=== PATIENT | male | born 1940 | race Caucasian/White ===

== ENCOUNTER → 2018-03-09 | Outpatient (REF) | payer BC ==
[2018-03-09 17:37] LABS: INR 1.07
[2018-03-09 17:38] LABS: PARTIAL THROMBOPLASTIN TIME 32.2 SECONDS (25.4-37.6)
[2018-03-10 14:24] LABS: FERRITIN 49 NG/ML (26-388); IRON (FE) 17 UG/DL (65-175); PERCENT SATURATION 6.1 % (19.7-50.0); TOTAL IRON BINDING CAPACITY 277 UG/DL (250-450)
== END ==
LOC: M LAB REF 16:54
DX: Z01.812 Encounter for preprocedural laboratory examination (principal); C34.32 Malignant neoplasm of lower lobe, left bronchus or lung

== ENCOUNTER → 2018-03-29 | Outpatient (CLI) | payer BC | LOC: M PLARAD 09:02 | DX: C34.32 Malignant neoplasm of lower lobe, left bronchus or lung (principal) | CPT/HCPCS: 78815 ==

== ENCOUNTER → 2018-04-14 | Outpatient (CLI) | payer BC ==
[~2018-04-14] MED LIST: CLINDAMYCIN 600 MG/50 ML PREMIX BAG As Ordered; LIDOCAINE 2% MDV 20 ML VIAL As Ordered
== END | disposition home or self-care (01) ==
LOC: M IRPRO 09:13
DX: C34.90 Malignant neoplasm of unspecified part of unspecified bronchus or lung (principal)
CPT/HCPCS: 36561

== ENCOUNTER 2018-04-27 12:37 | Outpatient (CLI) | payer BC ==
[~2018-04-27 12:37] MED LIST changes: -CLINDAMYCIN 600 MG/50 ML PREMIX BAG As Ordered; -LIDOCAINE 2% MDV 20 ML VIAL As Ordered; +SODIUM CHLORIDE 0.9% INJ 10 ML SYR IV
[2018-04-27 12:55] LABS: IMMEDIATE SPIN CROSSMATCH 1 2
[2018-04-27] MEDS: diphenhydrAMINE 25 MG CAP PO (13:06)
[2018-04-27] MEDS: ACETAMINOPHEN TAB 650MG DOSE (2X325MG) PO (13:06)
[2018-04-27] MEDS: FUROSEMIDE 20 MG/2 ML VIAL (J1940) IV (16:50)
== END 2018-04-27 16:50 | disposition home or self-care (01) ==
LOC: M INFU 12:37
DX: D64.9 Anemia, unspecified (principal); C34.90 Malignant neoplasm of unspecified part of unspecified bronchus or lung; Z88.0 Allergy status to penicillin
CPT/HCPCS: 36430

== ENCOUNTER → 2018-04-27 | Outpatient (REF) | payer BC ==
[2018-04-27 10:42] LABS: RETIC HEMOGLOBIN EQUIVALENT 33.6 pg (24-36); RETICULOCYTE # 49.7 10^9/L (17-77); RETICULOCYTE % 1.8 % (0.5-1.5)
[2018-04-27 11:01] LABS: FERRITIN 47 NG/ML (26-388); IRON (FE) 28 UG/DL (65-175); PERCENT SATURATION 10.1 % (19.7-50.0); TOTAL IRON BINDING CAPACITY 278 UG/DL (250-450); TOTAL PROTEIN 6.9 GM/DL (6.4-8.2)
[2018-04-28 11:24] LABS: ALBUMIN % 47.8 % (55.8-66.1); ALPHA-1-GLOBULIN % 6.9 % (2.9-4.9); ALPHA-1-GLOBULINS 0.48 GM/DL (0.17-0.41); ALPHA-2-GLOBULINS 1.13 GM/DL (0.42-0.99); ALPHA-2-GLOBULINS % 16.4 % (7.1-11.8); BETA-1-GLOBULINS 0.49 GM/DL (0.28-0.60); BETA-1-GLOBULINS % 7.1 % (4.7-7.2); BETA-2-GLOBULINS 0.49 GM/DL (0.19-0.55); BETA-2-GLOBULINS % 7.1 % (3.2-6.5); GAMMA GLOBULIN % 14.7 % (11.1-18.8); GAMMA GLOBULINS 1.01 GM/DL (0.65-1.58)
[2018-04-28 14:17] LABS: HAPTOGLOBIN 318 mg/dL (34-200)
== END ==
LOC: M LAB REF 10:32
DX: C34.32 Malignant neoplasm of lower lobe, left bronchus or lung (principal); D64.9 Anemia, unspecified

== ENCOUNTER 2018-06-16 12:02 | Outpatient (CLI) | payer BC ==
[2018-06-16] MEDS: diphenhydrAMINE 25 MG CAP PO ×2 (13:40)
[2018-06-16] MEDS: ACETAMINOPHEN TAB 650MG DOSE (2X325MG) PO ×2 (13:41)
[2018-06-16] MEDS: FUROSEMIDE 20 MG/2 ML VIAL (J1940) IV ×2 (18:36)
[2018-06-16] MEDS: SODIUM CHLORIDE 0.9% INJ 10 ML SYR IV ×2 (18:47)
[2018-06-17] MEDS ORDERED: SODIUM CHLORIDE 0.9% INJ 10 ML SYR IV ×2 (09:00)
== END 2018-06-16 19:30 | disposition home or self-care (01) ==
LOC: M OPCLI4PV 12:02 → M MSPAV 12:31 → M OPCLI4PV 19:30
DX: D64.9 Anemia, unspecified (principal)
CPT/HCPCS: 36430

== ENCOUNTER → 2018-07-16 | Outpatient (CLI) | payer BC ==
[~2018-07-16] MED LIST changes: +BAYE325T12 PO; +CART240C3 PO; +CLOP75TA2 PO; +FURO20TA2 PO; +GLIM4TAB PO; +IRON27TA2 PO; +LIDO2.5C15 TOP; -SODIUM CHLORIDE 0.9% INJ 10 ML SYR IV
--- NOTE | 2018-07-16 12:08 | REP ---
REASON: History of lung carcinoma. COMPARISON: 11/03/2011 The lack of intravenous contrast decreases the sensitivity of the exam. There is mediastinal and possible hilar adenopathy, increased from the prior exam. There are no pleural or pericardial effusions. The imaged upper abdomen again shows bilateral low-density adrenal gland masses, status quo, and having consistently low Hounsfield unit readings indicating benignity. The imaged osseous structures show no significant changes from the prior exam. Evaluation of the lung mccauley shows a cavitating mass in the left lower lobe which measures approximately 6 x 3.8 x 3.6 cm. This represents a change from the prior CT. There is a new small asymmetric nodule measuring 6 mm in the left upper lobe. There is a new spiculated nodule in the right lower lobe anteriorly abutting the major fissure and measuring 1.1 cm. Chronic bibasilar fibrotic changes are again suspected, status quo. IMPRESSION: 1. Adenopathy and suspected adenopathy but seen on a limited noncontrast-enhanced examination as described above. 2. Stable benign-appearing adrenal gland masses. 3. Cavitating mass left lower lobe with additional pulmonary nodules and chronic lung field changes as described above. 4. Other findings as described above. Electronically Signed by Matthew Sorto DO 07/16/2018 12:27 P
--- NOTE | 2018-07-16 12:33 | REP ---
REASON: History of carcinoma of the lung. COMPARISON: None. For description of the lung bases, please see the CT report made same day. Lack of intravenous contrast decreases the sensitivity of the exam. The liver, gallbladder, spleen, and pancreas are grossly within normal limits. There are bilateral nephroliths not causing obstructive phenomenon. There are bilateral renovascular calcifications. There is calcific atherosclerotic change seen throughout the abdominal aorta. The colon is content filled. There is no free fluid or free air in the abdomen. Retroperitoneal adenopathy can not be evaluated for due to the lack of oral bowel preparatory contrast and intravenous contrast, I cannot accurately assess for mesenteric lymphadenopathy. There are no gross mesenteric masses suspected. Multiple noncontrast opacified bowel loops abut the retroperitoneum making evaluation for retroperitoneal adenopathy difficult. Again, I see no gross masses, although I cannot rule out retroperitoneal adenopathy. There is a large amount of content in the rectosigmoid vault. Bone window technique throughout the exam shows chronic spinal, hip, and sacroiliac joint degenerative changes. IMPRESSION: Exam limitations and findings as described above. Electronically Signed by Matthew Sorto DO 07/16/2018 01:12 P
== END ==
LOC: M RAD 11:01
PROVIDERS: ATTEND Internal Medicine Medical Oncology
DX: C34.90 Malignant neoplasm of unspecified part of unspecified bronchus or lung (principal)

== ENCOUNTER → 2018-11-10 | Outpatient (CLI) | payer BC ==
[~2018-11-10] MED LIST changes: +GASTROGRAFIN SOLUTION 30ML (Q9963) As Ordered ONE; +ISOVUE-370 76% 100ML VIAL (Q9967) As Ordered ONE
--- NOTE | 2018-11-11 03:18 | REP ---
Clinical: Colon cancer. Technique: Axial contrast enhanced images from the thoracic inlet to the upper abdomen with coronal and sagittal re-formations using 100 ml Isovue 370 intravenous contrast material. Comparison: 07/16/2018 Findings: The lung mccauley demonstrate bilateral predominantly mid to lower lobe chronic fibrosis and interstitial changes along with scattered subtle ground-glass type opacity and mild bronchiectasis. 11 mm soft tissue nodule along the periphery of the right upper lobe (image 47) remains stable. Area of presumed chronic atelectasis/consolidation along the medial left upper lobe appears slightly decreased from prior examination and includes a subtle spiculated 1.9 cm soft tissue component along the superior aspect (image 46) which is similar to prior examination and minimally decreased as well. No further acute nodule or mass lesion identified. Mediastinum demonstrates stable adenopathy with pretracheal and precarinal lymph nodes measuring up to 1.7 cm. Atherosclerotic changes to the thoracic aorta and coronary arteries again noted and unchanged. No evidence for aortic aneurysm or dissection. No cardiomegaly or pericardial effusion. Surrounding musculoskeletal structures demonstrate age-related changes without focal osseous abnormality. Impression: 1. Relatively chronic and stable-appearing changes including 11 mm nodule in the periphery of the right upper lobe and somewhat spiculated mass-like component to the medial left lower lobe chronic opacity which may be minimally decreased in size. 2. Underlying diffuse chronic areas of fibrosis, scarring and minimal bronchiectasis primarily involving the mid to lower lobes unchanged. Stable mediastinal adenopathy. 3. No obvious new acute mediastinal or pleuroparenchymal process. Electronically Signed by Behzad Araiza MD 11/11/2018 03:09 A
--- NOTE | 2018-11-11 03:28 | REP ---
Clinical: History of lung cancer. Technique: Axial contrast enhanced and delayed images of the abdomen using oral (per protocol) and 100 ml Isovue 370 intravenous contrast material with coronal and sagittal re-formations. Comparison: 07/16/2018. Findings: Please refer to chest CT for evaluation of the lung bases. Liver, spleen, pancreas, gallbladder, and bilateral kidneys are normal / stable. Subcentimeter renal hypodensities are too small to characterize but likely represent cysts. Hyperplastic changes to the bilateral adrenal glands remain stable. Evaluation of the visualized enteric system demonstrates moderate to significant colonic fecal stasis without obstruction or acute inflammatory process. Significant atherosclerotic changes to the visualized aorta and with mural thrombus noted. Incidental circumaortic left renal veins noted. No ascites. No intraperitoneal or retroperitoneal adenopathy. Impression: 1. Stable hyperplastic changes to the bilateral adrenal glands. 2. Subcentimeter bilateral renal hypodensities too small to characterize but likely representing cysts. 3. Colonic fecal stasis. Electronically Signed by Behzad Araiza MD 11/11/2018 03:19 A
== END ==
LOC: M RAD 11:03
PROVIDERS: ATTEND Internal Medicine Hematology & Oncology
DX: C34.32 Malignant neoplasm of lower lobe, left bronchus or lung (principal)
CPT/HCPCS: 71260; 74160; Q9963; Q9967

== ENCOUNTER → 2018-12-19 | Outpatient (CLI) | payer BC ==
[~2018-12-19] MED LIST changes: +AMIO200T PO; +CLAR10CA3 PO; +CORE3.12 PO; -GASTROGRAFIN SOLUTION 30ML (Q9963) As Ordered ONE; -ISOVUE-370 76% 100ML VIAL (Q9967) As Ordered ONE
--- NOTE | 2018-12-19 14:45 | REP ---
LIMITED ULTRASOUND RIGHT PLEURAL SPACE: Real-time sonographic evaluation of the right pleural space performed prior to a scheduled thoracentesis. There is minimal right pleural fluid present. Scheduled thoracentesis procedure is not performed as it would be virtually impossible to aspirate the tiny amount of right pleural fluid present. Electronically Signed by Ab Gruber MD 12/19/2018 07:50 P
== END ==
LOC: M RADPRO 12:08
PROVIDERS: ATTEND Internal Medicine Cardiovascular Disease
DX: J90 Pleural effusion, not elsewhere classified (principal)

== ENCOUNTER → 2018-12-24 | Outpatient (REF) ==
[~2018-12-24] MED LIST changes: +CIPR5SUS PO; +HYDR-3910 PO; +ISOS20TA PO
[2018-12-24 13:38] LABS: ALBUMIN 3.1 GM/DL (3.2-5.2); BILIRUBIN,TOTAL 0.3 MG/DL (0.2-1.0); CALCIUM LEVEL 7.8 MG/DL (8.8-10.2); CHOLESTEROL RISK RATIO 3.86 (<5); CREATININE FOR GFR 2.2 MG/DL (0.70-1.30); MAGNESIUM LEVEL 2.8 MG/DL (1.8-2.4); POTASSIUM SERUM 5.2 MEQ/L (3.5-5.1)
== END ==
LOC: M LAB REF 07:04
DX: Z00.00 Encounter for general adult medical examination without abnormal findings (principal)

== ENCOUNTER → 2019-02-13 | Outpatient (CLI) | payer BC ==
[~2019-02-13] MED LIST changes: +ACET1TAB55 PO; +ARTH650T17 PO; +AZIT50VL IV; +CARV3.12 PO; +CEFT1INJ4 IV; +FERR325T18 PO; +FURO40TA2 PO; -GLIM4TAB PO; +GLIM4TAB5 PO; +IPRA0.00 NEB; +ISOS30TA4 PO; +K-TA10TA2 PO; +LORA-436 PO; +PRED20TA PO; +XANA0.25 PO; +XARE15TA PO; +[UNRECOGNIZED DRUG - CODE] IV; +[UNRECOGNIZED DRUG - CODE] IV
--- NOTE | 2019-02-13 09:10 | REP ---
Bilateral renal artery Doppler ultrasound: Right Kidney: Renal length is 9.6 cm. Extraparenchymal renal artery. Peak renal artery flow velocity the 338 cm/ sec Peak aortic velocity: 48 cm/sec Renal/aortic ratio: 7.0 Intraparenchymal renal arteries. Resistive index: upper pole 0.90 mid pole 0.89 lower pole 0.92 Acceleration time: upper pole 0.066 mid pole 0.053 lower pole 0.050 Left kidney: Renal length is 9.7 cm. Extraparenchymal renal artery: Peak renal artery flow velocity: 163 cm/sec. Peak aortic velocity: 48 cm/sec Renal/aortic ratio: 3.4 Intraparenchymal renal arteries: Resistive index: Upper pole 0.91 mid pole 0.83 lower pole 0.93 Acceleration time: Upper pole 0.058 mid pole 0.044 lower pole 0.075 Impression: The peak flow velocity of the right renal artery is elevated, possibly representing stenosis. I would recommend follow-up renal artery MRA for further evaluation. Bilateral renal ultrasound: The right kidney measures 9.6 x 5.6 x 4.7 cm. The left kidney measures 9.7 x 4.9 x 5.8 cm. The kidneys are in the low normal size range. Renal cortical echogenicity is normal bilaterally. There is no hydronephrosis, calculus, solid or cystic mass on the right on the left. The Bladder: The pre void bladder volume is 157 ml. Postvoid bladder volume is 18 ml. Postvoid residual is 11%. No bladder wall masses or polyps are identified. Mild bladder wall trabeculations are noted. Impression: The kidneys are in the low normal size range. There are no renal masses or cysts. There are no calculi. There is no hydronephrosis. Mild bladder wall trabeculations are identified. No bladder wall masses or polyps are identified. Postvoid bladder residual is 11%. Electronically Signed by Ab Stacy MD 02/13/2019 09:02 A
== END ==
LOC: M RAD 06:17
PROVIDERS: ATTEND Internal Medicine Nephrology
DX: N18.4 Chronic kidney disease, stage 4 (severe) (principal); I12.9 Hypertensive chronic kidney disease with stage 1 through stage 4 chronic kidney disease, or unspecified chronic kidney disease; E11.22 Type 2 diabetes mellitus with diabetic chronic kidney disease

== ENCOUNTER 2019-03-08 06:53 | Observation (INO) | payer BC ==
[~2019-03-08] VITALS: Ht 170.2 cm; Wt 55.0 kg
[~2019-03-08 06:53] MED LIST changes: -ACET1TAB55 PO; -ARTH650T17 PO; -AZIT50VL IV; +BUPIVACAINE HCL 0.5% 10 ML VIAL As Ordered ONE; -CARV3.12 PO; -CEFT1INJ4 IV; -FERR325T18 PO; -FURO40TA2 PO; +GLIM4TAB PO; -GLIM4TAB5 PO; +HEPARIN 1,000 UNITS/ML 10ML VIAL (FOR RADIOLOGY& DIALYSIS ONLY) As Ordered ONE; -IPRA0.00 NEB; -ISOS30TA4 PO; +ISOVUE-300 61% 50ML VIAL (Q9967) As Ordered ONE; -K-TA10TA2 PO; +LIDOCAINE 2% MDV 20 ML VIAL As Ordered ONE; -LORA-436 PO; +MIDAZOLAM INJ 2 MG/2 ML VIAL (J2250) As Ordered ONE; -PRED20TA PO; -XANA0.25 PO; -XARE15TA PO; -[UNRECOGNIZED DRUG - CODE] IV; -[UNRECOGNIZED DRUG - CODE] IV; +diphenhydrAMINE INJ 50MG/ML VIAL (J1200) As Ordered ONE; +fentaNYL 100 MCG/2 ML INJECTION (J3010) As Ordered ONE
[2019-03-08 07:50] LABS: CALCIUM LEVEL 8.9 MG/DL (8.8-10.2); CREATININE FOR GFR 2.32 MG/DL (0.70-1.30); GLOMERULAR FILTRATION RATE 29.1 (>42); POTASSIUM SERUM 4.9 MEQ/L (3.5-5.1)
[2019-03-08] MEDS ORDERED: PROTAMINE SULF INJ 50 MG/5 ML VIAL (J2720) As Ordered ONE (08:41)
[2019-03-08] MEDS ORDERED: ACETAMINOPHEN 325 MG TAB As Ordered ONE (13:36)
--- NOTE | 2019-03-08 13:52 | IPNPDOC ---
Date Seen The patient was seen on 03/08/19. Progress Note Vascular Surgery Dr Ruby HPI: 78year oldM scheduled for renal angiogram for possible CASSANDRA this AM with Dr Ruby. Access obtained via Rt groin, pt completed procedure without complications, no intervention required. The pt was ordered to continue BR from approximately 9 AM to noon. Plan for D/C at 1 pm. I was called by IR RN related to the pt attempting to stand and noting Rt leg weakness. Foot has been warm to touch and pulses easily obtained with doppler. The pt has not had any LISA, vision change, dizziness, dysarthria, dysphagia. No other weakness. Reports numb sensation anterior thigh area. Denies any fevers, chills, weakness, fatigue, Headache, Chest Pain, Shortness of breath, cough, palpitations, abdominal pain, N/V/D or changes in bowel or bladder habits. PMHx: Afib CHF Stage 4 lung CA, on immunotherapy, follows with Dr Martell. Lung biopsy 01/17. PE: GEN: 78yoM, appears stated age. Well-nourished, well developed. No acute distress. Alert and oriented x 3, following commands. HEENT: Normocephalic, atraumatic. Pupils are equal, round, and reactive to light. Extraocular movements are intact. No nystagmus appreciated. Sclera are nonicteric. Conjunctiva without injection. No facial asymmetry. Moist mucous membranes. CHEST: Regular rate and rhythm, +S1, +S2 LUNGS: Clear to auscultation bilaterally. No wheezes, rales, or rhonchi. ABD: Round, soft, non-tender, non-distended. EXT: Pulses are obtained with doppler. B/L feet are warm with good cap refill. No lower extremity edema appreciated. NEURO: Alert and oriented x 3. Cranial nerves III-XII are intact. The pt has decreased sensation anterior thigh area. The pt has good strength plantar and dorsiflexion of foot. He has difficulty holding his leg off the stretcher and has decreased strength with flexion and extension at knee. A&P: 1. S/P Renal artery angiogram 03/08/[address] Ruby. No intervention was required. The pt is reviewed and examined as per Dr Ruby, Dr Ruby administered a deep local injection at the access site Rt Femoral artery with lidocaine marcaine mix. It is possible the pt's symptoms are anesthetic induced. Plan to observe the pt in IR for now. Update labs. Request Hospitalist consult for any additional recommendations prior to dischar ging the pt home. Monitor. VS, I&O, 24H, Fishbone Vital Signs/I&O Vital Signs Date Time Temp Pulse Resp B/P (MAP) Pulse Ox O2 Delivery O2 Flow Rate FiO2 03/08/19 11:00 54 03/08/19 10:31 18 95 03/08/19 08:55 3 03/08/19 07:22 98.1 Laboratory Data 24H LABS Laboratory Tests 2 03/08/19 07:15: Anion Gap 5L, Glomerular Filtration Rate 29.1L, Blood Urea Nitrogen 83H, Creatinine 2.32H, Sodium Level 141, Potassium Level 4.9, Chloride Level 109H, Carbon Dioxide Level 27, Calcium Level 8.9 CBC/BMP Laboratory Tests 03/08/19 07:15 Calcium Level 8.9 Aura Moss Mar 08, 2019 13:52
[2019-03-08 14:16] LABS: HEMATOCRIT 30.8 % (42.0-52.0); HEMOGLOBIN 9.7 g/dl (13.5-17.5); MEAN CORPUSCULAR HEMOGLOBIN 30.7 pg (27.0-33.0); MEAN CORPUSCULAR HGB CONC 31.5 g/dl (32.0-36.5); MEAN CORPUSCULAR VOLUME 97.5 fl (80.0-96.0); PLATELET COUNT, AUTOMATED 230 10^3/uL (150-450); RED BLOOD COUNT 3.16 10^6/uL (4.30-6.10); WHITE BLOOD COUNT 9.5 10^3/uL (4.0-10.0)
[2019-03-08 14:44] LABS: CALCIUM LEVEL 8.8 MG/DL (8.8-10.2); CREATININE FOR GFR 2.3 MG/DL (0.70-1.30); GLOMERULAR FILTRATION RATE 29.4 (>42); POTASSIUM SERUM 4.4 MEQ/L (3.5-5.1)
[2019-03-08] MEDS ORDERED: FERR325T18 PO (15:03)
[2019-03-08] MEDS ORDERED: LORA-436 PO (15:03)
[2019-03-08] MEDS ORDERED: ISOS30TA4 PO (15:03)
[2019-03-08] MEDS ORDERED: ACET1TAB55 PO (15:03)
[2019-03-08] MEDS ORDERED: FURO40TA2 PO (15:03)
[2019-03-08] MEDS ORDERED: ACETAMINOPHEN 325 MG TAB PO PRN (15:15)
--- NOTE | 2019-03-08 15:20 | HPEPDOC ---
[facility] Medical History & Physical Date of Admission Mar 08, 2019 Date of Service: Mar 08, 2019 History and Physical CHIEF COMPLAINT: left leg numbness HISTORY OF PRESENT ILLNESS: 78 yo male was in IR today for renal angiogram for concern of renal artery stenosis. Post procedure patient complained of left thigh numbness. No other medical complaints. PAST MEDICAL HISTORY: 1. afib 2. CHF 3. Lung CA ALLERGIES: Please see below. REVIEW OF SYSTEMS: Negative except as per HPI HOME MEDICATIONS: Please see below. PHYSICAL EXAMINATION: VITAL SIGNS: See below GENERAL APPEARANCE: NAD, elderly, frail HEENT: NC/AT CARDIOVASCULAR: +S1S2, irregular LUNGS: CTA B/L ABDOMEN: soft, NT, +BS, bandage RLQ, area is C/D/I. EXTREMITIES: no edema NEUROLOGICAL: strength 5/5 throughout, sensation intact throughout PSYCHIATRIC: AAOx3, in good spirits LABORATORY DATA: See below. MICROBIOLOGY: Please see below. A/P: 78 yo male with LLE numbness status post renal angiogram #LLE numbness - likely secondary to local anaesthesia from procedure today - admitting for observation - neuro checks #afib #CHF #squamous lung CA #DVT prophylaxis Vital Signs Vital Signs Date Time Temp Pulse Resp B/P (MAP) Pulse Ox O2 Delivery O2 Flow Rate FiO2 03/08/19 13:30 48 16 95 03/08/19 08:55 3 03/08/19 07:22 98.1 Laboratory Data Labs 24H Laboratory Tests 2 03/08/19 07:15: Anion Gap 5L, Glomerular Filtration Rate 29.1L, Blood Urea Nitrogen 83H, Creatinine 2.32H, Sodium Level 141, Potassium Level 4.9, Chloride Level 109H, Carbon Dioxide Level 27, Calcium Level 8.9 03/08/19 14:03: Anion Gap 6L, Glomerular Filtration Rate 29.4L, Blood Urea Nitrogen 81H, Creatinine 2.30H, Sodium Level 140, Potassium Level 4.4, Chloride Level 106, Carbon Dioxide Level 28, Calcium Level 8.8, Nucleated Red Blood Cells % (auto) 0.0 CBC/BMP Laboratory Tests 03/08/19 07:15 Calcium Level 8.9 03/08/19 14:03 Calcium Level 8.8, Red Blood Count 3.16 L, Mean Corpuscular Volume 97.5 H, Mean Corpuscular Hemoglobin 30.7, Mean Corpuscular Hemoglobin Concent 31.5 L, Red Cell Distribution Width 16.0 H Home Medications Scheduled Amiodarone HCl (Amiodarone HCl) 200 Mg Tablet, 200 MG PO DAILY Aspirin (Aspirin) 325 Mg Tab, 325 MG PO DAILY Carvedilol (Coreg) 3.125 Mg Tablet, 3.125 MG PO BID Ferrous Sulfate (Ferrous Sulfate) 325 Mg Tablet, 325 MG PO DAILY Furosemide (Furosemide) 40 Mg Tablet, 40 MG PO DAILY Glimepiride (Glimepiride) 4 Mg Tab, 4 MG PO DAILY Isosorbide Mononitrate (Isosorbide Mononitrate ER) 30 Mg Tab.er.24h, 30 MG PO DAILY Loratadine (Loratadine) 10 Mg Tablet, 10 MG PO DAILY Scheduled PRN Acetaminophen (Acetaminophen) 325 Mg Tablet, 650 MG PO Q4H PRN for PAIN Allergies Coded Allergies: Penicillins (Verified Allergy, Mild, RASH, 03/08/19) A-FIB/CHADSVASC A-FIB History Current/History of A-Fib/PAF?: Yes Current PO Anticoag Therapy: No DAI JEFFERSON MD Mar 08, 2019 15:19
[2019-03-08] MEDS: CARVedilol 3.125 MG TAB PO SCH (20:35)
[2019-03-08 22:00] VITALS: BP 139/63
[2019-03-09 06:00] VITALS: BP 103/51
[2019-03-09 06:42] LABS: HEMATOCRIT 32.3 % (42.0-52.0); HEMOGLOBIN 10.3 g/dl (13.5-17.5); MEAN CORPUSCULAR HEMOGLOBIN 31.5 pg (27.0-33.0); MEAN CORPUSCULAR HGB CONC 31.9 g/dl (32.0-36.5); MEAN CORPUSCULAR VOLUME 98.8 fl (80.0-96.0); PLATELET COUNT, AUTOMATED 233 10^3/uL (150-450); RED BLOOD COUNT 3.27 10^6/uL (4.30-6.10); WHITE BLOOD COUNT 9.2 10^3/uL (4.0-10.0)
[2019-03-09 07:00] LABS: ALBUMIN 3.3 GM/DL (3.2-5.2); BILIRUBIN,TOTAL 0.5 MG/DL (0.2-1.0); CALCIUM LEVEL 8.9 MG/DL (8.8-10.2); CREATININE FOR GFR 2.2 MG/DL (0.70-1.30); POTASSIUM SERUM 4.6 MEQ/L (3.5-5.1); TOTAL PROTEIN 7.4 GM/DL (6.4-8.2)
[2019-03-09] MEDS ORDERED: GLIMEPIRIDE 2 MG TAB PO SCH (08:00)
[2019-03-09 08:30] VITALS: BP 87/48
[2019-03-09] MEDS ORDERED: AMIODARONE 200 MG TAB (PACERONE) PO SCH (09:00)
[2019-03-09] MEDS ORDERED: ISOSORBIDE MON. (IMDUR) 30 MG XR TAB PO SCH (09:00)
[2019-03-09] MEDS ORDERED: LORATADINE 10 MG TAB PO SCH (09:00)
[2019-03-09] MEDS ORDERED: FUROSEMIDE 40 MG TAB PO SCH (09:00)
[2019-03-09] MEDS ORDERED: FERROUS SULFATE 325MG TAB PO SCH (09:00)
[2019-03-09 10:00] VITALS: BP 140/60
[2019-03-09 10:08] VITALS: BP 140/60
[2019-03-09] MEDS: CARVedilol 3.125 MG TAB PO SCH (10:08)
--- NOTE | 2019-03-09 11:08 | IPNPDOC ---
Date Seen The patient was seen on 03/09/19. Progress Note Vascular Surgery Dr Ruby HPI: 78year oldM scheduled for renal angiogram for possible CASSANDRA this AM with Dr Ruby. Access obtained via Rt groin, pt completed procedure without complications, no intervention required. The pt was noted to have Rt leg weakness/numbness after the procedure. Admission for observation arranged as per Hospitalist. This AM the pt reports RLE has returned to baseline. Denies weakness or numbness and states he has been OOB ambulating with walker. Denies any fevers, chills, weakness, fatigue, Headache, Chest Pain, Shortness of breath, cough, palpitations, abdominal pain, N/V/D or changes in bowel or bladder habits. PMHx: Afib CHF Stage 4 lung CA, on immunotherapy, follows with Dr Martell. Lung biopsy 01/17. PE: GEN: 78yoM, appears stated age. Well-nourished, well developed. No acute distress. Alert and oriented x 3, following commands. HEENT: Normocephalic, atraumatic. Pupils are equal, round, and reactive to light. Extraocular movements are intact. No nystagmus appreciated. Sclera are nonicteric. Conjunctiva without injection. No facial asymmetry. Moist mucous membranes. CHEST: Regular rate and rhythm, +S1, +S2 LUNGS: Clear to auscultation bilaterally. No wheezes, rales, or rhonchi. ABD: Round, soft, non-tender, non-distended. EXT: Pulses are obtained with doppler. B/L feet are warm with good cap refill. No lower extremity edema appreciated. NEURO: Alert and oriented x 3. Cranial nerves III-XII are intact. The pt has nml sensation to light touch RLE. The pt has equal strength LEs B/L A&P: 1. S/P Renal artery angiogram 03/08/[address] Ruby. No intervention was required. The pt has been reviewed and examined as per Dr Ruby, Dr Ruby administered a deep local injection at the access site Rt Femoral artery with lidocaine marcaine mix. The pt's symptoms were likely anesthetic induced, the Pt has returned to his baseline status. VS, I&O, 24H, Fishbone Vital Signs/I&O Vital Signs Date Time Temp Pulse Resp B/P (MAP) Pulse Ox O2 Delivery O2 Flow Rate FiO2 03/09/19 10:08 60 140/60 03/09/19 06:00 97.7 20 99 03/08/19 08:55 3 I&O- Last 24 Hours up to 6 AM 03/09/19 06:00 Intake Total 240 ml Output Total 500 ml Balance -260 ml Laboratory Data 24H LABS Laboratory Tests 2 03/08/19 14:03: Nucleated Red Blood Cells % (auto) 0.0, Anion Gap 6L, Glomerular Filtration Rate 29.4L, Blood Urea Nitrogen 81H, Creatinine 2.30H, Sodium Level 140, Potassium Level 4.4, Chloride Level 106, Carbon Dioxide Level 28, Calcium Level 8.8 03/08/19 20:08: Bedside Glucose (Misc Panel) 172H 03/09/19 05:57: Bedside Glucose (Misc Panel) 47L 03/09/19 06:22: Nucleated Red Blood Cells % (auto) 0.0, Anion Gap 4L, Glomerular Filtration Rate 31.0L, Blood Urea Nitrogen 77H, Creatinine 2.20H, Sodium Level 141, Potassium Level 4.6, Chloride Level 110H, Carbon Dioxide Level 27, Calcium Level 8.9, Aspartate Amino Transf (AST/SGOT) 16, Alanine Aminotransferase (ALT/SGPT) 17, Alkaline Phosphatase 77, Total Bilirubin 0.5, Total Protein 7.4, Albumin 3.3, Albumin/Globulin Ratio 0.80L 03/09/19 06:55: Bedside Glucose (Misc Panel) 108 CBC/BMP Laboratory Tests 03/08/19 14:03 Red Blood Count 3.16 L, Mean Corpuscular Volume 97.5 H, Mean Corpuscular Hemoglobin 30.7, Mean Corpuscular Hemoglobin Concent 31.5 L, Red Cell Distribution Width 16.0 H, Calcium Level 8.8 03/09/19 06:22 Red Blood Count 3.27 L, Mean Corpuscular Volume 98.8 H, Mean Corpuscular Hemoglobin 31.5, Mean Corpuscular Hemoglobin Concent 31.9 L, Red Cell Distribution Width 16.0 H, Calcium Level 8.9, Aspartate Amino Transf (AST/SGOT) 16, Alanine Aminotransferase (ALT/SGPT) 17, Alkaline Phosphatase 77, Total Bilirubin 0.5, Total Protein 7.4, Albumin 3.3 Aura Moss Mar 09, 2019 11:07
--- NOTE | 2019-03-09 12:42 | DS.PDOC ---
Discharge Summary General Date of Admission Mar 08, 2019 at 15:55 Date of Discharge 03/09/19 Discharge Summary PROCEDURES PERFORMED DURING STAY: [None]. ADMITTING DIAGNOSES: 1. leg numbness DISCHARGE DIAGNOSES: 1. afib 2. CHF 3. Lung CA 4. leg numbness secondary to local anaesthesia COMPLICATIONS/CHIEF COMPLAINT: Right Leg Numbness. HISTORY OF PRESENT ILLNESS: 78 yo male for right leg numbness s/p renal angiogram. HOSPITAL COURSE: Patient admitted for further evaluation and treatment. Symptoms resolved. Seen by PT and cleared. Hospital stay otherwise unremarkable. DISCHARGE MEDICATIONS: Please see below. ALLERGIES: Please see below. PHYSICAL EXAMINATION: VITAL SIGNS: See below GENERAL APPEARANCE: NAD, elderly, frail HEENT: NC/AT CARDIOVASCULAR: +S1S2, irregular LUNGS: CTA B/L ABDOMEN: soft, NT, +BS, bandage RLQ, area is C/D/I. EXTREMITIES: no edema NEUROLOGICAL: strength 5/5 throughout, sensation intact throughout PSYCHIATRIC: AAOx3, in good spirits LABORATORY DATA: Please see below. ACTIVITY: [As tolerated]. DISPOSITION: 01 Home, Self-Care. DISCHARGE INSTRUCTIONS: 1. follow up pcp in 2-5 days 2. follow up vascular surgery as scheduled. DISCHARGE CONDITION: [Stable]. TIME SPENT ON DISCHARGE: 25 minutes. Vital Signs/I&Os Vital Signs Date Time Temp Pulse Resp B/P (MAP) Pulse Ox O2 Delivery O2 Flow Rate FiO2 03/09/19 10:08 60 140/60 03/09/19 06:00 97.7 20 99 03/08/19 08:55 3 I&O- Last 24 Hours up to 6 AM 03/09/19 06:00 Intake Total 240 ml Output Total 500 ml Balance -260 ml Laboratory Data Labs 24H Laboratory Tests 2 03/08/19 14:03: Nucleated Red Blood Cells % (auto) 0.0, Anion Gap 6L, Glomerular Filtration Rate 29.4L, Blood Urea Nitrogen 81H, Creatinine 2.30H, Sodium Level 140, Potassium Level 4.4, Chloride Level 106, Carbon Dioxide Level 28, Calcium Level 8.8 03/08/19 20:08: Bedside Glucose (Misc Panel) 172H 03/09/19 05:57: Bedside Glucose (Misc Panel) 47L 03/09/19 06:22: Nucleated Red Blood Cells % (auto) 0.0, Anion Gap 4L, Glomerular Filtration Rate 31.0L, Blood Urea Nitrogen 77H, Creatinine 2.20H, Sodium Level 141, Potassium Level 4.6, Chloride Level 110H, Carbon Dioxide Level 27, Calcium Level 8.9, Aspartate Amino Transf (AST/SGOT) 16, Alanine Aminotransferase (ALT/SGPT) 17, Alkaline Phosphatase 77, Total Bilirubin 0.5, Total Protein 7.4, Albumin 3.3, Albumin/Globulin Ratio 0.80L 03/09/19 06:55: Bedside Glucose (Misc Panel) 108 CBC/BMP Laboratory Tests 03/08/19 14:03 Red Blood Count 3.16 L, Mean Corpuscular Volume 97.5 H, Mean Corpuscular Hemoglobin 30.7, Mean Corpuscular Hemoglobin Concent 31.5 L, Red Cell Distribution Width 16.0 H, Calcium Level 8.8 03/09/19 06:22 Red Blood Count 3.27 L, Mean Corpuscular Volume 98.8 H, Mean Corpuscular Hemoglobin 31.5, Mean Corpuscular Hemoglobin Concent 31.9 L, Red Cell Distribution Width 16.0 H, Calcium Level 8.9, Aspartate Amino Transf (AST/SGOT) 16, Alanine Aminotransferase (ALT/SGPT) 17, Alkaline Phosphatase 77, Total Bilirubin 0.5, Total Protein 7.4, Albumin 3.3 FSBS Laboratory Tests Test 03/08/19 20:08 03/09/19 05:57 03/09/19 06:55 Range/Units Bedside Glucose (Misc Panel) 172 47 108 83-110 MG/DL Discharge Medications Scheduled Amiodarone HCl (Amiodarone HCl) 200 Mg Tablet, 200 MG PO DAILY, (Reported) Aspirin (Aspirin) 325 Mg Tab, 325 MG PO DAILY, (Reported) Carvedilol (Coreg) 3.125 Mg Tablet, 3.125 MG PO BID, (Reported) Ferrous Sulfate (Ferrous Sulfate) 325 Mg Tablet, 325 MG PO DAILY, (Reported) Furosemide (Furosemide) 40 Mg Tablet, 40 MG PO DAILY, (Reported) Glimepiride (Glimepiride) 4 Mg Tab, 4 MG PO DAILY, (Reported) Isosorbide Mononitrate (Isosorbide Mononitrate ER) 30 Mg Tab.er.24h, 30 MG PO DAILY, (Reported) Loratadine (Loratadine) 10 Mg Tablet, 10 MG PO DAILY, (Reported) Scheduled PRN Acetaminophen (Acetaminophen) 325 Mg Tablet, 650 MG PO Q4H PRN for PAIN, (Reported) Allergies Coded Allergies: Penicillins (Verified Allergy, Mild, RASH, 03/08/19) DAI JEFFERSON MD Mar 09, 2019 12:42
--- NOTE | 2019-03-17 08:04 | REPIR ---
DATE OF PROCEDURE: 03/08/2019 PREOPERATIVE DIAGNOSES: Coronary artery disease, renal artery stenosis. POSTOPERATIVE DIAGNOSES: Coronary artery disease, renal artery stenosis. PROCEDURE: Right common femoral arterial puncture. Selective left renal artery catheter placement with angiogram and pressure measurements. Selective right renal artery catheter placement with angiogram and pressure measurements. MYNX closure of the right common femoral arteriotomy. ATTENDING SURGEON: Dr. Teddy Ruby. ASSISTANTS: Elizabeth Calixto and Waleska Joshi. ANESTHESIA: Local sedation with 1 mg Versed, 50 mcg of fentanyl and 20 mL of 2% lidocaine mixed 0.5% Marcaine, Benadryl 50 mg. FLUORO TIME: 2.4 minutes. CONTRAST: 3.5 mL of Isovue-300. SEDATION TIME: 03:28 a.m. to 08:57 a.m. for a total 37 minutes. HEPARIN 7000 units, protamine 50 mg. COMPLICATIONS: None. DRAINS: None. SPECIMENS: None. IMPLANTS: None. INDICATION: The patient is a 78-year-old male with renal artery stenosis who will undergo angiography with possible angioplasty and stent. Risks, benefits and alternative options were discussed with the patient. DESCRIPTION OF PROCEDURE: The patient was taken to the angiography suite, placed supine on the angiography room table and the right common femoral artery was cannulated. Catheter was advanced into the aorta and into the left renal artery where an angiogram was performed showing no significant stenosis and pressure measurements recorded showing no significant pressure gradient. The catheter was advanced into the right renal artery and an angiogram was performed showing some mild luminal irregularity with pressure measurements showing mild pressure gradient with no intervention required. Catheters and wires were removed. A MYNX closure was used to close the arteriotomy in the right common femoral artery with an additional 10 minutes of adjunctive pressure applied for hemostasis. Dressings were then applied. The patient tolerated the procedure well. All instrument, sponge, needle counts were correct at the end of the case. There were no complications. Dr. Ruby was present for and directed the entire case. The patient was transferred to the recovery room and subsequently discharged in stable condition.
== END 2019-03-09 11:45 | disposition home or self-care (01) ==
LOC: M IRPRO 06:53 → M MS5PR 15:55 → INTOOBSV 15:55
PROVIDERS: ADMIT Surgery Vascular Surgery; ATTEND Surgery Vascular Surgery
DX: I70.1 Atherosclerosis of renal artery (principal); I25.10 Atherosclerotic heart disease of native coronary artery without angina pectoris; E11.9 Type 2 diabetes mellitus without complications; I11.0 Hypertensive heart disease with heart failure; I48.91 Unspecified atrial fibrillation; I50.9 Heart failure, unspecified; C34.92 Malignant neoplasm of unspecified part of left bronchus or lung; R20.2 Paresthesia of skin; Z79.899 Other long term (current) drug therapy; Z95.5 Presence of coronary angioplasty implant and graft; Z72.0 Tobacco use

== ENCOUNTER → 2019-03-22 | Outpatient (REF) | payer BC ==
[~2019-03-22] MED LIST changes: +ACET1TAB55 PO; -BUPIVACAINE HCL 0.5% 10 ML VIAL As Ordered ONE; +FERR325T18 PO; +FURO40TA2 PO; -HEPARIN 1,000 UNITS/ML 10ML VIAL (FOR RADIOLOGY& DIALYSIS ONLY) As Ordered ONE; +ISOS30TA4 PO; -ISOVUE-300 61% 50ML VIAL (Q9967) As Ordered ONE; -LIDOCAINE 2% MDV 20 ML VIAL As Ordered ONE; +LORA-436 PO; -MIDAZOLAM INJ 2 MG/2 ML VIAL (J2250) As Ordered ONE; -diphenhydrAMINE INJ 50MG/ML VIAL (J1200) As Ordered ONE; -fentaNYL 100 MCG/2 ML INJECTION (J3010) As Ordered ONE
== END ==
LOC: M LAB REF 13:25
PROVIDERS: ATTEND Internal Medicine Nephrology
DX: N18.4 Chronic kidney disease, stage 4 (severe) (principal)

== ENCOUNTER → 2019-03-31 | Outpatient (REF) | payer BC ==
[~2019-03-31] MED LIST changes: +ARTH650T17 PO; +AZIT50VL IV; +CARV3.12 PO; +CEFT1INJ4 IV; -GLIM4TAB PO; +GLIM4TAB5 PO; +IPRA0.00 NEB; +K-TA10TA2 PO; +PRED20TA PO; +XANA0.25 PO; +XARE15TA PO; +[UNRECOGNIZED DRUG - CODE] IV; +[UNRECOGNIZED DRUG - CODE] IV
[2019-03-31 18:19] LABS: ALBUMIN 3.6 GM/DL (3.2-5.2); CALCIUM LEVEL 8.3 MG/DL (8.8-10.2); CREATININE FOR GFR 2.28 MG/DL (0.70-1.30); GLOMERULAR FILTRATION RATE 29.7 (>42); PHOSPHORUS LEVEL 3.5 MG/DL (2.5-4.9); POTASSIUM SERUM 4.5 MEQ/L (3.5-5.1)
== END ==
LOC: M LAB REF 16:49
PROVIDERS: ATTEND Internal Medicine Nephrology
DX: N18.4 Chronic kidney disease, stage 4 (severe) (principal); I12.9 Hypertensive chronic kidney disease with stage 1 through stage 4 chronic kidney disease, or unspecified chronic kidney disease; E11.22 Type 2 diabetes mellitus with diabetic chronic kidney disease

== ENCOUNTER → 2019-04-11 | Outpatient (CLI) | payer BC ==
[~2019-04-11] MED LIST changes: -ARTH650T17 PO; -AZIT50VL IV; -CARV3.12 PO; -CEFT1INJ4 IV; +GLIM4TAB PO; -GLIM4TAB5 PO; -IPRA0.00 NEB; -K-TA10TA2 PO; -XANA0.25 PO; -XARE15TA PO; -[UNRECOGNIZED DRUG - CODE] IV; -[UNRECOGNIZED DRUG - CODE] IV
--- NOTE | 2019-04-11 15:22 | REP ---
PET/CT: HISTORY: Restaging malignant neoplasm of the left lung. Stage IV non-small cell lung carcinoma on maintenance chemotherapy. COMPARISONS: Comparison PET/CT study March 29, 2018. TECHNIQUE: 48 minutes following the intravenous injection of a 8.18 mCi dose of F-18 FDG, three-dimensional PET scintigraphy is acquired from the skull base to the proximal thighs. Triplanar noncontrast CT scanning is acquired through the same anatomic range for attenuation correction, and image registration with scan parameters optimized to minimize radiation exposure to the patient. PET scintigraphy and CT datasets were fused and displayed on a workstation with multiplanar and projection display capability. PET/CT FINDINGS: There is no abnormal hypermetabolic uptake in the head and neck soft tissues. There are scattered areas of normal variant skeletal muscle uptake. There is some residual hypermetabolic uptake in a right pericarinal lymph node with maximum standard uptake value 4.61. Otherwise, the previously noted hypermetabolic mediastinal adenopathy is improved. No abnormal pulmonary parenchymal hypermetabolic uptake is visible today. There is a cavitary lesion in the left lower lobe at the site of the previously noted hypermetabolic mass lesion. Maximum standard uptake value here is much improved, 2.62. Previously this was reported as 15.6. There is a small nodule in the right mid lung zone which is also improved maximum standard uptake value 1.75 today. Previously this was reported as 4.1. The smaller right lower lobe nodule is improved in size, barely visible, and no longer demonstrating metabolic uptake. There is no other abnormal hypermetabolic uptake within the chest. In the abdomen and pelvis there is no abnormal adrenal uptake. No abnormal hepatic uptake is seen. There is some skeletal muscle uptake about the left pelvis and in the upper thighs bilaterally. No suspicious hypermetabolic uptake is seen in the abdomen and pelvis. IMPRESSION: Improved PET/ CT findings. Some residual hypermetabolic uptake noted in the cavitary lesion remaining in the left lower lobe as well as in one right dana-carinal lymph node. Improved right lung pulmonary nodules. Electronically Signed by Xu [place] MD 04/11/2019 04:57 P
== END ==
LOC: M PLARAD 08:15
PROVIDERS: ATTEND Internal Medicine Hematology & Oncology
DX: C34.92 Malignant neoplasm of unspecified part of left bronchus or lung (principal)
CPT/HCPCS: 78815; A9552

== ENCOUNTER 2019-04-21 15:42 | Inpatient (IN) | payer MEDICARE, BC ==
[2019-04-20 17:34] VITALS: BP 117/85
[2019-04-21] VITALS (15 sets, daily range): BP systolic 80–169; BP diastolic 48–81
[~2019-04-21] VITALS: Ht 167.6 cm; Wt 58.3 kg
[~2019-04-21 15:42] MED LIST changes: -GLIM4TAB PO; +GLIM4TAB5 PO
[2019-04-21] MEDS ORDERED: CEFT1INJ4 IV (18:14)
[2019-04-21] MEDS ORDERED: [UNRECOGNIZED DRUG - CODE] IV (18:14)
[2019-04-21] MEDS ORDERED: AZIT50VL IV (18:14)
[2019-04-21] MEDS ORDERED: [UNRECOGNIZED DRUG - CODE] IV (18:14)
[2019-04-21] MEDS ORDERED: NOREPINEPHRINE 4 MG/4 ML AMP As Ordered ONE (18:37)
[2019-04-21] MEDS ORDERED: DEXTROSE 50% 50 ML SYRINGE IV PRN (19:45)
[2019-04-21] MEDS ORDERED: GLUCOSE 4 GM CHEW TABLET PO PRN (19:45)
[2019-04-21] MEDS ORDERED: GLUCAGON FOR INJ 1 MG VIAL (J1610) SC PRN (19:45)
[2019-04-21] MEDS ORDERED: NOREPINEPHRINE BITARTRATE 8 MG in D5W 492 ML IV SCH (20:00)
[2019-04-21 20:06] LABS: BASO # 0.1 10^3/uL (0.0-0.2); BASO % 0.7 % (0.0-1.0); EOS % 9.4 % (0.0-3.0); HEMATOCRIT 32.2 % (42.0-52.0); HEMOGLOBIN 10.4 g/dl (13.5-17.5); LYMPH # 1.5 10^3/uL (1.5-5.0); LYMPH % 14.9 % (24.0-44.0); MEAN CORPUSCULAR HEMOGLOBIN 31.8 pg (27.0-33.0); MEAN CORPUSCULAR HGB CONC 32.3 g/dl (32.0-36.5); MEAN CORPUSCULAR VOLUME 98.5 fl (80.0-96.0); MONO # 0.7 10^3/uL (0.0-0.8); MONO % 6.6 % (0.0-5.0); NEUTROPHILS # 6.9 10^3/uL (1.5-8.5); NEUTROPHILS % 67.9 % (36.0-66.0); PLATELET COUNT, AUTOMATED 282 10^3/uL (150-450); RED BLOOD COUNT 3.27 10^6/uL (4.30-6.10); WHITE BLOOD COUNT 10.2 10^3/uL (4.0-10.0)
[2019-04-21] MEDS ORDERED: DIGOXIN INJ 0.5 MG/2 ML AMP (J1160) IV STA (20:08)
[2019-04-21 20:31] LABS: ALBUMIN 3.1 GM/DL (3.2-5.2); BILIRUBIN,TOTAL 0.2 MG/DL (0.2-1.0); CALCIUM LEVEL 8.1 MG/DL (8.8-10.2); CREATININE FOR GFR 2.18 MG/DL (0.70-1.30); GLOMERULAR FILTRATION RATE 31.3 (>42); MAGNESIUM LEVEL 2.7 MG/DL (1.8-2.4); POTASSIUM SERUM 4.1 MEQ/L (3.5-5.1); TOTAL PROTEIN 6.2 GM/DL (6.4-8.2)
[2019-04-21] MEDS: DOCUSATE SODIUM 100 MG CAP PO SCH (20:40)
[2019-04-21] MEDS ORDERED: HEPARIN SOD (PORCINE) 5000 UNITS/ML VIAL IV PRN ×2 (21:00→21:30)
[2019-04-21] MEDS ORDERED: HumaLOG INSULIN (NovoLOG) PER UNIT SC SCH (21:00)
--- NOTE | 2019-04-21 21:22 | HPEPDOC ---
[facility] Medical History & Physical Date of Admission Apr 21, 2019 Date of Service: Apr 21, 2019 History and Physical CHIEF COMPLAINT: [AFIB WITH RVR ] HISTORY OF PRESENT ILLNESS: [This is a 78 yo male with pmhx of afib s/p ablation on 325mg aspirin and BB, who was transferred for [place] for afib with rvr and hypotension (shock) requiring levophed after 1L of ivf. Patient said he went to [place] because he checked his HR at home at it was 120 so he went to the ED there. He denied fever, chills, chest pain, sob. He said he noticed that he started coughing today with some clear sputum. ] PAST MEDICAL HISTORY: 1. afib s/p ablation 2. CHF unsure of EF 3. Lung CA - s/p chemo , was receiving immunotherapy until few month ago when his cr got worse 4. HLD 5. 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 HOME MEDICATIONS: Please see below. LABORATORY DATA: See below. MICROBIOLOGY: Please see below. ROS - all 10 point review of system is negative except for whats listed in HPI Physical exam Gen: NAD, healthy appearing , HEENT: normocephalic, atraumatic, no discharge from ears or nose, no oropharyngeal erythema or exudate, neck is supple, no lymphadenopathy, trachea midline CVS: irreg tachycardic, normal S1n S2, no murmur, rubs, or gallops, no edema, no jvd Resp: LCTAB except for decreased breath sound in right lower lung field, no rhonchi, wheezes or crackles Abd : soft nontender, normal bowel sounds, no rebound tenderness or guarding MSK: no swelling, full range of motion, strength 5/5 Neuro: AOAx3, no confusion, no focal deficit Psych: normal mood and affect, good judgment Assessment and plan afib with rvr -received 10mg of iv cardizem at [place] which dropped his bp too much - titrate levophed off -Spoke with Dr. Garay who rec to give digoxin 0.25mcg now and again at 6hrs later -Dr. Garay will see patient in AM - hold 325mg of aspirin - for now -start heparin drip - hold BB and CCB - f/u echo -c/w amiodarone in AM Shock not quite shock because patient only received 1 L of ivf due to hx of chf ( unknown ef) titrate off levophed c/w gentle hydration hold bp meds for now ?PNA (CAP) was given ceftriaxone and azithromycin at [place] change azithromycin to doxy for risk of qtc prolongation c/w cetriaxone -( no reaction ) f/u sputum gs and cx f/u resp panel f/.u procal cxr pending DM2 hold po meds start ISS - patient is very brittle said the last time he received 5 units of insulin for bs >400, it dropped his blood sugar to 50 ISS -very mild dose hypogylcemic protocol f/u hba1c htn//chf hold bp meds f/u echo Hld c/w home med ckd stage 3-4 c/w to monitor f/u blood work dvt ppx Full code, from home , no svc Vital Signs Vital Signs Date Time Temp Pulse Resp B/P (MAP) Pulse Ox O2 Delivery O2 Flow Rate FiO2 04/21/19 18:45 78/49 04/21/19 18:00 118 92 04/20/19 17:34 98.4 16 Home Medications Scheduled Amiodarone HCl (Amiodarone HCl) 200 Mg Tablet, 200 MG PO DAILY Aspirin (Aspirin) 325 Mg Tab, 325 MG PO DAILY Azithromycin (Azithromycin) 500 Mg Vial, 500 MG IV ASDIRECTED RECEIVED AT [facility] Carvedilol (Coreg) 3.125 Mg Tablet, 3.125 MG PO BID Ceftriaxone in Is-Osm Dextrose (Ceftriaxone 1 gm-D5w Bag) 1 Gm/50 Ml Piggyback, 1 GRAM IV ASDIRECTED RECEIVED AT [facility] Diltiazem HCl (Diltiazem HCl) 5 Mg/1 Ml Vial, 10 MG IV ASDIRECTED RECEIVED AT [facility] Ferrous Sulfate (Ferrous Sulfate) 325 Mg Tablet, 325 MG PO DAILY Furosemide (Furosemide) 40 Mg Tablet, 40 MG PO DAILY Glimepiride (Glimepiride) 4 Mg Tab, 4 MG PO DAILY Loratadine (Loratadine) 10 Mg Tablet, 10 MG PO DAILY Norepinephrine Bitartrate (Norepinephrine Bitartrate) 1 Mg/1 Ml Ampul, 5 MCG IV ASDIRECTED RECEIVED AT [facility] - 18.8ML/HOUR Scheduled PRN Acetaminophen (Acetaminophen) 325 Mg Tablet, 650 MG PO Q4H PRN for PAIN Allergies Coded Allergies: Penicillins (Verified Allergy, Mild, RASH, 03/08/19) A-FIB/CHADSVASC A-FIB History Current/History of A-Fib/PAF?: Yes Current PO Anticoag Therapy: Yes Age/Risk Factor Scoring CHADSVASC: CHADSVASC Response (Comments) Value Age Risk Factor Age >/= 75 years old 2 Gender Risk Factor Male 0 Hx of CHF Yes 1 Hx of HTN Yes 1 Hx of Stroke/TIA/or VTE No 0 Hx of Diabetes Yes 1 Hx of Vascular Disease No 0 Total 5 Treatment Treatment ordered: Heparin IV bridge Therapy ELZBIETA DOMINGUEZ MD Apr 21, 2019 19:44
[2019-04-21] MEDS: NS 1,000 ML IV SCH (21:42)
[2019-04-21] MEDS ORDERED: HEPARIN SOD (PORCINE) 5000 UNITS/ML VIAL SC SCH (22:00)
[2019-04-21] MEDS: HEPARIN DRIP 25,000 UNITS in IV 1 EA IV SCH (22:20)
[2019-04-21] MEDS: ACETAMINOPHEN TAB 650MG DOSE (2X325MG) PO PRN (22:34)
[2019-04-22] VITALS (19 sets, daily range): BP systolic 88–154; BP diastolic 49–89
[2019-04-22 04:56] LABS: HEMOGLOBIN 10.1 g/dl (13.5-17.5); MEAN CORPUSCULAR HEMOGLOBIN 32.6 pg (27.0-33.0); MEAN CORPUSCULAR HGB CONC 32.6 g/dl (32.0-36.5); PLATELET COUNT, AUTOMATED 242 10^3/uL (150-450); WHITE BLOOD COUNT 7.5 10^3/uL (4.0-10.0)
[2019-04-22 05:10] LABS: CALCIUM LEVEL 8.1 MG/DL (8.8-10.2); CREATININE FOR GFR 2.03 MG/DL (0.70-1.30); MAGNESIUM LEVEL 2.5 MG/DL (1.8-2.4); POTASSIUM SERUM 3.8 MEQ/L (3.5-5.1)
--- NOTE | 2019-04-22 08:04 | REP ---
CHEST, PORTABLE: AP portable view of the chest is performed and compared to prior PET/CT 04/11/[address] chest 11/10/2018. There is chronic interstitial prominence and scarring with right pleural thickening. The findings are stable. No definite superimposed acute infiltrate is seen. The heart is normal in size. There is calcification of the thoracic aorta. Multiple sternal wires and mediastinal clips are present. A right central venous catheter is again seen with the tip in the right atrium. IMPRESSION: Chronic changes. Electronically Signed by Ab Gruber MD 04/23/2019 05:43 P
[2019-04-22] MEDS: LORATADINE 10 MG TAB PO SCH (08:14)
[2019-04-22] MEDS: DOCUSATE SODIUM 100 MG CAP PO SCH ×2 (08:15→20:14)
[2019-04-22] MEDS: FERROUS SULFATE 325MG TAB PO SCH (08:15)
[2019-04-22] MEDS ORDERED: ASPIRIN 325 MG TAB PO SCH (09:00)
[2019-04-22] MEDS ORDERED: AMIODARONE 200 MG TAB (PACERONE) PO SCH (09:00)
[2019-04-22] MEDS ORDERED: DOXYCYCLINE HYCLATE 100 MG in D5W MINI-BAG PLUS 100 ML IV SCH (09:00)
--- NOTE | 2019-04-22 10:18 | IPNPDOC ---
Subjective Date Seen The patient was seen on 04/22/19. Subjective Chief Complaint/HPI Patient comfortable sitting in bed, offers no new complaints. Still has cough but no shortness of breath General: Denies: ROS Unobtainable, Chills, Night Sweats, Fatigue, Malaise, Normal Appetite, Other Symptoms Skin: Denies: Rash, Lesions, Jaundice, Bruising, Itching, Dry, Breakdown, Nail Changes, Other Pulmonary: Reports: Cough Cardiovascular: Denies: Chest Pain, Palpitations, Orthopnea, Paroxysmal Noc. Dyspnea, Edema, Lt Headedness, Other Symptoms Gastrointestinal: Denies: Nausea, Vomiting, Abdominal Pain, Diarrhea, Constipation, Melena, Hematochezia, Other Symptoms Musculoskeletal: Denies: Neck Pain, Back Pain, Shoulder Pain, Arm Pain, Hand Pain, Leg Pain, Foot Pain, Joint Pain, Muscle Pain, Spasms, Other Symptoms Neurological: Denies: Weakness, Numbness, Incoordination, Change in speech, Confusion, Seizures, Other Symptoms Objective Physical Examination General Exam: Positive: Alert, Cooperative Eye Exam: Positive: PERRLA, Conjunctiva & lids normal ENT Exam: Positive: Atraumatic, Mucous membr. moist/pink Neck Exam: Positive: Supple Chest Exam: Positive: Other (crackles at the right side) Heart Exam: Positive: Rate Normal, Irregular Rhythm Telemetry: Positive: Atrial fibrillation Abdomen Exam: Positive: Normal bowel sounds, Soft Extremity Exam: Positive: Normal pulses Skin Exam: Positive: Nl turgor and temperature Neuro Exam: Positive: Strength at 5/5 X4 ext, Sensation Intact Assessment /Plan Problems (1) Malignant neoplasm of lower lobe, left bronchus or lung Status: Acute (2) Afib Status: Acute Plan/VTE VTE Prophylaxis Ordered?: Yes VS, I&O, 24H, [facility] Vital Signs/I&O Vital Signs Date Time Temp Pulse Resp B/P (MAP) Pulse Ox O2 Delivery O2 Flow Rate FiO2 04/22/19 09:00 63 132/60 (84) 99 04/22/19 08:00 97.0 16 I&O- Last 24 Hours up to 6 AM 04/22/19 06:00 Intake Total 1030.5 ml Output Total 550 ml Balance 480.5 ml Laboratory Data 24H LABS Laboratory Tests 2 04/21/19 19:56: Immature Granulocyte % (Auto) 0.5, White Blood Count 10.2H, Red Blood Count 3.27L, Hemoglobin 10.4L, Hematocrit 32.2L, Mean Corpuscular Volume 98.5H, Mean Corpuscular Hemoglobin 31.8, Mean Corpuscular Hemoglobin Concent 32.3, Red Cell Distribution Width 15.3H, Platelet Count 282, Neutrophils (%) (Auto) 67.9H, Lymphocytes (%) (Auto) 14.9L, Monocytes (%) (Auto) 6.6H, Eosinophils (%) (Auto) 9.4H, Basophils (%) (Auto) 0.7, Neutrophils # (Auto) 6.9, Lymphocytes # (Auto) 1.5, Monocytes # (Auto) 0.7, Eosinophils # (Auto) 1.0H, Basophils # (Auto) 0.1, Nucleated Red Blood Cells % (auto) 0.0, Anion Gap 7L, Glomerular Filtration Rate 31.3L, Blood Urea Nitrogen 74H, Creatinine 2.18H, Sodium Level 141, Potassium Level 4.1, Chloride Level 108H, Carbon Dioxide Level 26, Calcium Level 8.1L, Aspartate Amino Transf (AST/SGOT) 13, Alanine Aminotransferase (ALT/SGPT) 16, Alkaline Phosphatase 69, Total Bilirubin 0.2, Total Protein 6.2L, Albumin 3.1L, Magnesium Level 2.7H, Albumin/Globulin Ratio 1.00 04/21/19 21:34: Activated Partial Thromboplast Time 28.5 04/21/19 21:37: Bedside Glucose (Misc Panel) 327H 04/22/19 04:04: Nucleated Red Blood Cells % (auto) 0.0, Anion Gap 5L, Glomerular Filtration Rate 34.0L, Blood Urea Nitrogen 74H, Creatinine 2.03H, Sodium Level 143, Potassium Level 3.8, Chloride Level 113H, Carbon Dioxide Level 25, Calcium Level 8.1L, Magnesium Level 2.5H, Activated Partial Thromboplast Time 78.4H 04/22/19 07:45: Bedside Glucose (Misc Panel) 89 CBC/BMP Laboratory Tests 04/21/19 19:56 Red Blood Count 3.27 L, Mean Corpuscular Volume 98.5 H, Mean Corpuscular Hemoglobin 31.8, Mean Corpuscular Hemoglobin Concent 32.3, Red Cell Distribution Width 15.3 H, Neutrophils (%) (Auto) 67.9 H, Lymphocytes (%) (Auto) 14.9 L, Monocytes (%) (Auto) 6.6 H, Eosinophils (%) (Auto) 9.4 H, Basophils (%) (Auto) 0.7, Neutrophils # (Auto) 6.9, Lymphocytes # (Auto) 1.5, Monocytes # (Auto) 0.7, Eosinophils # (Auto) 1.0 H, Basophils # (Auto) 0.1, Calcium Level 8.1 L, Aspartate Amino Transf (AST/SGOT) 13, Alanine Aminotransferase (ALT/SGPT) 16, Alkaline Phosphatase 69, Total Bilirubin 0.2, Total Protein 6.2 L, Albumin 3.1 L 04/22/19 04:04 Red Blood Count 3.10 L, Mean Corpuscular Volume 100.0 H, Mean Corpuscular Hemoglobin 32.6, Mean Corpuscular Hemoglobin Concent 32.6, Red Cell Distribution Width 15.3 H, Calcium Level 8.1 L FAB ROLLE MD Apr 22, 2019 10:18
--- NOTE | 2019-04-22 10:27 | IPNPDOC ---
Subjective Date Seen The patient was seen on 04/22/19. Subjective Chief Complaint/HPI Patient is comfortable offers no new complaints except cough General: Denies: ROS Unobtainable, Chills, Night Sweats, Fatigue, Malaise, Normal Appetite, Other Symptoms Constitutional: Denies: Chills, Fever, Night Sweats Skin: Denies: Rash, Lesions, Jaundice, Bruising, Itching, Dry, Breakdown, Nail Changes, Other Pulmonary: Reports: Cough Cardiovascular: Denies: Chest Pain, Palpitations, Orthopnea, Paroxysmal Noc. Dyspnea, Edema, Lt Headedness, Other Symptoms Gastrointestinal: Denies: Nausea, Vomiting, Abdominal Pain, Diarrhea, Constipation, Melena, Hematochezia, Other Symptoms Musculoskeletal: Denies: Neck Pain, Back Pain, Shoulder Pain, Arm Pain, Hand Pain, Leg Pain, Foot Pain, Joint Pain, Muscle Pain, Spasms, Other Symptoms Neurological: Denies: Weakness, Numbness, Incoordination, Change in speech, Confusion, Seizures, Other Symptoms Objective Physical Examination ENT Exam: Positive: Atraumatic, Mucous membr. moist/pink Neck Exam: Positive: Supple Chest Exam: Positive: Other (crackles at the right side) Heart Exam: Positive: Rate Normal, Irregular Rhythm Telemetry: Positive: Atrial fibrillation Abdomen Exam: Positive: Normal bowel sounds, Soft Extremity Exam: Positive: Normal pulses Skin Exam: Positive: Nl turgor and temperature Neuro Exam: Positive: Strength at 5/5 X4 ext, Sensation Intact Assessment /Plan Problems (1) Afib Status: Acute Problem Text: Patient received Cardizem in [facility] which did decrease the heart rate, but also caused hypotension Patient was started on Levophed for hypotension Levophed has been weaned off Dr. Garay will be consulting on patient Digoxin has been started to control heart rate Heparin for anticoagulation Further recommendations as per cardiology (2) Pneumonia Status: Acute Problem Text: Pneumonia has ruled out As chest x-ray does not show any infiltrate. Is afebrile and clinical exam is normal except crackles at right base will order pro-calcitonin CBC and BMP essentially normal. We'll DC the IV antibiotics Clinical observation CXR report:There is chronic interstitial prominence and scarring with right pleural thickening. The findings are stable. No definite superimposed acute infiltrate is seen. The heart is normal in size. There is calcification of the thoracic aorta. Multiple sternal wires and mediastinal clips are present. A right central venous catheter is again seen with the tip in the right atrium. (3) Malignant neoplasm of lower lobe, left bronchus or lung Status: Acute (4) Hypotension Status: Resolved Problem Text: Hypotension secondary to Cardizem Patient received Levophed for hypotension Levophed has been weaned off Patient's vital signs are stable Possibly will be transferred to PCU today Plan/VTE VTE Prophylaxis Ordered?: Yes VS, I&O, 24H, Fishbone Vital Signs/I&O Vital Signs Date Time Temp Pulse Resp B/P (MAP) Pulse Ox O2 Delivery O2 Flow Rate FiO2 04/22/19 09:00 63 132/60 (84) 99 04/22/19 08:00 97.0 16 I&O- Last 24 Hours up to 6 AM 04/22/19 06:00 Intake Total 1030.5 ml Output Total 550 ml Balance 480.5 ml Laboratory Data 24H LABS Laboratory Tests 2 04/21/19 19:56: Immature Granulocyte % (Auto) 0.5, White Blood Count 10.2H, Red Blood Count 3.27L, Hemoglobin 10.4L, Hematocrit 32.2L, Mean Corpuscular Volume 98.5H, Mean Corpuscular Hemoglobin 31.8, Mean Corpuscular Hemoglobin Concent 32.3, Red Cell Distribution Width 15.3H, Platelet Count 282, Neutrophils (%) (Auto) 67.9H, Lymphocytes (%) (Auto) 14.9L, Monocytes (%) (Auto) 6.6H, Eosinophils (%) (Auto) 9.4H, Basophils (%) (Auto) 0.7, Neutrophils # (Auto) 6.9, Lymphocytes # (Auto) 1.5, Monocytes # (Auto) 0.7, Eosinophils # (Auto) 1.0H, Basophils # (Auto) 0.1, Nucleated Red Blood Cells % (auto) 0.0, Anion Gap 7L, Glomerular Filtration Rate 31.3L, Blood Urea Nitrogen 74H, Creatinine 2.18H, Sodium Level 141, Potassium Level 4.1, Chloride Level 108H, Carbon Dioxide Level 26, Calcium Level 8.1L, Aspartate Amino Transf (AST/SGOT) 13, Alanine Aminotransferase (ALT/SGPT) 16, Alkaline Phosphatase 69, Total Bilirubin 0.2, Total Protein 6.2L, Albumin 3.1L, Magnesium Level 2.7H, Albumin/Globulin Ratio 1.00 04/21/19 21:34: Activated Partial Thromboplast Time 28.5 04/21/19 21:37: Bedside Glucose (Misc Panel) 327H 04/22/19 04:04: Nucleated Red Blood Cells % (auto) 0.0, Anion Gap 5L, Glomerular Filtration Rate 34.0L, Blood Urea Nitrogen 74H, Creatinine 2.03H, Sodium Level 143, Potassium Level 3.8, Chloride Level 113H, Carbon Dioxide Level 25, Calcium Level 8.1L, Magnesium Level 2.5H, Activated Partial Thromboplast Time 78.4H 04/22/19 07:45: Bedside Glucose (Misc Panel) 89 04/22/19 09:48: CBC/BMP Laboratory Tests 04/21/19 19:56 Red Blood Count 3.27 L, Mean Corpuscular Volume 98.5 H, Mean Corpuscular Hemoglobin 31.8, Mean Corpuscular Hemoglobin Concent 32.3, Red Cell Distribution Width 15.3 H, Neutrophils (%) (Auto) 67.9 H, Lymphocytes (%) (Auto) 14.9 L, Monocytes (%) (Auto) 6.6 H, Eosinophils (%) (Auto) 9.4 H, Basophils (%) (Auto) 0.7, Neutrophils # (Auto) 6.9, Lymphocytes # (Auto) 1.5, Monocytes # (Auto) 0.7, Eosinophils # (Auto) 1.0 H, Basophils # (Auto) 0.1, Calcium Level 8.1 L, Aspartate Amino Transf (AST/SGOT) 13, Alanine Aminotransferase (ALT/SGPT) 16, Alkaline Phosphatase 69, Total Bilirubin 0.2, Total Protein 6.2 L, Albumin 3.1 L 04/22/19 04:04 Red Blood Count 3.10 L, Mean Corpuscular Volume 100.0 H, Mean Corpuscular Hemoglobin 32.6, Mean Corpuscular Hemoglobin Concent 32.6, Red Cell Distribution Width 15.3 H, Calcium Level 8.1 L FAB ROLLE MD Apr 22, 2019 10:27
[2019-04-22] MEDS ORDERED: DIGOXIN 0.25 MG TAB PO ONE (11:00)
[2019-04-22] MEDS: NS 1,000 ML IV SCH (11:30)
[2019-04-22] MEDS ORDERED: cefTRIAXone SOD 1 GM in D5W MINI-BAG PLUS 50 ML IV SCH (14:00)
--- NOTE | 2019-04-22 15:52 | ECGEPIP ---
[facility] Test Date: 2019-04-22 Pat Name: BETH DE JESUS Department: Room: [place] [address] Gender: Male Management Scientist: ANNIKA : 1940 Requested By: Abeba Garay Order Number: [id number] Reading MD: Bassem Garcia Measurements Intervals [place] Rate: 62 P: -61 NC: 187 QRS: -36 QRSD: 126 T: 159 QT: 430 QTc: 438 Interpretive Statements Regular supraventricular rhythm (sinus suspected when gain adjusted but artifact limit limits interpretation) MARKED LEFT AXIS DEVIATION LEFT BUNDLE BRANCH BLOCK Nonspecific T wave abnormality Comparison tracing not on file Electronically Signed on 04-22-2019 15:52:08 EDT by Bassem Garcia
--- NOTE | 2019-04-22 17:10 | IPN ---
DATE: 04/22/2019 REFERRING PHYSICIAN: Dr. Yuen INDICATION: Atrial flutter. HISTORY OF PRESENT ILLNESS: Mr. Sorto is previously unknown to me. He is a 78-year-old man who has been followed by Dr. Maldonado and also numerous additional physicians for his multiple medical problems. He presented to [facility] after he was so instructed by Dr. Maldonado. He does carry a history of atrial fibrillation and reportedly underwent ablation in November or December of this year in [facility] in [place]. He was then discharged home on amiodarone but not on anticoagulation. Yesterday he detected by his own pulse oximeter that his heart rate was tachycardic in approximately 130 range. He was instructed to go to [facility] Emergency Room, where on presentation it was felt that he was in atrial flutter or fibrillation. Based on somewhat limited records, he was given Cardizem, after which he became very hypotensive. He was started on Levophed and transferred to our facility. On presentation here, he was found to be still tachycardic with heart rate around 110-130 beats per minute. I do not have any ECG available for review, but based on telemetry tracing it appears that it is most likely atrial flutter with 2:1 conduction. He was given a single dose of digoxin 0.25 mg that led to conversion to sinus rhythm, and he was successfully weaned off Levophed overnight. This morning, his atrial flutter relapsed, and when I interviewed him his heart rate was about 130 beats per minute. The patient does not have any good understanding of his condition. He believes that in November or December when he was transferred to [place], the initial plan was to proceed with pacemaker placement, but apparently instead ablation was performed. He has not had any relapse since until yesterday to the best of his understanding, and he monitors his pulse very frequently. He has not been anticoagulated and has been only on aspirin. It is not completely clear why. He denies any history of bleeding problems other than the easy bruising. Currently at bedside he feels comfortable. His heart rate is 130 beats per minute, but he has no awareness of this. He denies any change in his chronic dyspnea and denies any chest discomfort. PAST MEDICAL HISTORY: 1. Atrial fibrillation as above. 2. History of congestive heart failure. We do not have any information regarding his ejection fraction. 3. Coronary artery disease, status post remote history of bypass surgery approximately 8 years ago. To the best of the patient's understanding and recollection, he has not had any ischemic symptoms since. 3. Chronic obstructive pulmonary disease (COPD). 4. Lung cancer, stage IV. Has been receiving Keytruda with good response, but apparently approximately 2 months ago the treatment was stopped due to development of renal failure. 5. Hypertension. 6. Dyslipidemia. 7. Renal insufficiency. 8. Diabetes. PAST SURGICAL HISTORY: 1. The patient underwent resection of right lower lobe as a young adult due to possibly tuberculosis or some form of fungal infection. 2. Coronary artery bypass surgery. 3. Port-A-Cath placement. SOCIAL HISTORY: The patient continues to be an active smoker. Denies any alcohol use. FAMILY HISTORY: No longer relevant considering his advanced age. REVIEW OF SYSTEMS: He denies any recent fever, chills, nausea, vomiting, or diarrhea. No significant changes in his weight. No chest pain. No sensation of palpitations. No near/syncope. No history of stroke. No history of gastrointestinal bleeding. The rest of review of system is negative. PHYSICAL EXAMINATION: Mr. Sorto is an elderly, slim man. He does not appear to be in any distress. He does appear chronically ill. Blood pressure 132/60, heart rate currently about 130 beats per minute but throughout the night most of the time he was in sinus rhythm with heart rate in 60s. He is afebrile. Saturation is 99% on 2 liters of oxygen. He weighs 58.3 kg. His jugular venous pulse (JVP) is not high. I do not appreciate any carotid bruit. Lungs are reasonably clear to auscultation. There are somewhat diminished breath sounds over right base. There is a very large right posterior thoracotomy scar . The heart exam reveals regular tachycardia. Very muffled heart sounds. I do not appreciate any distinct murmur, gallop, or rub. Abdomen is soft without tenderness. No hepatosplenomegaly. Extremities are free of edema. Peripheral pulses are palpable but not of a good quality. Neurologically, I do not appreciate any focal deficits. OUTPATIENT MEDICATIONS: - amiodarone 200 mg a day - aspirin 325 mg a day - Coreg 3.125 mg twice a day - iron sulfate 325 mg a day - furosemide 40 mg a day - glimepiride 4 mg a day - loratadine 10 mg a day LABORATORY DATA: As of this morning, sodium 143, potassium 3.8, BUN 74, creatinine 2.0 for GFR 34 and glucose 149,. His CBC reveals hemoglobin 10, hematocrit 31, platelet count 242,000. Chest x-ray reveals probably right pleural effusion with some collapse. It was interpreted as possible infiltrate, even though I am doubtful. I do not appreciate any obvious cardiomegaly. No pleural effusion. There is some vascular distribution and evidence for a prior sternotomy. No ECG performed in our facility as of yet. ASSESSMENT AND PLAN: Mr. Sorto is an elderly man who has established coronary artery disease and most likely paroxysmal atrial flutter or fibrillation. His ECG from [facility] represents most likely atypical atrial flutter with variable atrioventricular (AV) conduction and underlying atypical left bundle branch block. He is relatively asymptomatic. There are several issues. First of all, he has not been anticoagulated chronically. It is not clear to me as to why that should be the case. He denies any history of bleeding as such. He is currently on heparin, and I suggest to continue heparin at least one more day until we have sufficient reassurance that he will not need a pacemaker placement. Then, depending on his clinical course, we will have to decide how to replace the aspirin. Most likely we will choose one of the newer anticoagulants. As far as the management of atrial flutter is concerned, I am going to obtain an ECG to indeed confirm that that is what we are dealing with. He spent most of the night in sinus rhythm, and I am going to give him one more dose of digoxin 0.25 mg for total 0.5 mg. If it does not help him stay in sinus rhythm, I am going to advance the dose of amiodarone to 400 mg daily. If the blood pressure and heart rate remain low, we can discontinue the Coreg, which is almost placebo-like dose regardless. I am requesting records from [facility] in [place] to get more information about his prior evaluation. The remaining problems are being handled by primary team. I will follow the patient with you. CARMEN
[2019-04-22] MEDS: AMIODARONE 200 MG TAB (PACERONE) PO SCH (20:14)
[2019-04-22] MEDS: HEPARIN DRIP 25,000 UNITS in IV 1 EA IV SCH (21:39)
[2019-04-22] MEDS: ACETAMINOPHEN TAB 650MG DOSE (2X325MG) PO PRN (21:45)
[2019-04-23] MEDS: NS 1,000 ML IV SCH ×2 (02:29→15:57)
[2019-04-23 06:00] VITALS: BP 125/47
[2019-04-23 06:17] LABS: BASO % 0.5 % (0.0-1.0); EOS # 1.3 10^3/uL (0.0-0.5); EOS % 16.5 % (0.0-3.0); HEMATOCRIT 30.1 % (42.0-52.0); HEMOGLOBIN 9.8 g/dl (13.5-17.5); LYMPH % 25.3 % (24.0-44.0); MEAN CORPUSCULAR HGB CONC 32.6 g/dl (32.0-36.5); MEAN CORPUSCULAR VOLUME 101.3 fl (80.0-96.0); MONO # 0.5 10^3/uL (0.0-0.8); NEUTROPHILS # 3.9 10^3/uL (1.5-8.5); NEUTROPHILS % 50.4 % (36.0-66.0); PLATELET COUNT, AUTOMATED 220 10^3/uL (150-450); RED BLOOD COUNT 2.97 10^6/uL (4.30-6.10); WHITE BLOOD COUNT 7.7 10^3/uL (4.0-10.0)
[2019-04-23 06:46] LABS: ALBUMIN 2.6 GM/DL (3.2-5.2); BILIRUBIN,TOTAL 0.4 MG/DL (0.2-1.0); CALCIUM LEVEL 8.1 MG/DL (8.8-10.2); CREATININE FOR GFR 1.59 MG/DL (0.70-1.30); GLOMERULAR FILTRATION RATE 45.1 (>42); POTASSIUM SERUM 4.3 MEQ/L (3.5-5.1); TOTAL PROTEIN 5.7 GM/DL (6.4-8.2)
[2019-04-23] MEDS: FERROUS SULFATE 325MG TAB PO SCH (08:36)
[2019-04-23] MEDS: DOCUSATE SODIUM 100 MG CAP PO SCH ×2 (08:36→21:02)
[2019-04-23] MEDS: LORATADINE 10 MG TAB PO SCH (08:36)
[2019-04-23] MEDS: AMIODARONE 200 MG TAB (PACERONE) PO SCH ×2 (08:37→21:02)
--- NOTE | 2019-04-23 11:12 | IPNPDOC ---
Subjective Date Seen The patient was seen on 04/23/19. Subjective Chief Complaint/HPI Patient comfortable offers no new complaints at the present time General: Denies: ROS Unobtainable, Chills, Night Sweats, Fatigue, Malaise, Normal Appetite, Other Symptoms Constitutional: Denies: Chills, Fever, Malaise, Night Sweats, Weakness, Fatigue, Weight Loss, Lethargy, Other Pulmonary: Denies: Dyspnea, Cough, Pleuritic Chest Pain, Other Symptoms Cardiovascular: Denies: Chest Pain, Palpitations, Orthopnea, Paroxysmal Noc. Dyspnea, Edema, Lt Headedness, Other Symptoms Gastrointestinal: Denies: Nausea, Vomiting, Abdominal Pain, Diarrhea, Constipation, Melena, Hematochezia, Other Symptoms Musculoskeletal: Denies: Neck Pain, Back Pain, Shoulder Pain, Arm Pain, Hand Pain, Leg Pain, Foot Pain, Joint Pain, Muscle Pain, Spasms, Other Symptoms Neurological: Denies: Weakness, Numbness, Incoordination, Change in speech, Confusion, Seizures, Other Symptoms Objective Physical Examination General Exam: Positive: Alert, Cooperative Eye Exam: Positive: PERRLA, Conjunctiva & lids normal ENT Exam: Positive: Atraumatic, Mucous membr. moist/pink Neck Exam: Positive: Supple Chest Exam: Positive: Other (crackles at the right side) Heart Exam: Positive: Rate Normal, Irregular Rhythm Telemetry: Positive: Atrial fibrillation Abdomen Exam: Positive: Normal bowel sounds, Soft Extremity Exam: Positive: Normal pulses Skin Exam: Positive: Nl turgor and temperature Neuro Exam: Positive: Strength at 5/5 X4 ext, Sensation Intact Assessment /Plan Problems (1) Afib Status: Acute Problem Text: Patient received Cardizem in [facility] which did decrease the heart rate, but also caused hypotension Patient was started on Levophed for hypotension Levophed has been weaned off Cardizem consult appreciated Digoxin isn't therapeutic level as ordered by cardiology Any heparin for anticoagulation later on to be switched to novel anticoagulants Further recommendations as per cardiology (2) Pneumonia Status: Resolved Problem Text: Pneumonia has ruled out As chest x-ray does not show any infiltrate. Is afebrile and clinical exam is normal except crackles at right base will order pro-calcitonin CBC and BMP essentially normal. We'll DC the IV antibiotics Clinical observation Repeat pro-calcitonin ordered to confirm absence of infection CXR report:There is chronic interstitial prominence and scarring with right pleural thickening. The findings are stable. No definite superimposed acute infiltrate is seen. The heart is normal in size. There is calcification of the thoracic aorta. Multiple sternal wires and mediastinal clips are present. A right central venous catheter is again seen with the tip in the right atrium. (3) Malignant neoplasm of lower lobe, left bronchus or lung Status: Acute Problem Text: Further follow-up with PCP (4) Hypotension Status: Resolved Problem Text: Hypotension secondary to Cardizem Patient received Levophed for hypotension Levophed has been weaned off Patient's vital signs are stable Possibly will be transferred to PCU today Plan/VTE VTE Prophylaxis Ordered?: Yes VS, I&O, 24H, Fishbone Vital Signs/I&O Vital Signs Date Time Temp Pulse Resp B/P (MAP) Pulse Ox O2 Delivery O2 Flow Rate FiO2 04/23/19 06:00 98.1 62 16 125/47 (73) 99 I&O- Last 24 Hours up to 6 AM 04/23/19 06:00 Intake Total 3126 ml Output Total 1475 ml Balance 1651 ml Laboratory Data 24H LABS Laboratory Tests 2 04/22/19 11:32: Bedside Glucose (Misc Panel) 213H 04/22/19 17:35: Bedside Glucose (Misc Panel) 120H 04/22/19 21:47: Bedside Glucose (Misc Panel) 150H 04/23/19 02:35: Bedside Glucose (Misc Panel) 56L 04/23/19 02:56: Bedside Glucose (Misc Panel) 73L 04/23/19 05:50: Immature Granulocyte % (Auto) 0.3, White Blood Count 7.7, Red Blood Count 2.97L, Hemoglobin 9.8L, Hematocrit 30.1L, Mean Corpuscular Volume 101.3H, Mean Corpuscular Hemoglobin 33.0, Mean Corpuscular Hemoglobin Concent 32.6, Red Cell Distribution Width 15.7H, Platelet Count 220, Neutrophils (%) (Auto) 50.4, Lymphocytes (%) (Auto) 25.3, Monocytes (%) (Auto) 7.0H, Eosinophils (%) (Auto) 16.5H, Basophils (%) (Auto) 0.5, Neutrophils # (Auto) 3.9, Lymphocytes # (Auto) 2.0, Monocytes # (Auto) 0.5, Eosinophils # (Auto) 1.3H, Basophils # (Auto) 0.0, Nucleated Red Blood Cells % (auto) 0.0, Activated Partial Thromboplast Time 95.4H, Anion Gap 4L, Glomerular Filtration Rate 45.1, Blood Urea Nitrogen 53H, Creatinine 1.59H, Sodium Level 144, Potassium Level 4.3, Chloride Level 115H, Carbon Dioxide Level 25, Calcium Level 8.1L, Aspartate Amino Transf (AST/SGOT) 17, Alanine Aminotransferase (ALT/SGPT) 22, Alkaline Phosphatase 58, Total B ilirubin 0.4#, Total Protein 5.7L, Albumin 2.6L, Albumin/Globulin Ratio 0.84L 04/23/19 06:08: Bedside Glucose (Misc Panel) 104 04/23/19 08:39: Digoxin Level 0.9 CBC/BMP Laboratory Tests 04/23/19 05:50 Red Blood Count 2.97 L, Mean Corpuscular Volume 101.3 H, Mean Corpuscular Hemoglobin 33.0, Mean Corpuscular Hemoglobin Concent 32.6, Red Cell Distribution Width 15.7 H, Neutrophils (%) (Auto) 50.4, Lymphocytes (%) (Auto) 25.3, Monocytes (%) (Auto) 7.0 H, Eosinophils (%) (Auto) 16.5 H, Basophils (%) (Auto) 0.5, Neutrophils # (Auto) 3.9, Lymphocytes # (Auto) 2.0, Monocytes # (Auto) 0.5, Eosinophils # (Auto) 1.3 H, Basophils # (Auto) 0.0, Calcium Level 8.1 L, Aspartate Amino Transf (AST/SGOT) 17, Alanine Aminotransferase (ALT/SGPT) 22, Alkaline Phosphatase 58, Total Bilirubin 0.4 #, Total Protein 5.7 L, Albumin 2.6 L FAB ROLLE MD Apr 23, 2019 11:12
[2019-04-23 14:00] VITALS: BP 147/81
--- NOTE | 2019-04-23 14:14 | IPN ---
DATE: 04/23/2019 Mr. Sorto is feeling better even though he still describes palpitations with activity. Denies significant dyspnea, chest pain, minimal palpitations. Vital signs: Blood pressure 125/47, heart rate has been consistently in 60s at rest with atrial flutter and 2:1 conduction, but gets tachycardia with ambulation. He is afebrile. Saturation is 99%. His fluid balance yesterday was positive. His weight has not been documented this morning as yet. He is alert and oriented, appropriate. I do not appreciate any jugular venous pulse (JVP) elevations. Lungs are reasonably clear to auscultation with the exception of right base. Heart exam reveals regular rhythm. I do not appreciate any gallop or rub. Abdomen is soft. No edema. Laboratories: Basic metabolic panel reveals sodium 144, potassium 4.3, BUN 53, creatinine 1.6, and glucose 109. CBC: Hemoglobin 9 and hematocrit 30 and platelet count 220,000. His PTT is therapeutic at 95. ASSESSMENT AND PLAN: Mr. Sorto is a 78-year-old man who has history of coronary artery disease and history of paroxysmal probably atrial flutter or fibrillation. I increased the dose of amiodarone and added just temporarily a small dose of digoxin. At this point, he has 2:1 conduction as long as he does not ambulate but gets tachycardia with activity. I do believe that this is actually acceptable at least short-term solution. I do not he can safely be cardioverted because he has not been anticoagulated. 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 The barrera question is that of anticoagulation. He was only on aspirin. We gave him heparin when in the hospital, but it is just a temporary solution. Consequently, I will switch him to anticoagulation. I chose Xarelto 50 mg daily as an option even though I certainly would not have any objections to Eliquis either. Provided his condition does not change by tomorrow and his heart rate states mostly controlled, I think he can be discharged home.
[2019-04-23] MEDS: RIVAROXABAN 15 MG TAB (XARELTO) PO SCH (18:13)
[2019-04-23 22:00] VITALS: BP 139/49
[2019-04-23] MEDS: ACETAMINOPHEN TAB 650MG DOSE (2X325MG) PO PRN (22:11)
[2019-04-24 06:00] VITALS: BP 147/64
[2019-04-24] MEDS: NS 1,000 ML IV SCH (06:28)
[2019-04-24 08:38] LABS: HEMATOCRIT 30.5 % (42.0-52.0); MEAN CORPUSCULAR HEMOGLOBIN 32.7 pg (27.0-33.0); MEAN CORPUSCULAR HGB CONC 32.8 g/dl (32.0-36.5); MEAN CORPUSCULAR VOLUME 99.7 fl (80.0-96.0); PLATELET COUNT, AUTOMATED 223 10^3/uL (150-450); RED BLOOD COUNT 3.06 10^6/uL (4.30-6.10); WHITE BLOOD COUNT 7.3 10^3/uL (4.0-10.0)
[2019-04-24] MEDS: FERROUS SULFATE 325MG TAB PO SCH (08:49)
[2019-04-24] MEDS: AMIODARONE 200 MG TAB (PACERONE) PO SCH (08:49)
[2019-04-24] MEDS: DOCUSATE SODIUM 100 MG CAP PO SCH (08:49)
[2019-04-24] MEDS: LORATADINE 10 MG TAB PO SCH (08:49)
[2019-04-24 09:04] LABS: CALCIUM LEVEL 8.4 MG/DL (8.8-10.2); CREATININE FOR GFR 1.5 MG/DL (0.70-1.30); GLOMERULAR FILTRATION RATE 48.2 (>42); POTASSIUM SERUM 4.7 MEQ/L (3.5-5.1)
[2019-04-24] MEDS ORDERED: XARE15TA PO (11:15)
[2019-04-24] MEDS ORDERED: AMIO200T PO (11:15)
--- NOTE | 2019-04-24 11:52 | DS.PDOC ---
Discharge Summary General Date of Admission Apr 21, 2019 at 17:42 Date of Discharge 04/24/19 Attending Physician: FAB ROLLE MD Discharge Summary PROCEDURES PERFORMED DURING STAY: None. ADMITTING DIAGNOSES: 1. Atrial fibrillation, hypotension, lung cancer. DISCHARGE DIAGNOSES: 1. Atrial fibrillation, medication induced hypotension and lung malignancy. COMPLICATIONS/CHIEF COMPLAINT: AFIB. HISTORY OF PRESENT ILLNESS: This is a 78 yo male with pmhx of afib s/p ablation on 325mg aspirin and BB, who was transferred for [facility] for afib with rvr and hypotension (shock) requiring levophed after 1L of ivf. Patient said he went to [facility] because he checked his HR at home at it was 120 so he went to the ED there. He denied fever, chills, chest pain, sob. He said he noticed that he started coughing today with some clear sputum.. HOSPITAL COURSE: Patient was admitted from [facility] with diagnoses of atrial fibrillation Patient received Cardizem in [facility] which did decrease the heart rate, but also caused hypotension Patient was started on Levophed for hypotension Patient was transferred to our ICU where he had Levophed weaned off and patient was subsequently transferred to PCU Initially received the stated dose of digoxin to control the heart rate And heparin was started for anticoagulation Later on received followed up by cardiology and amiodarone was started dose was increased to 200 mg by mouth bid And also recommended to start Xarelto for anticoagulation on discharge She will be discharged home on the by mouth amiodarone and Xarelto and follow with his sole inker as soon as possible. His pneumonia was ruled out on admission in this hospital. Patient has a history of malignant neoplasm of left bronchus lower lobe and follows up with his PCP as an outpatient . DISCHARGE MEDICATIONS: Please see below. ALLERGIES: Please see below. PHYSICAL EXAMINATION ON DISCHARGE: VITAL SIGNS: Please see below. GENERAL: Awake, alert, oriented, in no apparent distress HEENT: PERRLA. Extraocular muscles intact NECK: Supple CARDIOVASCULAR EXAMINATION: S1, S2, regular RESPIRATORY EXAMINATION: Clear to A&P ABDOMINAL EXAMINATION: , Soft, nontender, bowel sounds present EXTREMITIES: No clubbing, cyanosis, edema SKIN: Within normal limits NEUROLOGICAL EXAMINATION: . No focal motor sensory deficit PSYCHIATRIC EXAMINATION: Within normal limits LABORATORY DATA: Please see below. IMAGING: Chest x-ray:CXR report:There is chronic interstitial prominence and scarring with right pleural thickening. The findings are stable. No definite superimposed acute infiltrate is seen. The heart is normal in size. There is calcification of the thoracic aorta. Multiple sternal wires and mediastinal clips are present. A right central venous catheter is again seen with the tip in the right atrium. PROGNOSIS: Good ACTIVITY: As tolerated. DIET: As tolerated DISCHARGE PLAN: Follow with the sole inker as an outpatient in one week DISPOSITION: . Home DISCHARGE INSTRUCTIONS: 1. Lower the sole inker in one week. ITEMS TO FOLLOWUP ON ON OUTPATIENT: 1. As above. DISCHARGE CONDITION: Stable. TIME SPENT ON DISCHARGE: 38 minutes. Vital Signs/I&Os Vital Signs Date Time Temp Pulse Resp B/P (MAP) Pulse Ox O2 Delivery O2 Flow Rate FiO2 04/24/19 06:00 98.7 63 16 147/64 (91) 98 I&O- Last 24 Hours up to 6 AM 04/24/19 06:00 Intake Total 2430 ml Output Total 1050 ml Balance 1380 ml Laboratory Data Labs 24H Laboratory Tests 2 04/23/19 11:52: Bedside Glucose (Misc Panel) 170H 04/23/19 17:01: Bedside Glucose (Misc Panel) 130H 04/23/19 20:21: Bedside Glucose (Misc Panel) 119H 04/23/19 21:11: Bedside Glucose (Misc Panel) 123H 04/24/19 03:36: Bedside Glucose (Misc Panel) 77L 04/24/19 07:55: Bedside Glucose (Misc Panel) 84 04/24/19 08:15: Nucleated Red Blood Cells % (auto) 0.0, Anion Gap 6L, Glomerular Filtration Rate 48.2, Blood Urea Nitrogen 37H, Creatinine 1.50H, Sodium Level 147H, Potassium Level 4.7, Chloride Level 119H, Carbon Dioxide Level 22, Calcium Level 8.4L 04/24/19 11:02: Bedside Glucose (Misc Panel) 179H CBC/BMP Laboratory Tests 04/24/19 08:15 Red Blood Count 3.06 L, Mean Corpuscular Volume 99.7 H, Mean Corpuscular Hemoglobin 32.7, Mean Corpuscular Hemoglobin Concent 32.8, Red Cell Distribution Width 15.8 H, Calcium Level 8.4 L FSBS Laboratory Tests Test 04/23/19 11:52 04/23/19 17:01 04/23/19 20:21 04/23/19 21:11 Range/Units Bedside Glucose (Misc Panel) 170 130 119 123 83-110 MG/DL Test 04/24/19 03:36 04/24/19 07:55 04/24/19 11:02 Range/Units Bedside Glucose (Misc Panel) 77 84 179 83-110 MG/DL Discharge Medications Scheduled Amiodarone HCl (Amiodarone HCl) 200 Mg Tablet, 200 MG PO BID Aspirin (Aspirin) 325 Mg Tab, 325 MG PO DAILY, (Reported) Ferrous Sulfate (Ferrous Sulfate) 325 Mg Tablet, 325 MG PO DAILY, (Reported) Furosemide (Furosemide) 40 Mg Tablet, 40 MG PO DAILY, (Reported) Glimepiride (Glimepiride) 4 Mg Tab, 4 MG PO DAILY, (Reported) Loratadine (Loratadine) 10 Mg Tablet, 10 MG PO DAILY, (Reported) Norepinephrine Bitartrate (Norepinephrine Bitartrate) 1 Mg/1 Ml Ampul, 5 MCG IV ASDIRECTED, (Reported) RECEIVED AT [facility] - 18.8ML/HOUR Rivaroxaban (Xarelto) 15 Mg Tablet, 15 MG PO DAILY@18 Allergies Coded Allergies: Penicillins (Verified Allergy, Mild, RASH, 03/08/19) FAB ROLLE MD Apr 24, 2019 11:52
[2019-04-24] MEDS ORDERED: SODIUM CHLORIDE 0.9% INJ 10 ML SYR IV PRN (12:15)
[2019-04-24 14:00] VITALS: BP 121/65
[2019-04-24] MEDS: RIVAROXABAN 15 MG TAB (XARELTO) PO SCH (17:01)
[2019-04-25] MEDS ORDERED: SODIUM CHLORIDE 0.9% INJ 10 ML SYR IV SCH (09:00)
[2019-07-27] MEDS ORDERED: IPRA0.00 NEB (13:28)
[2019-07-27] MEDS ORDERED: ARTH650T17 PO (13:28)
[2019-07-27] MEDS ORDERED: CARV3.12 PO (13:28)
[2019-07-27] MEDS ORDERED: K-TA10TA2 PO (13:28)
[2019-07-27] MEDS ORDERED: XANA0.25 PO (13:28)
== END 2019-04-24 17:14 | disposition home or self-care (01) | DRG 309 ==
LOC: M ED INP 17:42 → M ICU 18:10 → M MSPAV 04-22 20:24
PROVIDERS: ADMIT Internal Medicine; ATTEND Internal Medicine
DX: I48.0 Paroxysmal atrial fibrillation (principal); N18.4 Chronic kidney disease, stage 4 (severe); I13.0 Hypertensive heart and chronic kidney disease with heart failure and stage 1 through stage 4 chronic kidney disease, or unspecified chronic kidney disease; C34.32 Malignant neoplasm of lower lobe, left bronchus or lung; I50.9 Heart failure, unspecified; I95.9 Hypotension, unspecified; E78.5 Hyperlipidemia, unspecified; I48.4 Atypical atrial flutter; E11.22 Type 2 diabetes mellitus with diabetic chronic kidney disease; Z79.82 Long term (current) use of aspirin; Z79.84 Long term (current) use of oral hypoglycemic drugs; Z79.899 Other long term (current) drug therapy; Z88.0 Allergy status to penicillin; Z95.1 Presence of aortocoronary bypass graft; T46.1X5A Adverse effect of calcium-channel blockers, initial encounter

== ENCOUNTER → 2019-07-18 | Outpatient (CLI) | payer BC, MEDICARE ==
[~2019-07-18] MED LIST changes: +AZIT50VL IV; +CEFT1INJ4 IV; +GLIM4TAB3 PO; -GLIM4TAB5 PO; +XARE15TA PO; +[UNRECOGNIZED DRUG - CODE] IV; +[UNRECOGNIZED DRUG - CODE] IV
--- NOTE | 2019-07-18 18:10 | REP ---
PET/CT: History: Restaging left lower lung cancer. Non-small cell on chemotherapy. Comparisons: Comparison PET-CT studies are from April 11, 2019 and March 29, 2018. TECHNIQUE: 48 minutes following the intravenous injection of a 8.36 mCi dose of F-18 FDG, three-dimensional PET scintigraphy is acquired from the skull base to the proximal thighs. Triplanar noncontrast CT scanning is acquired through the same anatomic range for attenuation correction, and image registration with scan parameters optimized to minimize radiation exposure to the patient. PET scintigraphy and CT datasets were fused and displayed on a workstation with multiplanar and projection display capability. PET/CT Findings: There is mildly hypermetabolic lymph node uptake in two adjacent right para esophageal lymph nodes just below the thoracic inlet. Maximum standard uptake value is 4.10. There is mild precarinal lymphadenopathy which is hypermetabolic to a maximum standard uptake value 4.47. There is pleural thickening and some parenchymal fibrosis and opacity in the left mid lung zone posteriorly with maximum standard uptake value 3.08. This remains mildly hypermetabolic. This is the area where the previous study showed a large hypermetabolic mass. This area is essentially unchanged from most recent prior PET-CT study of April 11, 2019. There is new interstitial infiltrate in the right lower lobe with thickening of the inner lobular septi. There is an area of similar interstitial disease in the posterior aspect of the right upper lobe. These areas show mildly increased FDG accumulation. Maximum standard uptake value is a 2.44 which is not quite hypermetabolic but there is no mass here rather interstitial lung disease. This appearance is worrisome for lymphangitic neoplastic spread versus inflammatory infiltrate. No abnormal hypermetabolic uptake is seen in the abdomen or pelvis. Impression: There are hypermetabolic lymph node foci in the precarinal and right para esophageal superior mediastinal lymph nodes. There is interstitial infiltrative disease in the right lower lobe and right upper lobe posteriorly which raises a question for lymphangitic tumor spread. Residual uptake in the left lower lobe is unchanged from most recent prior PET-CT. Electronically Signed by Xu Colorado MD 07/18/2019 07:07 P
== END ==
LOC: M PLARAD 10:05
PROVIDERS: ATTEND Internal Medicine Hematology & Oncology
DX: C34.32 Malignant neoplasm of lower lobe, left bronchus or lung (principal)
CPT/HCPCS: 78815; A9552

== ENCOUNTER → 2019-10-11 | Outpatient (REF) | payer BC ==
[~2019-10-11] MED LIST changes: +ARTH650T17 PO; +CARV3.12 PO; -GLIM4TAB3 PO; +GLIM4TAB5 PO; +IPRA0.00 NEB; +K-TA10TA2 PO; +XANA0.25 PO
[2019-10-11 20:06] LABS: PERCENT SATURATION 16.3 % (19.7-50.0)
[2019-10-11 21:16] LABS: FOLATE 18.2 NG/ML
== END ==
LOC: M LAB REF 19:05
PROVIDERS: ATTEND Internal Medicine Nephrology
DX: D64.9 Anemia, unspecified (principal)

== ENCOUNTER 2019-10-24 12:47 | Outpatient (CLI) | payer BC ==
[~2019-10-24] VITALS: Ht 170.2 cm; Wt 60.0 kg
[2019-10-24 13:30] VITALS: BP 148/63
[2019-10-24] MEDS ORDERED: methylPREDNISolone INJ 125 MG/2 ML VIAL (J2930) IV PRN (14:00)
[2019-10-24] MEDS ORDERED: ALBUTEROL SULFATE 2.5 MG/0.5 ML INH NEB SOLN INH PRN (14:00)
[2019-10-24] MEDS ORDERED: diphenhydrAMINE INJ 50MG/ML VIAL (J1200) IV PRN (14:00)
[2019-10-24] MEDS ORDERED: NS 1,000 ML IV SCH (14:00)
[2019-10-24] MEDS ORDERED: EPINEPHrine INJ 1 MG/ML 1ML VIAL IM PRN (14:00)
[2019-10-24] MEDS ORDERED: FERRIC CARBOXYMALTOSE INJ 750 MG in NS 250 ML IV ONE (14:00)
[2019-10-24 15:00] VITALS: BP 164/68
== END 2019-10-25 15:00 | disposition home or self-care (01) ==
LOC: M INFU 12:47
PROVIDERS: ATTEND Internal Medicine Nephrology
DX: D50.9 Iron deficiency anemia, unspecified (principal); Z88.0 Allergy status to penicillin
CPT/HCPCS: 96365; J1439

== ENCOUNTER 2019-10-31 13:15 | Outpatient (CLI) | payer BC ==
[~2019-10-31] VITALS: Ht 170.2 cm; Wt 60.0 kg
[2019-10-31] MEDS ORDERED: FERRIC CARBOXYMALTOSE INJ 750 MG in NS 250 ML IV ONE (13:30)
[2019-10-31] MEDS ORDERED: SODIUM CHLORIDE 0.9% INJ 10 ML SYR IV PRN (13:45)
[2019-10-31 13:53] VITALS: BP 143/56
[2019-10-31 15:08] VITALS: BP 144/51
[2019-11-01] MEDS ORDERED: SODIUM CHLORIDE 0.9% INJ 10 ML SYR IV SCH (09:00)
== END 2019-10-31 15:05 | disposition home or self-care (01) ==
LOC: M INFU 13:15
PROVIDERS: ATTEND Internal Medicine Nephrology
DX: D50.9 Iron deficiency anemia, unspecified (principal); Z88.0 Allergy status to penicillin
CPT/HCPCS: 96365; J1439; J1642

== ENCOUNTER → 2020-02-27 | Outpatient (CLI) | payer BC ==
[~2020-02-27] MED LIST changes: -AMIO200T PO; +AMIO200T3 PO; +ASPI1CHW3 PO; +ELIQ2.5T PO; +FEBU40TA4 PO; +GABA-845 PO; +TRAZ-252 PO
--- NOTE | 2020-04-22 09:00 | REP ---
WHOLE BODY PET-CT SCAN STUDY DATE: 02/27/2020 COMPARISON: 07/18/2019. HISTORY: Study is performed for lung cancer followup. FINDINGS: NECK AND SUPRACLAVICULAR AREAS: On the comparison study, there were two hypermetabolic lymph nodes at the thoracic inlet along the right lateral margin of the esophagus. These are again identified today. The maximal standard uptake value today is 2.5, previously it was 4.1. There are no other foci in the neck or supraclavicular areas.. CHEST: There is a new hypermetabolic focus along the superomedial margin of the left scapular body with a maximal standard uptake value of 7.1. There is a hypermetabolic focus in the soft tissues superior and anterior to the left acromioclavicular joint with a maximal standard uptake of 7.9. There is slightly increased uptake in the left infraspinatus muscle with a maximal standard uptake value of 2.1. There is a large precarinal hypermetabolic focus that has significantly increased in size and activity. The maximal standard uptake value today is 12.8, previously 4.1. There is a new hypermetabolic focus in the right hilus with a maximal standard uptake value of 4.5. There is a new hypermetabolic focus peripherally in the right lung at the level of the right hilus with a maximal standard uptake value of 4.4, not present previously. There is a persisting fibrosis posteromedially in the left lung posterior to the left hilus, similar in appearance to the prior study. Current maximal standard uptake value in this area today is 2.8; previously it was 3.1. There is a new hypermetabolic focus in the soft tissues of the intercostal space laterally in the left hemithorax at the approximate left seventh and eighth rib level as an interval change. Maximal standard uptake value is 2.7. The interstitial pattern identified previously in the right upper lobe posteriorly and right lower lobe has not significantly changed. ABDOMEN, PELVIS AND UPPER THIGHS: There are no hypermetabolic foci, as previously. No adrenal foci are identified. IMPRESSION: There are new hypermetabolic foci in the left scapula, the soft tissues adjacent to the left acromioclavicular joint and in the left infraspinatus muscle, as well as in the right hilus and peripherally in the right lung. The previous hypermetabolic paraesophageal nodes at the thoracic inlet have decreased in activity. The previous precarinal mediastinal hypermetabolic focus has significantly increased in size and activity. The focal area of fibrosis posteromedially in the left lung is unchanged. The interstitial thickening identified previously in the lung [place] is unchanged. The study is performed with 7.55 mCi of F18 FDG. MTDD
== END ==
LOC: M PLARAD 08:00
PROVIDERS: ATTEND Internal Medicine Medical Oncology
DX: C34.32 Malignant neoplasm of lower lobe, left bronchus or lung (principal)
CPT/HCPCS: 78815; A9552

== ENCOUNTER → 2020-05-31 13:15 | Outpatient (RCR) | payer BC ==
[2018-05-05 08:18] LABS: HEMOGLOBIN 9.9 g/dl (12.0-18.0); LYMPH % 12.9 % (10.0-58.5); MEAN CORPUSCULAR HEMOGLOBIN 28.4 pg (26.0-32.0); MEAN CORPUSCULAR HGB CONC 31.9 g/dl (31.0-36.0); MEAN CORPUSCULAR VOLUME 89.2 fl (80.0-97.0); NEUTROPHILS # 9.4 10^3/uL (2.0-7.8); NEUTROPHILS % 81.4 % (37.0-92.0); RED BLOOD COUNT 3.48 10^6/uL (4.2-6.3); WHITE BLOOD COUNT 11.5 10^3/uL (4.1-10.9)
[2018-05-05 08:31] LABS: ALBUMIN 3.4 GM/DL (3.5-5.2); BLOOD UREA NITROGEN 48 MG/DL (6-20); CALCIUM LEVEL 8.9 MG/DL (8.5-10.2); CARBON DIOXIDE LEVEL 22.9 MEQ/L (23-31); CHLORIDE LEVEL 101 MMOL/L (98-107); CREATININE FOR GFR 1.81 MG/DL (0.90-1.30); GLOMERULAR FILTRATION RATE 38.9 (>42); POTASSIUM SERUM 4.4 MMOL/L (3.5-5.1); SODIUM LEVEL 131.6 MMOL/L (136-145); TOTAL PROTEIN 6.7 GM/DL (6.4-8.3)
[2018-05-05 08:32] LABS: GLUCOSE, FASTING 436 MG/DL (70-105)
[2018-05-05 11:32] VITALS: BP 120/48
[2018-05-09 13:35] VITALS: BP 137/90
[2018-05-25 09:00] VITALS: BP 135/52
[2018-05-25 09:01] LABS: HEMATOCRIT 32.4 % (37.0-51.0); HEMOGLOBIN 9.9 g/dl (12.0-18.0); LYMPH % 10.4 % (10.0-58.5); MEAN CORPUSCULAR HEMOGLOBIN 27.1 pg (26.0-32.0); MEAN CORPUSCULAR HGB CONC 30.6 g/dl (31.0-36.0); MEAN CORPUSCULAR VOLUME 88.8 fl (80.0-97.0); NEUTROPHILS # 14.5 10^3/uL (2.0-7.8); NEUTROPHILS % 84.4 % (37.0-92.0); RED BLOOD COUNT 3.65 10^6/uL (4.2-6.3); WHITE BLOOD COUNT 17.2 10^3/uL (4.1-10.9)
[2018-05-25 09:26] LABS: ALBUMIN 3.4 GM/DL (3.5-5.2); BLOOD UREA NITROGEN 40 MG/DL (6-20); CARBON DIOXIDE LEVEL 23 MEQ/L (23-31); CHLORIDE LEVEL 103 MMOL/L (98-107); CREATININE FOR GFR 1.51 MG/DL (0.90-1.30); GLOMERULAR FILTRATION RATE 47.9 (>42); GLUCOSE, FASTING 89 MG/DL (70-105); POTASSIUM SERUM 3.9 MMOL/L (3.5-5.1); SODIUM LEVEL 134 MMOL/L (136-145); TOTAL PROTEIN 6.5 GM/DL (6.4-8.3)
[2018-05-25] MEDS: SODIUM CHLORIDE 0.9% INJ 10 ML SYR IV PRN (15:12)
[2018-06-06] MEDS: SODIUM CHLORIDE 0.9% INJ 10 ML SYR IV PRN (13:16)
[2018-06-06 13:19] VITALS: BP 112/68
[2018-06-06 13:29] LABS: HEMATOCRIT 26.2 % (37.0-51.0); HEMOGLOBIN 8.3 g/dl (12.0-18.0); LYMPH % 8.8 % (10.0-58.5); MEAN CORPUSCULAR HEMOGLOBIN 29.2 pg (26.0-32.0); MEAN CORPUSCULAR HGB CONC 31.7 g/dl (31.0-36.0); MEAN CORPUSCULAR VOLUME 92.4 fl (80.0-97.0); NEUTROPHILS # 21.8 10^3/uL (2.0-7.8); RED BLOOD COUNT 2.84 10^6/uL (4.2-6.3)
[2018-06-06 13:32] LABS: WHITE BLOOD COUNT 25.3 10^3/uL (4.1-10.9)
[2018-06-06 13:41] LABS: ALBUMIN 3.4 GM/DL (3.5-5.2); BLOOD UREA NITROGEN 25 MG/DL (6-20); CALCIUM LEVEL 8.7 MG/DL (8.5-10.2); CARBON DIOXIDE LEVEL 24 MEQ/L (23-31); CHLORIDE LEVEL 107 MMOL/L (98-107); CREATININE FOR GFR 1.43 MG/DL (0.90-1.30); GLUCOSE, FASTING 284 MG/DL (70-105); POTASSIUM SERUM 4.4 MMOL/L (3.5-5.1); SODIUM LEVEL 137 MMOL/L (136-145); TOTAL PROTEIN 6.1 GM/DL (6.4-8.3)
[2018-06-06 15:14] LABS: FREE T4 0.9 NG/DL (0.76-1.46); THYROID STIMULATING HORMONE 1.62 uIU/ML (0.358-3.740)
[2018-06-15 08:40] VITALS: BP 99/64
[2018-06-15 09:03] LABS: HEMATOCRIT 28.2 % (37.0-51.0); HEMOGLOBIN 8.7 g/dl (12.0-18.0); LYMPH % 8.5 % (10.0-58.5); MEAN CORPUSCULAR HEMOGLOBIN 28.7 pg (26.0-32.0); MEAN CORPUSCULAR HGB CONC 30.9 g/dl (31.0-36.0); MEAN CORPUSCULAR VOLUME 93.1 fl (80.0-97.0); NEUTROPHILS # 13.7 10^3/uL (2.0-7.8); NEUTROPHILS % 87.1 % (37.0-92.0); RED BLOOD COUNT 3.03 10^6/uL (4.2-6.3); WHITE BLOOD COUNT 15.7 10^3/uL (4.1-10.9)
[2018-06-15 09:17] LABS: ALBUMIN 3.5 GM/DL (3.5-5.2); CALCIUM LEVEL 9.1 MG/DL (8.5-10.2); CREATININE FOR GFR 1.44 MG/DL (0.90-1.30); GLOMERULAR FILTRATION RATE 50.6 (>42); POTASSIUM SERUM 4.6 MMOL/L (3.5-5.1); TOTAL PROTEIN 6.6 GM/DL (6.4-8.3)
[2018-06-15] MEDS: SODIUM CHLORIDE 0.9% INJ 10 ML SYR IV PRN (16:37)
[2018-06-27 14:15] LABS: HEMATOCRIT 33.1 % (37.0-51.0); LYMPH % 9.6 % (10.0-58.5); MEAN CORPUSCULAR HEMOGLOBIN 31.5 pg (26.0-32.0); MEAN CORPUSCULAR HGB CONC 33.2 g/dl (31.0-36.0); MEAN CORPUSCULAR VOLUME 94.9 fl (80.0-97.0); NEUTROPHILS # 20.2 10^3/uL (2.0-7.8); NEUTROPHILS % 86.8 % (37.0-92.0); RED BLOOD COUNT 3.49 10^6/uL (4.2-6.3); WHITE BLOOD COUNT 23.3 10^3/uL (4.1-10.9)
[2018-06-27 14:20] LABS: ALBUMIN 3.6 GM/DL (3.5-5.2); CALCIUM LEVEL 9.3 MG/DL (8.5-10.2); CREATININE FOR GFR 1.42 MG/DL (0.90-1.30); GLOMERULAR FILTRATION RATE 51.5 (>42); POTASSIUM SERUM 4.7 MMOL/L (3.5-5.1); TOTAL PROTEIN 6.7 GM/DL (6.4-8.3)
[2018-06-27 14:31] VITALS: BP 85/56
[2018-06-27 14:34] VITALS: BP 105/61
[2018-06-27 14:55] LABS: FREE T4 0.98 NG/DL (0.76-1.46); THYROID STIMULATING HORMONE 2.02 uIU/ML (0.358-3.740)
--- NOTE | 2018-06-28 09:51 | MEDONC ---
REVIEW PATIENT FOLLOWUP DATE OF SERVICE: 06/27/2018 DIAGNOSIS: Metastatic squamous cell lung cancer. Left lower lobe lung squamous cell carcinoma from a needle biopsy 12/2017 showing invasive squamous carcinoma, moderately differentiated, PD-L1, tumor proportion score of 30%. PET scan 03/2018 showing hypermetabolic uptake in left lower lobe lung mass, subcarinal, precarinal and left hilar lymphadenopathy as well as contralateral (right) lung nodules. Started palliative carboplatin/paclitaxel chemotherapy May 2018. HISTORY OF PRESENT ILLNESS: Mr. Sorto has so far completed three cycles of carboplatin/paclitaxel chemotherapy with pembrolizumab added on the third cycle of chemotherapy. He reports a good appetite. He has gained weight since his last visit here. He reports no fevers, but he did have slightly borderline temperature on his last visit here at 99 degrees Fahrenheit. No night sweats. He has had fair energy levels and he has been tired some days, but better on some other days. His reports that he was walking better post blood transfusion the last time he was here. He reports no headaches. Sometimes he feels weak and wobbly, but other times he is not as wobbly when walking. No chest pain. He has mild shortness of breath which has been stable from previous. He sometimes has a phlegmy cough with whitish phlegm. No nausea. No vomiting. No hemoptysis. No abdominal pains. He had left shoulder pain of short duration recently with no recurrence. He has always been constipated for which he uses MiraLAX, but when he uses MiraLAX he usually develops diarrhea and he had diarrhea twice a week ago and none since that time. Mostly these are not watery stools, but soft stools. No urinary problems. He has always had easy bruising from being on Plavix. No rectal bleeding. No urinary bleeding. Once in awhile he has nose bleeds. He has had mucositis which resolved right away. No skin rash. He reports tingling and numbness on his fingertips with chemotherapy, but none on his feet. He is currently on oral iron supplements. On physical exam, he weighed 121 pounds. Blood pressure 105/61. Heart rate 85 per minute. Temperature 97.4. Oxygen saturation 100% on room air. He had pinkish conjunctivae, anicteric sclerae. No oral mucosal lesions. No palpable cervical lymph nodes. Lungs fair air entry. No rales, rhonchi, or wheeze. S1, S2 regular. No murmur or gallop. Abdomen was soft, nontender. No guarding. Positive bowel sounds. Extremities-No calf swelling, no calf tenderness, and no pedal edema. IMPRESSION AND PLAN: Mr. Sorto is on paclitaxel/carboplatin chemotherapy for a metastatic lung cancer. He was started on pembrolizumab on his most recent cycle of chemotherapy. He was asking if he could drop chemotherapy with his next cycle. I discussed that it would be important to complete four cycles of chemotherapy at this point in time. In the end he was fine to continue with chemotherapy, but he did inform me that he may change his mind closer to the scheduled time of appointment next week. I discussed that with immunotherapy there can also be side effects. Will arrange from him to have a followup CT scan after the fourth cycle of chemotherapy to assess response to treatment. Electronically Signed by Heide Serrano MD, FACP 07/16/2018 03:57 P DD: Heide Serrano MD, FACP 06/27/2018 05:29 P DT: joo 06/28/2018 08:59 A CC: Bryon Maldonado MD
[2018-07-06 08:51] LABS: HEMATOCRIT 33.7 % (37.0-51.0); LYMPH % 9.9 % (10.0-58.5); MEAN CORPUSCULAR HEMOGLOBIN 30.8 pg (26.0-32.0); MEAN CORPUSCULAR HGB CONC 32.6 g/dl (31.0-36.0); MEAN CORPUSCULAR VOLUME 94.3 fl (80.0-97.0); NEUTROPHILS # 13.1 10^3/uL (2.0-7.8); RED BLOOD COUNT 3.57 10^6/uL (4.2-6.3); WHITE BLOOD COUNT 15.4 10^3/uL (4.1-10.9)
[2018-07-06 09:07] LABS: ALBUMIN 3.8 GM/DL (3.5-5.2); CALCIUM LEVEL 9.2 MG/DL (8.5-10.2); CREATININE FOR GFR 1.52 MG/DL (0.90-1.30); GLOMERULAR FILTRATION RATE 47.6 (>42); POTASSIUM SERUM 4.5 MMOL/L (3.5-5.1); TOTAL PROTEIN 6.9 GM/DL (6.4-8.3)
[2018-07-06] MEDS: FOSAPREPITANT PERIPHERAL LINE 30 MIN INFUSION (PREMIX) IV ONE ×4 (09:30→09:54)
[2018-07-06 10:02] VITALS: BP 112/68
[2018-07-19 13:41] VITALS: BP 112/64
[2018-07-19 13:56] LABS: HEMATOCRIT 34.1 % (37.0-51.0); HEMOGLOBIN 10.8 g/dl (12.0-18.0); LYMPH % 16.1 % (10.0-58.5); MEAN CORPUSCULAR HEMOGLOBIN 30.7 pg (26.0-32.0); MEAN CORPUSCULAR HGB CONC 31.7 g/dl (31.0-36.0); MEAN CORPUSCULAR VOLUME 96.8 fl (80.0-97.0); NEUTROPHILS # 10.3 10^3/uL (2.0-7.8); NEUTROPHILS % 78.9 % (37.0-92.0); RED BLOOD COUNT 3.52 10^6/uL (4.2-6.3); WHITE BLOOD COUNT 13.1 10^3/uL (4.1-10.9)
[2018-07-19 14:11] LABS: ALBUMIN 3.8 GM/DL (3.5-5.2); BLOOD UREA NITROGEN 39 MG/DL (6-20); CALCIUM LEVEL 9.4 MG/DL (8.5-10.2); CARBON DIOXIDE LEVEL 26 MEQ/L (23-31); CHLORIDE LEVEL 104 MMOL/L (98-107); CREATININE FOR GFR 1.32 MG/DL (0.90-1.30); GLUCOSE, FASTING 232 MG/DL (70-105); POTASSIUM SERUM 4.7 MMOL/L (3.5-5.1); SODIUM LEVEL 137 MMOL/L (136-145); TOTAL PROTEIN 6.9 GM/DL (6.4-8.3)
[2018-07-19 14:29] LABS: FREE T4 1.01 NG/DL (0.76-1.46); THYROID STIMULATING HORMONE 1.27 uIU/ML (0.358-3.740)
--- NOTE | 2018-07-20 15:29 | MEDONC ---
REVIEW PATIENT FOLLOWUP DATE OF SERVICE: 07/19/2018 DIAGNOSIS: Metastatic squamous cell lung cancer with presumed contralateral lung metastases. TREATMENT SUMMARY Left lower lobe lung squamous cell carcinoma from a needle biopsy 12/2017 showing invasive squamous carcinoma, moderately differentiated, PD-L1, tumor proportion score of 30%. PET scan 03/2018 showing hypermetabolic uptake in left lower lobe lung mass, subcarinal, precarinal and left hilar lymphadenopathy as well as contralateral (right) lung nodules. Started palliative carboplatin/paclitaxel chemotherapy May 2018. Pembrolizumab added on the third cycle (06/2018) and patient decided to discontinue Carboplatin/Paclitaxel chemotherapy after 3 cycles. Currently on pembrolizumab single agent as decided by patient. Interval CT scan 07/2018 showing decrease in size of the left lower lobe lung lesion and stable disease elsewhere. HISTORY OF PRESENT ILLNESS: Mr. Sorto decided to come off chemotherapy after receiving three cycles and decided to continue on pembrolizumab immunotherapy. He reports a good appetite at present. His weight has been stable. No fevers. No night sweats. He sometimes feels tired during the day and he takes naps during the day, but he feels that he is not any more tired than usual. He currently continues on oral iron supplements. He reports no headaches. No dizziness. No vision changes. No chest pain. No shortness of breath. No cough. No nausea. No vomiting. No abdominal pains. No bone pains in general, but he reports occasional right leg achiness from laying on the right side. He takes Tylenol for this pain. No diarrhea. No constipation. He has had regular bowel movements. No urinary problems. He has easy bruising likely from clopidogrel. No rectal bleeding. No urinary bleeding. No epistaxis. No mucositis and no peripheral edema. On physical exam, he weighed 52.7 kilograms. Temperature 97.8. Heart rate 82 per minute. Blood pressure 112/64. Saturation 100% on room air. He had pinkish conjunctivae, anicteric sclerae. No oral mucosal lesions. No palpable cervical nodes. Lungs fair air entry. No rales, rhonchi, or wheeze. S1, S2 regular. Abdomen was soft, nontender, no guarding. Positive bowel sounds. Extremities-No calf swelling, no calf tenderness, and no pedal edema. IMPRESSION AND PLAN: Mr. Monroe is currently on pembrolizumab and seems to have no significant issues with this. His liver function test from today came back normal. He had mild anemia with hemoglobin level of 10.8 g/dL. TSH and free T4 levels were within normal limits. He had CT scan recently which showed a left lower lobe mass measuring 6 x 3.8 x 3.6 as well as adenopathy. This was, however, compared to a 2011 [address] scan. On comparing this to the size of his lung mass from his PET scan 03/2018 it seems that the lung mass has decreased in size as this was 6.4 cm on the PET scan the most recent CT scan reported this as 6 cm in size. I discussed with Mr. Sorto that I will discuss this with the radiologist again to assess for improvement in his lung lesions. In the meantime he was advised to continue on pembrolizumab. I did discuss with him that it would be reasonable to complete one more cycle of chemotherapy as he has had three and the recommended number of cycles is four, but Mr. Sorto did not want to proceed with a fourth cycle of chemotherapy. He is scheduled to receive pembrolizumab next week. He will continue on this every 3 weeks. I requested a review of the CT scan with Dr. Colorado of radiology. Dr. Colorado informed me that the left lower lobe lung mass had decreased in size when compared to the 03/2018 PET scan. The rest of chest lesions were deemed stable by Dr. Colorado. Results discussed with Mr. Sorto. Electronically Signed by Heide Serrano MD, FACP 08/02/2018 11:42 A DD: Heide Serrano MD, FACP 07/19/2018 05:40 P DT: joo 07/20/2018 03:12 P CC: Bryon Maldonado MD
[2018-07-27 12:50] VITALS: BP 133/55
[2018-07-27 13:23] LABS: HEMATOCRIT 31.5 % (42.0-52.0); HEMOGLOBIN 10.4 g/dl (13.5-17.5); LYMPH % 19.8 % (24.0-44.0); MEAN CORPUSCULAR HEMOGLOBIN 32.5 pg (27.0-33.0); MEAN CORPUSCULAR VOLUME 98.4 fl (80.0-96.0); NEUTROPHILS # 7.1 10^3/uL (1.8-7.7); RED BLOOD COUNT 3.2 10^6/uL (4.30-6.10); WHITE BLOOD COUNT 9.5 10^3/uL (4.0-10.0)
[2018-07-27 13:45] LABS: ALBUMIN 3.8 GM/DL (3.5-5.2); CALCIUM LEVEL 9.1 MG/DL (8.5-10.2); CREATININE FOR GFR 1.41 MG/DL (0.90-1.30); GLOMERULAR FILTRATION RATE 51.9 (>42); POTASSIUM SERUM 4.5 MMOL/L (3.5-5.1); TOTAL PROTEIN 6.7 GM/DL (6.4-8.3)
[2018-08-19 11:49] LABS: HEMATOCRIT 32.1 % (42.0-52.0); HEMOGLOBIN 10.6 g/dl (13.5-17.5); LYMPH % 22.9 % (24.0-44.0); MEAN CORPUSCULAR HEMOGLOBIN 33.7 pg (27.0-33.0); MEAN CORPUSCULAR VOLUME 101.9 fl (80.0-96.0); NEUTROPHILS # 5.5 10^3/uL (1.8-7.7); RED BLOOD COUNT 3.15 10^6/uL (4.30-6.10); WHITE BLOOD COUNT 7.7 10^3/uL (4.0-10.0)
[2018-08-19 11:58] LABS: ALBUMIN 3.8 GM/DL (3.5-5.2); BLOOD UREA NITROGEN 43 MG/DL (6-20); CALCIUM LEVEL 9.3 MG/DL (8.5-10.2); CARBON DIOXIDE LEVEL 23 MEQ/L (23-31); CHLORIDE LEVEL 107 MMOL/L (98-107); CREATININE FOR GFR 1.45 MG/DL (0.90-1.30); GLOMERULAR FILTRATION RATE 50.1 (>42); GLUCOSE, FASTING 246 MG/DL (70-105); POTASSIUM SERUM 4.6 MMOL/L (3.5-5.1); SODIUM LEVEL 139 MMOL/L (136-145); TOTAL PROTEIN 6.6 GM/DL (6.4-8.3)
[2018-08-19 12:00] VITALS: BP 142/76
[2018-08-19 13:18] LABS: FREE T4 0.79 NG/DL (0.76-1.46); THYROID STIMULATING HORMONE 1.52 uIU/ML (0.358-3.740)
--- NOTE | 2018-08-23 06:43 | MEDONC ---
REVIEW PATIENT FOLLOWUP DATE OF SERVICE: 08/19/2018 DIAGNOSIS: Metastatic squamous cell lung cancer with presumed contralateral lung metastases. TREATMENT SUMMARY Left lower lobe lung squamous cell carcinoma from a needle biopsy 12/2017 showing invasive squamous carcinoma, moderately differentiated, PD-L1, tumor proportion score of 30%. PET scan 03/2018 showing hypermetabolic uptake in left lower lobe lung mass, subcarinal, precarinal and left hilar lymphadenopathy as well as contralateral (right) lung nodules. Started palliative carboplatin/paclitaxel chemotherapy May 2018. Pembrolizumab added on the third cycle (06/2018) and patient declined to continue Carboplatin/Paclitaxel chemotherapy after 3 cycles. Currently on pembrolizumab single agent. Interval CT scan 07/2018 showing decrease in size of the left lower lobe lung lesion and stable disease elsewhere. HISTORY OF PRESENT ILLNESS: Mr. Sorto reports a good appetite. He has lost a little bit of weight since his last visit here, and he wondered about this as his appetite has been very good and he has been eating a lot. He reports no fevers. No night sweats. He reports low energy levels, but he is up and about and he does go out of the house on weekends. No headaches. No dizziness. No vision changes. No chest pain. No shortness of breath. He has a cough once in a while with light colored phlegm. No hemoptysis. He continues to smoke at present and was advised to quit smoking. No nausea. No vomiting. No abdominal pains. No bone pains. No diarrhea. He has constipation once in a while. No urinary problems. He has had easy bruising, likely secondary to Plavix and aspirin use. No rectal bleeding. No urinary bleeding. No vaginal bleeding. He has epistaxis once in a while of short duration in the morning, but nothing significant. No pedal edema. On physical exam, he weighed 51.5 kg. Temperature 97.5 degrees Fahrenheit. Heart rate 82 per minute. Blood pressure 142/76. Pulse oximetry 100% on room air. He had pinkish conjunctiva, anicteric sclerae. No oral mucosal lesions. No palpable cervical nodes. Lungs fair air entry. No rales, no rhonchi, no wheeze. S1 and S2 regular. Abdomen was soft, nontender. No guarding. Extremities - no calf swelling, no calf tenderness, and no pedal edema. IMPRESSION/PLAN: Mr. Sorto is currently on pembrolizumab for a metastatic lung cancer. He has so far had no major issues with this. His blood tests today came back with blood counts acceptable for treatment. He also had stable chemistry tests with normal liver function tests. His thyroid function test came back also within normal limits. I discussed that he should have a follow-up CT scan in September of this year as his last CT scan was in July 2018. Electronically Signed by Heide Serrano MD, FACP 09/04/2018 11:03 P DD: Heide Serrano MD, FACP 08/19/2018 01:54 P DT: [facility] [place] 08/23/2018 06:31 A CC: Bryon Maldonado MD
[2018-09-08 09:31] LABS: HEMATOCRIT 29.4 % (42.0-52.0); HEMOGLOBIN 10.1 g/dl (13.5-17.5); LYMPH % 21.2 % (24.0-44.0); MEAN CORPUSCULAR HEMOGLOBIN 35.7 pg (27.0-33.0); MEAN CORPUSCULAR HGB CONC 34.4 g/dl (32.0-36.5); RED BLOOD COUNT 2.83 10^6/uL (4.30-6.10); WHITE BLOOD COUNT 8.4 10^3/uL (4.0-10.0)
[2018-09-08 09:49] VITALS: BP 142/58
[2018-09-08 09:57] LABS: ALBUMIN 3.9 GM/DL (3.5-5.2); BLOOD UREA NITROGEN 47 MG/DL (6-20); CALCIUM LEVEL 8.9 MG/DL (8.5-10.2); CARBON DIOXIDE LEVEL 25 MEQ/L (23-31); CHLORIDE LEVEL 107 MMOL/L (98-107); CREATININE FOR GFR 1.33 MG/DL (0.90-1.30); GLOMERULAR FILTRATION RATE 55.4 (>42); GLUCOSE, FASTING 149 MG/DL (70-105); POTASSIUM SERUM 4.5 MMOL/L (3.5-5.1); SODIUM LEVEL 140 MMOL/L (136-145); TOTAL PROTEIN 6.6 GM/DL (6.4-8.3)
[2018-09-08 12:03] VITALS: BP 124/52
--- NOTE | 2018-09-20 10:18 | MEDONC ---
OUTPATIENT CENTER PROGRESS NOTE DATE OF SERVICE: 09/08/2018 PRIMARY PHYSICIAN: None according to the patient. REASON FOR VISIT: Continuing treatment for lung cancer. Patient came today with his , they live in [place], [place] and their diagnosis was actually made elsewhere according to the pathology reports that we have received. We believe it was at [facility] that he had his bronchoscopy. Patient is retired from the [employer]. 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 He has a past history of alcohol intake and he as a 50 plus pack year smoking history. PRIMARY DIAGNOSIS: 1. Squamous cell carcinoma of the left lung, moderately differentiated. a. Patient supposedly presented at [facility] with a left hilar mass of adenopathy, mediastinal adenopathy and a left lower lobe mass around December of 2017. January 10, 2018 at [facility] patient had a bronchoscopy done and a transbronchial biopsy done of the superior segment of the left lower lobe which came back negative. A subcarinal node FNA was also done at the same procedure, that came back negative. b. January 14, [address] guided needle biopsy done of the lower lung mass and it showed invasive moderately differentiated squamous cell carcinoma. PD-L1 was done and the TPS was 30% (low expression). c. Very interesting we found a sputum sample from way back September 03, 2011 where the sputum showed suspicious for malignancy, a few cells with atypical hyperchromatic nuclei and question keratinizing cytoplasm. d. PET scan done March 29, 2018 showed hypermetabolic areas in the patient's left lower lobe lung mass as well as two right sided pulmonary nodules and several subcarinal, precarinal, left hilar lymph nodes. The two nodules in the right lung were in the right upper lobe and the second one was in the region of the right lung base posteriorly. The left lung mass measured 6.4 cm and the SUV was 15.6. e. Patient was first seen at the [facility] March 09, [address] Serrano and after a long discussion placed on palliative chemotherapy with Carboplatin and Taxol. Patient started the chemotherapy, his first treatment was May 2018. Keytruda/pembrolizumab was added with Cycle #04 June 2018. After four cycles of Carbo/Taxol patient refused to take anymore chemo, but stayed on the Keytruda as a single agent. So patient's first chemo treatment was May 05, second one was May 25, 2018, the third cycle of Keytruda was added was June 15, 2018 and actually patient did take the fourth treatment July 06, 2018 with the chemo along with the Keytruda and the after that has just been on the Keytruda alone starting July 27, 2018 every 3 weeks. f. CAT scan chest, abdomen and pelvis done July 2018 did show decreasing left lower lung lesion and otherwise stable disease elsewhere. CURRENT TREATMENT: Keytruda 200 mg IV every 3 weeks. CONCURRENT DIAGNOSIS: Diabetes mellitus on glimepiride. Coronary artery disease. Atrial fibrillation. CABG 2012. [place] 2018. On Plavix and a baby aspirin and Lasix and Cartia XT. ALLERGIES: PENICILLIN, gives him a rash. SOCIAL HISTORY: As mentioned above in the first paragraph. Patient was in the [employer]. 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 Smoked at least 2-1/2 packs a day at one point and drank significant beer up until 3-4 years ago. SYSTEMIC REVIEW: Patient says if he gets up too fast he gets a little lightheaded, he thinks it is related to his medications. He is not having any bleeding. He has not passed out. No seizures. No fevers. No chills. No nausea. No vomiting. He is short of breath if he exerts himself too much and his skin has nothing to do with the chemo he insists has always been very very dry and it itches because of the dryness. He has tried every ointment possible on the market and nothing seems to have helped him so he is frustrated about that. Other than that patient says he has Dupuytren's contractures in both hands, but he manages quite well even with the contractures. He tends to bruise easily basically black baldwin on his forearms from the Plavix and he has learned to live with that also and if bumps himself which he does frequently especially on his shins and tears the skin quite badly like he has done just yesterday on his left meadows. All other systems are stable. Patient's concurs, she is in the room with the patient. On examination Mr. Sorto is awake, alert, oriented. Actually his vital signs are pretty good, they are normal and his oxygen saturation on room air is 100% despite his emphysema and smoking history. Blood pressure was 124/52. Conjunctiva pale. Sclera do not appear icteric. Performance status 1 to 2 on a scale of 4. Buccal mucosa shows mild pallor. Patient's gums are in bad shape. He has dentures. No adenopathy neck or axilla. Lungs are emphysematous. Cardiovascular system with a systolic murmur in the aortic area grade 2/6. Abdomen is soft, no guarding, rigidity, or tenderness. No pedal edema. No calf swelling of tenderness. No cyanosis. Patient has two scabs of skin tears, one on his right meadows and one on the left where he banged into something. Dupuytren's contractures are seen in both hands. Overall the skin is almost reminiscent of somebody with ichthyosis especially on the legs. Speech is normal. Gait is normal. Labs from today visited with the patient, reviewed, hemoglobin 10.1, MCV 100.4, white count 8.4, platelets 240,000, ANC 6.0, RDW 12.3. Chemistry panel from today - BUN 47, creatinine 1.33 with a GFR of 55.4, blood sugar 149, rest was normal including the liver functions. TSH 2.36 today. IMPRESSION: Mr. Sorto a 78-year-old gentleman, retired [employer], is doing reasonably well just on the pembrolizumab after four cycles of Carbo/Taxol last year for his Stage IV moderately differentiated squamous cell carcinoma of the left lower lung. Very interesting that as far back as September of 2011 patient had suspicious squamous cell carcinoma in his sputum at cytology, if this is the same cancer then it obviously is very slow growing. At present we will continue the Keytruda and the next scan we do we will prefer to do a PET scan rather than a CAT scan. Patient's renal function is actually stable, he improved from a GFR of 50 last month to 55 this month, but still with this cardiac issues and his diabetes we would rather not do CTs with iodine contrast. The anemia could be from the chemotherapy, but the MCV appears to have started rising after the chemo was discontinued so we are going to check, B12, folate levels, and since the patient is already taking oral iron supplements we want him to hold them before iron panel labs, so we get an accurate result. Mr. Sorto will stop all iron now and then at next visit we will check the above parameters. PLAN: As above. Proceed with treatment today. Return in 3 weeks with standing lab orders as per Dr. Serrano along with B12, folate, ferritin levels. Call as needed. Patient encouraged to get up slowly from sitting or lying posture in case he has developed autonomic dysfunction either from his diabetes or from the chemotherapy that he received last year. Electronically Signed by Karina Arteaga MD 10/10/2018 01:19 A DD: Karina Arteaga MD 09/17/2018 05:53 P DT: joo 09/20/2018 07:46 A CC: MD Marjan Berry MD
[2018-09-28 13:11] VITALS: BP 124/79
[2018-09-28 13:13] LABS: HEMATOCRIT 34.5 % (42.0-52.0); LYMPH % 21.1 % (24.0-44.0); MEAN CORPUSCULAR HGB CONC 31.9 g/dl (32.0-36.5); MEAN CORPUSCULAR VOLUME 103.5 fl (80.0-96.0); NEUTROPHILS # 6.1 10^3/uL (1.8-7.7); NEUTROPHILS % 71.4 % (36.0-66.0); RED BLOOD COUNT 3.33 10^6/uL (4.30-6.10); WHITE BLOOD COUNT 8.6 10^3/uL (4.0-10.0)
[2018-09-28 13:30] LABS: ALBUMIN 3.9 GM/DL (3.5-5.2); BLOOD UREA NITROGEN 38 MG/DL (6-20); CALCIUM LEVEL 9.2 MG/DL (8.5-10.2); CARBON DIOXIDE LEVEL 24 MEQ/L (23-31); CHLORIDE LEVEL 107 MMOL/L (98-107); CREATININE FOR GFR 1.38 MG/DL (0.90-1.30); GLOMERULAR FILTRATION RATE 53.1 (>42); GLUCOSE, FASTING 134 MG/DL (70-105); POTASSIUM SERUM 4.7 MMOL/L (3.5-5.1); SODIUM LEVEL 140 MMOL/L (136-145); TOTAL PROTEIN 7.3 GM/DL (6.4-8.3)
[2018-09-28 14:05] LABS: FOLATE 15.6 NG/ML (>5.4)
--- NOTE | 2018-09-29 14:20 | MEDONC ---
HEMATOLOGY/ONCOLOGY PROGRESS NOTE DATE OF SERVICE: 09/28/2018 PROGRESS NOTE: This is a very pleasant, 78-year-old gentleman with a known history of carcinoma of the lung. The patient was originally diagnosed with a moderately differentiated squamous cell carcinoma. He had been found by transbronchial biopsy to have a subcarinal lymph node that was found to be negative. A CT-guided needle biopsy of the lower lung mass showed an invasive moderately differentiated carcinoma. The patient had a PD-L1 tumor score of 30% (TPS). This is consistent with a low expression. The patient has been placed on the pembrolizumab after three cycles of carboplatinum and has stage IV disease currently. He has been doing well, tolerating the therapy well. The patient's past medical history includes coronary artery disease, diabetes. His ALLERGIES are to PENICILLIN. 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 Unsure of any kind of environmental exposures. His current medications include: - aspirin 325 mg p.o. daily - Plavix 75 mg p.o. daily - diltiazem 1 capsule p.o. daily - Lasix 40 mg p.o. daily - glimepiride 4 mg p.o. daily - serum iron 27 mg p.o. daily - lidocaine topical cream On his review of systems, he denies any history of any headache, visual disturbances. No problems with swallowing. No new dental issues. No history with any thyroid problems. Denies any history of any chest pain, shortness of breath, palpitations or wheezing. Denies history of nausea, vomiting, diarrhea or constipation. No change in color or caliber of stools. He has had no history of any bleeding hemorrhoids. No signs of any hematuria. Some slight urinary frequency at night, small amounts but no pain. He had no history of any numbness or tingling of the fingertips or toes. He is able to get about by myself and is able to take care of all of his activities of daily living. On the ECOG scale, he is 1/4. His temperature is 97.4. His BP is 124/74, pulse is 84, respiratory rate is 17, pulse oximetry is 99. His HEENT is normocephalic, atraumatic. PERRL. EOMI. Sclerae is otherwise white, it is nonicteric. His oropharynx is otherwise clear. His neck is supple with no adenopathy. His chest is clear to auscultation and percussion. Cardiovascular: S1 and S2 are appreciated with no murmurs. Abdomen is otherwise soft, nontender and no inguinal adenopathy. No costovertebral angle (CVA) tenderness. His extremities show no cyanosis, no clubbing or any edema. He has some splitting of the nails but no signs of any clubbing. His cranial nerves II-XII are grossly intact. He has some slight limitation of the range of motion, slight crepitance of the shoulders and the knees. He has no pedal edema and his skin shows no rashes or lesions or ecchymosis. His laboratories show a WBC count of 8.6, hemoglobin and hematocrit of 11/34, MCV of 103, RDW of 11.6, platelet count of 274,000. Neutrophils are 71. Lymphocytes are 21. On his serum chemistries, sodium 140, potassium 4.7, chloride 107, CO2 24, BUN 38, creatinine of 1.38, GFR of 53.1, calcium of 9.2, total bilirubin of 0.3, AST of -4, ALT of -4, alkaline phosphatase of 97, total protein is 7.3, albumin of 3.9, vitamin B12 of 418. The patient's most recent imaging studies were CT scan of the abdomen on 07/16/2018. Both films and the report were reviewed with the patient. Liver, spleen, gallbladder all within normal limits. He has bilateral kidney stones. No signs of any obstruction. Retroperitoneum adenopathy cannot be evaluated due to the lack of oral bowel contrast. There are no obvious masses noted in the abdominal area. On the CT scan of the chest, the patient shows adenopathy. Evaluation of the lung mccauley shows a cavitating mass in the left lower lobe, which measures 6 x 3.8 x 3.6 cm. This represents a change from the prior CT scan. There is a new asymmetric nodule measuring 6 mm in the left upper lobe. There is a new spiculated nodule in the right lower lobe anteriorly abutting the major fissure measuring 1.1 cm. Chronic bibasilar fibrotic changes are status quo. Impression at this time is stable disease currently status post Taxol and carboplatinum currently maintaining on the pembrolizumab. PLAN: The patient will need to have restaging CT scan of the chest and abdomen done in September of 2018. In the meantime, we will continue on him on the pembrolizumab. He is not showing any signs of any autoimmune phenomenon at this time. Electronically Signed by Phuong Martell MD 10/05/2018 01:13 P DD: Phuong Martell MD 09/29/2018 07:59 A DT: [email or web address] 09/29/2018 02:04 P CC:
[2018-10-19 13:10] LABS: HEMATOCRIT 34.9 % (42.0-52.0); HEMOGLOBIN 11.2 g/dl (13.5-17.5); LYMPH % 20.5 % (24.0-44.0); MEAN CORPUSCULAR HEMOGLOBIN 33.1 pg (27.0-33.0); MEAN CORPUSCULAR HGB CONC 32.1 g/dl (32.0-36.5); MEAN CORPUSCULAR VOLUME 103.3 fl (80.0-96.0); NEUTROPHILS # 6.8 10^3/uL (1.8-7.7); NEUTROPHILS % 71.5 % (36.0-66.0); RED BLOOD COUNT 3.38 10^6/uL (4.30-6.10); WHITE BLOOD COUNT 9.5 10^3/uL (4.0-10.0)
[2018-10-19 13:26] LABS: ALBUMIN 3.9 GM/DL (3.5-5.2); BLOOD UREA NITROGEN 40 MG/DL (6-20); CALCIUM LEVEL 8.9 MG/DL (8.5-10.2); CARBON DIOXIDE LEVEL 25 MEQ/L (23-31); CHLORIDE LEVEL 105 MMOL/L (98-107); CREATININE FOR GFR 1.45 MG/DL (0.90-1.30); GLOMERULAR FILTRATION RATE 50.1 (>42); GLUCOSE, FASTING 137 MG/DL (70-105); POTASSIUM SERUM 4.2 MMOL/L (3.5-5.1); SODIUM LEVEL 139 MMOL/L (136-145)
[2018-10-19 13:55] VITALS: BP 138/76
--- NOTE | 2018-10-27 08:32 | MEDONC ---
HEMATOLOGY/ONCOLOGY PROGRESS NOTE DATE OF SERVICE: 10/19/2018 This is a very pleasant 78-year-old gentleman who is here today in the clinic for followup of carcinoma of the lung. The patient is receiving pembrolizumab and on maintenance therapy after having been given TC chemotherapy for stage IV disease. The patient has been feeling well. He has not shown any signs of any hypophysitis, thyroiditis or interstitial nephritis to date from the chemotherapy. His past medical, surgical and family history have remained unchanged since his date of service of 09/28/2018. MEDICATIONS: His current medications include: - aspirin 325 mg p.o. daily - Plavix 75 mg p.o. daily - diltiazem one capsule p.o. daily - Lasix 40 mg p.o. daily - glimepiride 4 mg p.o. daily - serum iron 27 mg p.o. daily - lidocaine topical cream REVIEW OF SYSTEMS: 1. CONSTITUTIONAL: No weight loss, fever chills or night sweats. Occasional tiredness and fatigue. 2. EYES: No blurring of vision, no visual loss partial or complete, no tearing, redness. 3. EAR, NOSE, THROAT and MOUTH: No hearing loss, sinusitis, sore throat, dental problems, tooth pain. Denies dysphagia, mouth sores, bleeding. 4. RESPIRATORY: Negative for any signs of hemoptysis or any chest pain. Denies asthma, wheezing, cough, sputum production. 5. GI: No nausea, vomiting, diarrhea or constipation, change in color or caliber of stool. No hemorrhoids. No rectal bleeding. No hematemesis, heartburn. 6. : No hematuria, dysuria, frequency, stones. 7. CV: No chest pain, palpitations, murmur, fainting, lightheadedness or chest pressure. 8. ENDOCRINE: No cold or heat intolerance, diabetes, polyuria, polydipsia. 9. MUSCULOSKELETAL: No new joint stiffness, joint swelling, myalgias, gout. 10. ALLERGY/IMMUNOLOGY: No new allergies to food, medications. 11. HEMATOLOGICAL: Denies bruising, bleeding, lymph node enlargement. 12. PSYCHIATRIC: Denies depression, agitation, memory loss, panic attacks. 13. SKIN: Denies rashes, moles, dryness, pigment changes. 14. NEUROLOGIC: Denies dizziness, syncope, seizures, vertigo, weakness, tremor. PHYSICAL EXAMINATION: CONSTITUTIONAL: He remains a very thin gentleman. His BMI is 19.5. His weight is 54.9 kg. His temperature is 97. Pulse rate is 68. Respiratory rate is 18. Blood pressure is 138/76. Pulse oximetry is 100. HEENT: NC. AT, PERRL, EOMI, sclera is white, nonicteric, nares intact, oropharynx clear, no thrush, no buccal lesions, tongue without lesions, facial area without abnormalities. NECK: Trachea midline. No thyromegaly. No masses. CHEST: Normal AP diameter. No truncal lesions noted. No rales, rhonchi or wheezes noted. Clear to auscultation and percussion. CV: S1 and S2 appreciated, no murmurs, gallops or rubs. Rhythm RR. ABDOMEN: Soft, nontender. No HSM. No ascites. No guarding or rebound. : No CVA tenderness. Normal external genitalia, normal secondary sexual characteristics. EXTREMITIES: Upper extremities: No edema, swelling, abnormalities. Lower extremities show no cyanosis, clubbing or edema. No varicosities. Good capillary filling noted on right and left lower extremity. CHEST: Normal AP diameter, no truncal lesions noted, no rales rhonchi or wheezes noted, clear to auscultation and percussion. NEUROLOGICAL: Cranial nerves II- XII intact. No focal deficits, motor and sensory intact, no tremor. VASCULAR: Pulses equal and present in upper extremities and lower extremities. Good capillary filling in lower extremities. No carotid bruits. No abdominal bruits. MUSCULOSKELETAL: No point tenderness. Normal spinal alignment. Range of motion joints, no limitation. The patient is noted to have muscle wasting in his upper and lower extremities. SKIN: No lesions, rashes noted. PSYCH: No agitation, normal behavior. LABORATORIES: He shows a WBC count of 9.5, hemoglobin and hematocrit of 11.2 over 34.9. His platelet count is 257. Serum chemistry shows sodium of 139, potassium 4.2, chloride of 105, CO2 25, BUN of 40, creatinine of 1.45, GFR 50, fasting glucose of 137, AST of -4, ALT -4, alkaline phosphatase of 87. IMAGING: The patient had a CT scan in July that had shown a cavitating mass in the left lower lobe measuring 6 x 3.8 x 3.6 cm. There was a new asymmetric a nodule of 6 mm in the left upper lobe and a new spiculated nodule in the right lower lobe anteriorly measuring 1.1 cm. ASSESSMENT: 1. Stage IV non-small cell lung carcinoma now with maintenance immunotherapy. 2. Increase in his creatinine from 1.38 to 1.45, possibly indicative of high blood pressure but interstitial nephritis needs to be monitored and evaluated with these patients on immunotherapy. PLAN: The patient will be going for a restaging scan on November 10, and he will be following up with pulmonary in November 17. The patient will then follow up with us thereafter to determine whether or not to continue current therapy. Electronically Signed by Phuong Martell MD 10/25/2018 10:41 A DD: Phuong Martell MD 10/19/2018 05:05 P DT: [email or web address] 10/20/2018 10:56 A CC:
[2018-11-09 12:58] VITALS: BP 141/48
[2018-11-09 13:17] LABS: HEMATOCRIT 33.9 % (42.0-52.0); HEMOGLOBIN 11.1 g/dl (13.5-17.5); LYMPH % 23.6 % (24.0-44.0); MEAN CORPUSCULAR HEMOGLOBIN 33.4 pg (27.0-33.0); MEAN CORPUSCULAR HGB CONC 32.7 g/dl (32.0-36.5); MEAN CORPUSCULAR VOLUME 102.2 fl (80.0-96.0); NEUTROPHILS # 5.8 10^3/uL (1.8-7.7); NEUTROPHILS % 68.1 % (36.0-66.0); RED BLOOD COUNT 3.32 10^6/uL (4.30-6.10); WHITE BLOOD COUNT 8.5 10^3/uL (4.0-10.0)
[2018-11-09 13:32] LABS: ALBUMIN 3.8 GM/DL (3.5-5.2); BLOOD UREA NITROGEN 42 MG/DL (6-20); CALCIUM LEVEL 9.2 MG/DL (8.5-10.2); CARBON DIOXIDE LEVEL 22 MEQ/L (23-31); CHLORIDE LEVEL 108 MMOL/L (98-107); CREATININE FOR GFR 1.47 MG/DL (0.90-1.30); GLOMERULAR FILTRATION RATE 49.3 (>42); GLUCOSE, FASTING 107 MG/DL (70-105); POTASSIUM SERUM 4.5 MMOL/L (3.5-5.1); SODIUM LEVEL 140 MMOL/L (135-145); TOTAL PROTEIN 6.8 GM/DL (6.4-8.3)
--- NOTE | 2018-11-10 10:17 | MEDONC ---
MEDICAL ONCOLOGY OFFICE NOTE DATE OF SERVICE: 11/09/2018 REASON FOR FOLLOWUP: Carcinoma of the lung. This is a very pleasant, 78-year-old gentleman with a history of stage IV non-small cell lung carcinoma. He is currently on the pembrolizumab maintenance therapy after being given Taxotere and carboplatin. To date, he has been tolerating medication well and has not had any signs of pneumonitis. The patient was originally diagnosed with a moderately differentiated squamous cell carcinoma found by transbronchial biopsy. The PD-L1 score was 30% consistent with a low expression. The patient's initial tumor mass was in the left lower lobe hilar lymphadenopathy on the left side mediastinal adenopathy. The patient's past medical history includes coronary artery disease, hypertension, diabetes. His current medications include: - aspirin 325 mg p.o. daily - Plavix 75 mg p.o. daily - diltiazem 240 mg p.o. daily - Lasix 20 mg daily - glimepiride 4 mg daily - iron 27 mg p.o. daily REVIEW OF SYSTEMS: 1. CONSTITUTIONAL: Some tiredness, fatigue, no cough and fatigue at the end of the day. 2. EYES: No blurring of vision, no visual loss partial or complete, no tearing, redness. 3. EAR, NOSE, THROAT and MOUTH: No hearing loss, sinusitis, sore throat, dental problems, tooth pain. Denies dysphagia, mouth sores, bleeding. 4. RESPIRATORY: Denies asthma, wheezing, cough, sputum production. 5. GI: No nausea, vomiting, diarrhea or constipation, change in color or caliber of stool. No hemorrhoids. No rectal bleeding. No hematemesis, heartburn. 6. : No hematuria, dysuria, frequency, stones. 7. CV: No chest pain, palpitations, murmur, fainting, lightheadedness or chest pressure. 8. ENDOCRINE: No cold or heat intolerance, diabetes, polyuria, polydipsia. 9. MUSCULOSKELETAL: Occasional joint aches and pains and minimal chronic low back pain with no new changes. 10. ALLERGY/IMMUNOLOGY: No new allergies to food, medications. 11. HEMATOLOGICAL: Denies bruising, bleeding, lymph node enlargement. 12. PSYCHIATRIC: Denies depression, agitation, memory loss, panic attacks. 13. SKIN: Denies rashes, moles, dryness, pigment changes. 14. NEUROLOGIC: Denies dizziness, syncope, seizures, vertigo, weakness, tremor. PHYSICAL EXAMINATION: CONSTITUTIONAL: His temperature is 97.7, pulse is 87, respiratory rate is 18, BP is 141/40, pulse oximetry was in 100. PHYSICAL EXAMINATION: CONSTITUTIONAL: ECOG status 1/4 HEENT: NC. AT, PERRL, EOMI, sclera is white, nonicteric, nares intact, oropharynx clear, no thrush, no buccal lesions, tongue without lesions, facial area without abnormalities. NECK: Trachea midline. No thyromegaly. No masses. CHEST: Normal AP diameter. No truncal lesions noted. No rales, rhonchi noted. Clear to auscultation and percussion. The patient has occasional expiratory wheezes. CV: S1 and S2 appreciated, no murmurs, gallops or rubs. Rhythm RR. ABDOMEN: Soft, nontender. No HSM. No ascites. No guarding or rebound. : No CVA tenderness. Normal external genitalia, normal secondary sexual characteristics. EXTREMITIES: Upper extremities: No edema, swelling, abnormalities. Lower extremities show no cyanosis, clubbing or edema. No varicosities. Good capillary filling noted on right and left lower extremity. NEUROLOGICAL: Cranial nerves II- XII intact. No focal deficits, motor and sensory intact, no tremor. VASCULAR: Pulses equal and present in upper extremities and lower extremities. Good capillary filling in lower extremities. No carotid bruits. No abdominal bruits. MUSCULOSKELETAL: No point tenderness. Normal spinal alignment. Range of motion joints, no limitation. SKIN: No lesions, rashes noted. PSYCH: No agitation, normal behavior. LABORATORY DATA: His WBC count is 8.5, hemoglobin is 11.1 over hematocrit 33.9, MCV of 102, RDW of 11.7. Neutrophil percentage is 68%, lymphocytes are 23%. Chemistries show a sodium of 140, potassium of 4.5, chloride of 108, CO2 22, BUN of 42, creatinine is 1.47, it was 1.38 on 09/28/2018, calcium is 9.2, total bilirubin 0.3, AST of 6, ALT is -4, alkaline phosphatase is 85, and his TSH done on to 09/08/2018 was 2.36. The patient's most recent imaging study was done in July. CT scan of the chest was done July 16 and this had shown a cavitating mass in left lower lobe measuring 6 x 3.8 x 3.6 cm and a new asymmetric nodule measuring 6 mm in the left upper lobe. There is a new spiculated nodule in the right lower lobe anteriorly. The CT scan of the abdomen done on 07/16/2018 shows some chronic changes in the hip, sacroiliac joint. The liver, gallbladder, spleen, and pancreas were all within normal limits. IMPRESSION: 1. At this time is low PD-L1 expression 30%, currently tolerating the pembrolizumab. 2. Elevation of his creatinine over time from 1.27 to 1.4, history of diabetes as well. The concern with the patient's rising creatinine while he is on the pembrolizumab is that these patients can develop a nephritis. Elevation in his creatinine is likely multifactorial. I will continue to monitor this, check the patient for urinalysis on his next followup visit and have renal involved as well if it continues to elevate. Monitor the TSH and monitor for any signs of hypophysitis as well and pneumonitis. Copy to Dr. [facility] Electronically Signed by Phuong Martell MD 11/11/2018 08:24 A DD: Phuong Martell MD 11/10/2018 07:35 A DT: [email or web address] 11/10/2018 09:56 A CC: Bryon Maldonado MD
[2018-11-21 13:11] VITALS: BP 108/75
--- NOTE | 2018-11-24 07:09 | MEDONC ---
HEMATOLOGY/ONCOLOGY PROGRESS NOTE DATE OF SERVICE: 11/21/2018 REASON FOR VISIT: This is a very pleasant 78-year-old gentleman with a history of stage IV non-small cell carcinoma currently on Keytruda therapy. He is currently on maintenance status post Taxol/carboplatin. His PDL score was 30% consistent with low expression and his tumor mass of the left lower lobe and the hilar lymphadenopathy has remained stable. He has had a complaint of itching of the skin and flaking of the skin. He has tried various ointments and creams. He has had no signs of any cough, pneumonitis or hepatitis associated with immunotherapy. PAST MEDICAL/SURGICAL/FAMILY HISTORY: Have remained unchanged since his office visit of 09/28/2018. CURRENT MEDICATIONS: Include the following: aspirin 325 mg p.o. daily, Plavix 75 mg p.o. daily, Cartia XT 240 mg p.o. daily, ferrous gluconate 27 mg p.o. daily, Lasix 20 mg p.o. daily, glimepiride 4 mg p.o. daily and lidocaine cream apply as directed. REVIEW OF SYSTEMS: 1. CONSTITUTIONAL: He has tiredness and fatigue. 2. EYES: No blurring of vision, no visual loss partial or complete, no tearing, redness. 3. EAR, NOSE, THROAT and MOUTH: No hearing loss, sinusitis, sore throat, dental problems, tooth pain. Denies dysphagia, mouth sores, bleeding. 4. RESPIRATORY: Denies asthma, wheezing, cough, sputum production. 5. GI: No nausea, vomiting, diarrhea or constipation, change in color or caliber of stool. No hemorrhoids. No rectal bleeding. No hematemesis, heartburn. 6. : No hematuria, dysuria, frequency, stones. 7. CV: No chest pain, palpitations, murmur, fainting, lightheadedness or chest pressure. 8. ENDOCRINE: No cold or heat intolerance, diabetes, polyuria, polydipsia. 9. MUSCULOSKELETAL: No new joint stiffness, joint swelling, myalgias, gout. 10. ALLERGY/IMMUNOLOGY: No new allergies to food, medications. 11. HEMATOLOGICAL: Denies bruising, bleeding, lymph node enlargement. 12. PSYCHIATRIC: Denies depression, agitation, memory loss, panic attacks. 13. SKIN: Denies any visible rashes, but states that he has itching of the skin and feels as if his skin is getting thicker. 14. NEUROLOGIC: Denies dizziness, syncope, seizures, vertigo, weakness, tremor. PHYSICAL EXAMINATION: CONSTITUTIONAL: ECOG status 1/4. His temperature is 97, pulse is 132, respiratory rate 20, BP 108/75, and pulse oximetry is 100%. Pulse was taken when the patient had just sat down at the exam table. On repeat, it went down to 120 and then to 110. Weight 56.2 kg. The patient has generalized muscle wasting. His appearance is appropriate for his 78 years. He has some muscle wasting and thinness. HEENT: NC. AT, PERRL, EOMI, sclera is white, nonicteric, nares intact, oropharynx clear, no thrush, no buccal lesions, tongue without lesions, facial area without abnormalities. NECK: Trachea midline. No thyromegaly. No masses. CHEST: On auscultation of his lungs, he has occasional expiratory sibilance. CV: S1 and S2 appreciated, no murmurs, gallops or rubs. Rhythm RR. ABDOMEN: Soft, nontender. No HSM. No ascites. No guarding or rebound. : No CVA tenderness. Normal external genitalia, normal secondary sexual characteristics. EXTREMITIES: Upper extremities: No edema, swelling, abnormalities. Lower extremities show no cyanosis, clubbing or edema. No varicosities. Good capillary filling noted on right and left lower extremity. NEUROLOGICAL: Cranial nerves II- XII intact. No focal deficits, motor and sensory intact, no tremor. VASCULAR: Pulses equal and present in upper extremities and lower extremities. Good capillary filling in lower extremities. No carotid bruits. No abdominal bruits. MUSCULOSKELETAL: No point tenderness. Normal spinal alignment. Range of motion joints, no limitation. SKIN: No lesions, rashes noted. PSYCH: No agitation, normal behavior. LABORATORIES: WBC count is 8.5, hemoglobin is 11.1/33, MCV of 102, RDW of 11.7, platelets of 270,000. Serum chemistries show a sodium of 140, potassium of 4.5, chloride 108, CO2 is 22, BUN of 42, creatinine is 1.47, fasting glucose is 107, calcium is 9.2, AST is 6, ALT is -4, his total protein is 6.8, and albumin is 3.8. IMPRESSION: 78-year-old gentleman with non-small cell lung carcinoma. CT scan of the chest that was done on 11/10/2018 showed relatively stable appearance with an 11 mm nodule in the periphery of the right upper lobe with a spiculated dense mass, but no other signs of any adenopathy. On his CT scan of the abdomen, the patient had also shown stable hyperplastic changes to the bilateral adrenal glands and no signs of any liver disease. PLAN: To reassess the patient's skin. This could possibly be a manifestation of immunotherapy. I have asked him to apply some current moisturizer now at present. I will continue to follow up with the skin. He may even need a biopsy if he continues to show any spread of this rash. In the meantime, I have advised the patient that his disease is currently stable. He shows no signs of any hypothyroidism, hepatitis, pneumonitis or arthritis. Electronically Signed by Phuong Martell MD 11/24/2018 12:53 P DD: Phuong Martell MD 11/22/2018 02:05 P DT: mei 11/24/2018 06:55 A CC:
[2018-12-07 10:09] LABS: HEMATOCRIT 32.3 % (42.0-52.0); HEMOGLOBIN 10.3 g/dl (13.5-17.5); LYMPH % 17.1 % (24.0-44.0); MEAN CORPUSCULAR HEMOGLOBIN 32.4 pg (27.0-33.0); MEAN CORPUSCULAR HGB CONC 31.9 g/dl (32.0-36.5); MEAN CORPUSCULAR VOLUME 101.5 fl (80.0-96.0); NEUTROPHILS # 6.7 10^3/uL (1.8-7.7); NEUTROPHILS % 76.1 % (36.0-66.0); RED BLOOD COUNT 3.18 10^6/uL (4.30-6.10); WHITE BLOOD COUNT 8.8 10^3/uL (4.0-10.0)
[2018-12-07 10:19] VITALS: BP 135/69
[2018-12-07 10:20] LABS: ALBUMIN 3.6 GM/DL (3.5-5.2); BLOOD UREA NITROGEN 64 MG/DL (6-20); CARBON DIOXIDE LEVEL 28 MEQ/L (23-31); CHLORIDE LEVEL 103 MMOL/L (98-107); CREATININE FOR GFR 1.91 MG/DL (0.90-1.30); GLOMERULAR FILTRATION RATE 36.5 (>42); GLUCOSE, FASTING 223 MG/DL (70-105); POTASSIUM SERUM 4.5 MMOL/L (3.5-5.1); SODIUM LEVEL 139 MMOL/L (135-145); TOTAL PROTEIN 6.7 GM/DL (6.4-8.3)
[2018-12-07 11:30] VITALS: BP 125/65
--- NOTE | 2018-12-10 10:58 | MEDONC ---
HEMATOLOGY/ONCOLOGY PROGRESS NOTE: DATE OF SERVICE: 12/07/2018 REASON FOR VISIT: The patient is here for evaluation of pembrolizumab therapy. The patient has a history of stage IV non-small cell lung carcinoma currently on maintenance Keytruda after Taxol and carboplatin therapy. The patient had a PD-L1 score of 30% consistent with expression and was noted to have a tumor in the left lower lobe and the left hilar lymphadenopathy. The patient has now completed the Taxol carboplatin. The patient had shown some mild renal insufficiency with a creatinine maximum of 1.4. The patient's most recent imaging was done on 11/10/2018 where the patient had shown liver, spleen, pancreas, gallbladder, kidneys were all within normal limits. He had shown no signs of any intraperitoneal disease. The patient had shown a medial left upper lobe area showing a spiculated 1.9 cm tissue component and a mediastinum with stable adenopathy with pretracheal and precarinal lymph nodes measuring up to 1.7 cm. He has not shown any signs of any Taxol neuropathy to date. The patient is here for treatment cycle number nine on a maintenance regimen. The patient has not shown any signs of any autoimmune, hepatitis, nephritis. PAST MEDICAL HISTORY: The patient's past medical history includes atrial fibrillation, congestive heart failure and squamous cell carcinoma of the left lower lung. ALLERGIES: No known drug allergies. FAMILY HISTORY: His family history is otherwise noncontributory. 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 Was a to 2-1/2 pack a day smoker for about 20 years and drank beer a regular basis up until about 3-4 years ago. MEDICATIONS: Medications include: - amiodarone 200 mg p.o. daily - aspirin 325 mg p.o. daily - carvedilol 3.125 mg p.o. b.i.d. - ferrous sulfate 27 mg p.o. daily - Lasix 40 mg p.o. daily - glimepiride 4 mg p.o. daily - Claritin 10 mg p.o. p.r.n. after chemotherapy. REVIEW OF SYSTEMS: 1. CONSTITUTIONAL: Patient relates generally tiredness, fatigue. He has had no muscle cramps. He is able to perform all of his activities of daily living without much impediment. 2. EYES: No blurring of vision, no visual loss partial or complete, no tearing, redness. 3. EAR, NOSE, THROAT and MOUTH: No hearing loss, sinusitis, sore throat, dental problems, tooth pain. Denies dysphagia, mouth sores, bleeding. 4. RESPIRATORY: Denies asthma, wheezing, cough, sputum production. 5. GI: No nausea, vomiting, diarrhea or constipation, change in color or caliber of stool. No hemorrhoids. No rectal bleeding. No hematemesis, heartburn. 6. : No hematuria, dysuria, frequency, stones. 7. CV: No chest pain, palpitations, murmur, fainting, lightheadedness or chest pressure. 8. ENDOCRINE: No cold or heat intolerance, diabetes, polyuria, polydipsia. 9. MUSCULOSKELETAL: No new joint stiffness, joint swelling, myalgias, gout. He has contracture deformities of both hands secondary to arthritis. 10. ALLERGY/IMMUNOLOGY: No new allergies to food, medications. 11. HEMATOLOGICAL: Denies bruising, bleeding, lymph node enlargement. 12. PSYCHIATRIC: Denies depression, agitation, memory loss, panic attacks. 13. SKIN: Denies rashes, moles, dryness, pigment changes. 14. NEUROLOGIC: He denies any history of any numbness or tingling of the fingertips and toes as no issue of any joint weakness. PHYSICAL EXAMINATION: CONSTITUTIONAL: ECOG status 0/4. On the patient's physical examination he is awake, alert. He is oriented. He appears to be currently in no acute distress. His weight is 54.6 K elsie's his BSA is 1.59 and temperature is 97.5, pulse is 63, respiratory rate is 16, BP is 125/65, pulse oximetry is 96. HEENT: NC. AT, PERRL, EOMI, sclera is white, nonicteric, nares intact, oropharynx clear, no thrush, no buccal lesions, tongue without lesions, facial area without abnormalities. NECK: Trachea midline. No thyromegaly. No masses. CHEST: Normal AP diameter. No truncal lesions noted. Flattened diaphragms bilaterally. He has occasional sibilance on auscultation. CV: S1 and S2 appreciated, no murmurs, gallops or rubs. Rhythm RR. ABDOMEN: Soft, nontender. No HSM. No ascites. No guarding or rebound. : No CVA tenderness. Normal external genitalia, normal secondary sexual characteristics. EXTREMITIES: Upper extremities: No edema, swelling, abnormalities. Lower extremities show no cyanosis, clubbing or edema. He has bilateral contracture deformities consistent with attending contracture on both hands and thickening of the DIP PIP joints No varicosities. Good capillary filling noted on right and left lower extremity. NEUROLOGICAL: Cranial nerves II- XII intact. No focal deficits, motor and sensory intact, no tremor. VASCULAR: Pulses equal and present in upper extremities and lower extremities. Good capillary filling in lower extremities. No carotid bruits. No abdominal bruits. MUSCULOSKELETAL: No point tenderness. Normal spinal alignment. Range of motion joints, no limitation. SKIN: No lesions, rashes noted. PSYCH: No agitation, normal behavior. on the head is LABORATORY DATA: WBC count is 8.8, hemoglobin and hematocrit 10.3/32.3, MCV 101.5, RDW 12.7, platelet count 336, neutrophils 76.1, lymphocytes 17.1. Sodium 139, potassium 4.5, chloride 103, CO2 28, BUN of 64, creatinine 1.91, calcium 9.0, AST 4, ALT -4, total bilirubin 0.5. 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 PLAN: 1. Plan is to continue to monitor the patient with imaging studies on a q. 3-month basis. May alternate CT scan with PET scan. 2. Monitor the patient's creatinine level. He may be showing some signs of autoimmune nephritis secondary to the Keytruda therapy. Consultation with nephrology may need to be made in the future. Electronically Signed by Phuong Martell MD 12/13/2018 02:46 P DD: Phuong Martell MD 12/09/2018 06:49 A DT: [email or web address] 12/10/2018 10:41 A CC:
[2018-12-30 09:25] LABS: HEMATOCRIT 33.5 % (42.0-52.0); HEMOGLOBIN 10.5 g/dl (13.5-17.5); LYMPH % 17.6 % (24.0-44.0); MEAN CORPUSCULAR HEMOGLOBIN 31.3 pg (27.0-33.0); MEAN CORPUSCULAR HGB CONC 31.3 g/dl (32.0-36.5); MEAN CORPUSCULAR VOLUME 99.7 fl (80.0-96.0); NEUTROPHILS # 7.8 10^3/uL (1.8-7.7); NEUTROPHILS % 75.3 % (36.0-66.0); RED BLOOD COUNT 3.36 10^6/uL (4.30-6.10); WHITE BLOOD COUNT 10.3 10^3/uL (4.0-10.0)
[2018-12-30 09:29] VITALS: BP 131/61
[2018-12-30 09:41] LABS: ALBUMIN 3.6 GM/DL (3.5-5.2); BLOOD UREA NITROGEN 70 MG/DL (6-20); CALCIUM LEVEL 8.8 MG/DL (8.5-10.2); CARBON DIOXIDE LEVEL 25 MEQ/L (23-31); CHLORIDE LEVEL 99 MMOL/L (98-107); CREATININE FOR GFR 2.58 MG/DL (0.90-1.30); GLOMERULAR FILTRATION RATE 25.8 (>42); GLUCOSE, FASTING 363 MG/DL (70-105); SODIUM LEVEL 135 MMOL/L (135-145); TOTAL PROTEIN 6.5 GM/DL (6.4-8.3)
--- NOTE | 2019-01-03 14:37 | MEDONC ---
HEMATOLOGY/ONCOLOGY PROGRESS NOTE DATE: 12/30/2018 This is a very pleasant 78-year-old gentleman with a history of stage IV non-small cell lung carcinoma on maintenance pembrolizumab therapy. The patient had a PD-L1 score of 30% consistent with expression and his tumor was located in the left lower lobe and left hilar lymphadenopathy. He had shown no signs of any autoimmune adverse side effects and has been tolerating. PAST MEDICAL HISTORY INCLUDES: Atrial fibrillation, congestive heart failure, squamous cell carcinoma of the left lower lung. ALLERGIES: He has no known drug allergies. FAMILY HISTORY: Is otherwise noncontributory. 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 He was a 2 1/2 day smoker for about 20 years and drink the beer. CURRENT MEDICATIONS INCLUDE: amiodarone 200 mg by mouth daily, aspirin 325 mg by mouth daily, Colace one tablet by mouth twice a day, ciprofloxacin 500 mg by mouth , ferrous sulfate 27 mg by mouth daily, Lasix 40 mg by mouth daily, glimepiride 4 mg by mouth daily, hydralazine 25 mg by mouth twice a day, isosorbide mononitrate. On his review of systems the patient denies any history of any cough, hematuria, skin rash or any nausea, vomiting or any diarrhea. On his physical examination his weight is 55.4 kg. His temperature is 96.9, pulse is 75, respiratory rate 18, BP is 131/61 and pulse oximetry is 98. Physical examination is HEENT is normocephalic, atraumatic. PERRL. EOMI. Sclerae is white, nonicteric. Oropharynx is otherwise clear. His neck is supple with no adenopathy. Chest: Decreased breath sounds at the bases. Cardiovascular: S1-S2 are appreciated with no murmurs. His abdomen is otherwise soft, nontender. His extremities show no cyanosis, no clubbing or any edema. On the patient's laboratories his WBC count is 10.3, hemoglobin is 10.5 over 33.5, platelet counts are 308,000, neutrophils of 75, lymphocytes are 17.6. Chemistries show a sodium of 135, potassium of 4.0, chloride 99, CO2 25, BUN 70, creatinine is 2.58, GFR is 25.8, fasting glucose is 363, calcium is 8.8, total bilirubin 0.4, AST of 10, ALT of -4, alkaline phosphatase of 73 and LDH 147. IMPRESSION: Stage IV non-small cell lung carcinoma currently tolerating the pembrolizumab. PLAN: Is to continue the pembrolizumab at the current doses and have the patient be restaged every [address] scan of the chest and/or PET whatever is due. Monitor for any signs of any autoimmune nephritis, pneumonitis, or colitis. Electronically Signed by Phuong Martell MD 01/04/2019 12:00 P DD: Phuong Martell MD 01/03/2019 02:20 P DT: joo 01/03/2019 02:29 P CC:
[2019-03-29 15:25] VITALS: BP 162/55
--- NOTE | 2019-03-31 15:51 | MEDONC ---
HEMATOLOGY/ONCOLOGY PROGRESS NOTE: DATE OF SERVICE: 03/29/2019 This is a very pleasant 78-year-old gentleman who has a history of being on pembrolizumab for non-small cell lung carcinoma. 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 The patient had a PD-L1 score of 30% with expression on his disease within the left lower lobe as well as left hilar lymphadenopathy. He had not had any complaints of any diarrhea, skin lesions or elevations of liver functions. PAST MEDICAL HISTORY: Includes a-fib, congestive heart failure squamous cell carcinoma left lower lung. Family history and social history have all remained unchanged since his date of service a 12/30/2018. CURRENT MEDICATIONS: Tylenol 650 mg by mouth every 4 hours as needed, amiodarone 200 mg by mouth daily, aspirin 325 mg by mouth daily, carvedilol 3.125 mg by mouth twice a day, ferrous sulfate 325 mg by mouth daily, Lasix 40 mg by mouth daily, glimepiride 4 mg by mouth twice a day, isosorbide mononitrate 30 mg by mouth daily, loratadine 10 mg by mouth daily and prednisone 20 mg daily as per directed by a bench assembly inspector. REVIEW OF SYSTEMS: He is otherwise tired or fatigued. He has not had any hemoptysis, fatigue or any diarrhea. 1. CONSTITUTIONAL: No weight loss, fever chills or night sweats. 2. EYES: No blurring of vision, no visual loss partial or complete, no tearing, redness. 3. EAR, NOSE, THROAT and MOUTH: No hearing loss, sinusitis, sore throat, dental problems, tooth pain. Denies dysphagia, mouth sores, bleeding. 4. RESPIRATORY: Denies asthma, wheezing, cough, sputum production. 5. GI: No nausea, vomiting, diarrhea or constipation, change in color or caliber of stool. No hemorrhoids. No rectal bleeding. No hematemesis, heartburn. 6. : No hematuria, dysuria, frequency, stones. 7. CV: No chest pain, palpitations, murmur, fainting, lightheadedness or chest pressure. 8. ENDOCRINE: No cold or heat intolerance, diabetes, polyuria, polydipsia. 9. MUSCULOSKELETAL: No new joint stiffness, joint swelling, myalgias, gout. 10. ALLERGY/IMMUNOLOGY: No new allergies to food, medications. 11. HEMATOLOGICAL: Denies bruising, bleeding, lymph node enlargement. 12. PSYCHIATRIC: Denies depression, agitation, memory loss, panic attacks. 13. SKIN: Denies rashes, moles, dryness, pigment changes. 14. NEUROLOGIC: Denies dizziness, syncope, seizures, vertigo, weakness, tremor. PHYSICAL EXAMINATION: CONSTITUTIONAL: ECOG status 1/4. Temperature 98.4, pulse 83, respiratory rate 18, blood pressure 162/55, pulse oximetry 98 and his examination is otherwise very frail, thin elderly gentleman and appearance is appropriate for age. He does have significant muscle wasting. HEENT: NC. AT, PERRL, EOMI, sclera is white, nonicteric, nares intact, oropharynx clear, no thrush, no buccal lesions, tongue without lesions, facial area without abnormalities. NECK: Trachea midline. No thyromegaly. No masses. CHEST: Normal AP diameter. No truncal lesions noted. No rales, rhonchi or wheezes noted. Clear to auscultation and percussion. CV: S1 and S2 appreciated, no murmurs, gallops or rubs. Rhythm RR. ABDOMEN: Soft, nontender. No HSM. No ascites. No guarding or rebound. : No CVA tenderness. Normal external genitalia, normal secondary sexual characteristics. EXTREMITIES: Upper extremities: No edema, swelling, abnormalities. Lower extremities show no cyanosis, clubbing or edema. No varicosities. Good capillary filling noted on right and left lower extremity. NEUROLOGICAL: Cranial nerves II- XII intact. No focal deficits, motor and sensory intact, no tremor. VASCULAR: Pulses equal and present in upper extremities and lower extremities. Good capillary filling in lower extremities. No carotid bruits. No abdominal bruits. MUSCULOSKELETAL: No point tenderness. Normal spinal alignment. Range of motion joints, no limitation. SKIN: No lesions, rashes noted. PSYCH: No agitation, normal behavior. On the patient's most recent imaging studies he had a CT scan of the chest in October 2010 showing relatively chronic and stable appearing changes. He still had an 11 mm nodule in the periphery of the right upper lobe and is somewhat spiculated mass components the medial left lower lobe chronic opacity which may be minimally decrease in size. He also showed diffuse chronic areas of fibrosis scarring and minimal brawny bronchiectasis primarily in the mid to lower lobes that have been unchanged. There was no obvious new or acute mediastinal pleuroparenchymal process. All of this is consistent with a stable disease. The patient has been on the pembrolizumab almost the year. He started his first dose in May 2018. He started carboplatin paclitaxel in May 2018. He started the pembrolizumab in June 2018. PLAN: Plan is to do a restaging CT scan have discussions with the patient regarding therapy. He is not exactly a good candidate for cytotoxic chemotherapy. Electronically Signed by Phuong Martell MD 03/31/2019 04:34 P DD: Phuong Martell MD 03/29/2019 04:59 P DT: aura 03/31/2019 07:29 A CC:
[2019-04-18 15:08] VITALS: BP 158/49
--- NOTE | 2019-04-20 09:29 | MEDONC ---
HEMATOLOGY/ONCOLOGY PROGRESS NOTE DATE: 04/18/2019 The patient is here today on followup and evaluation of non-small cell lung carcinoma. The patient had been diagnosed with a PD-L1 score of 30% and had been on single agent pembrolizumab. Unfortunately he had developed an interstitial nephritis and nephrology had been noticing these changes. He has since been pulled off of the medication and has been advised not to go back up on it in order to have preservation of his kidney functions. The patient had a restaging PET scan done in the interval since his last visit and he is here with his for those discussions. TREATMENT HISTORY: 1. Diagnosed with metastatic squamous cell lung cancer with a left lower lobe lesion PET scan had shown hypermetabolic uptake in the left lower lobe on March of 2018 as well as subcarinal, precarinal and left hilar lymphadenopathy as well as contralateral right lung nodules. The patient had been initiated on palliative carboplatinum and paclitaxel in May of 2018. The patient then had pembrolizumab incorporated into his treatment when the FDA had approved it. Pembrolizumab was added in 06/27/2018. The pembrolizumab had been added on the third cycle of chemotherapy on June 29, 2018 and the patient had decided to discontinue carboplatinum paclitaxel after three cycles. The patient had initially on his first scan shown a decrease in the size of the left lower lung lesion in July of 2018. He was tolerating it well at that particular point. OTHER PAST MEDICAL HISTORY: Atrial fibrillation, CHF, interstitial nephritis. PAST SURGICAL HISTORY: Includes: A right lobectomy at the age of 20 due to a spot on his lung, CABG time three in 2012, he had a cardiac ablation in 2018. FAMILY HISTORY: His father in an MVA. His mother had history of diabetes. He has three children and one sibling. SOCIAL HISTORY: He is , lives with his who is supportive. They are retired smoking. Smoking - he still continues to smoke about 10 cigarettes a day. Denies any history of any alcohol. REVIEW OF SYSTEMS: He has occasional tiredness and fatigue. No cough. Expressed some concern about his kidney function and he has occasional joint aches and pains. Occasional shortness of breath on exertion, but otherwise the remainder of that 12-point review of systems is negative. REVIEW OF SYSTEMS: 1. CONSTITUTIONAL: No weight loss, fever chills or night sweats. 2. EYES: No blurring of vision, no visual loss partial or complete, no tearing, redness. 3. EAR, NOSE, THROAT and MOUTH: No hearing loss, sinusitis, sore throat, dental problems, tooth pain. Denies dysphagia, mouth sores, bleeding. 4. RESPIRATORY: Denies asthma, wheezing, cough, sputum production. 5. GI: No nausea, vomiting, diarrhea or constipation, change in color or caliber of stool. No hemorrhoids. No rectal bleeding. No hematemesis, heartburn. 6. : No hematuria, dysuria, frequency, stones. 7. CV: No chest pain, palpitations, murmur, fainting, lightheadedness or chest pressure. 8. ENDOCRINE: No cold or heat intolerance, diabetes, polyuria, polydipsia. 9. MUSCULOSKELETAL: No new joint stiffness, joint swelling, myalgias, gout. 10. ALLERGY/IMMUNOLOGY: No new allergies to food, medications. 11. HEMATOLOGICAL: Denies bruising, bleeding, lymph node enlargement. 12. PSYCHIATRIC: Denies depression, agitation, memory loss, panic attacks. 13. SKIN: Denies rashes, moles, dryness, pigment changes. 14. NEUROLOGIC: Denies dizziness, syncope, seizures, vertigo, weakness, tremor. PHYSICAL EXAMINATION: His ECOG is 1 out of 4. He has a height of 167 cm, weight of 57.6, BSA is 1.63, temperature is 98, pulse is 76, respiratory rate is 18, BP is 158/49, pulse oximetry is 98. His HEENT is normocephalic, atraumatic. PERRL. EOMI. Sclerae is white, nonicteric. Oropharynx is otherwise clear. His neck is supple with no adenopathy. His chest is clear to auscultation and percussion. Cardiovascular: S1-S2 are appreciated with no murmurs. His abdomen is otherwise soft, nontender. His extremities show no cyanosis, no clubbing or any edema. LABORATORIES: WBC is 135, potassium is 4.0, chloride 99, CO2 25, BUN of 70, creatinine of 2.58, fasting glucose of 363, calcium is 8.8, total bilirubin 0.4, AST of 10, ALT of -4, alkaline phosphatase of 73. On his 03/31/2019 blood work his creatinine is 2.28. His serum sodium is 136, potassium is 4.5. On his 03/09/2019 CBC, WBC is 9.2, hemoglobin is 10.3 over 32.3, MCV of 98.8, RDW of 16, platelets of 233, neutrophils are 75 and lymphocytes of 17.6. PET scan shows improved PET findings both the report as well as the pictures were reviewed with the patient and his . There is some residual hypermetabolic activity noted in the cavitary lesion in the left lower lobe as well as one in the right precarinal lymph node improved right pulmonary nodules off of therapy. The standard uptake value here is improved , it is 2.62, it was previously 15.6. The small nodule in the right mid lung zone also improved with a SUV of 1.75 and had previously measured 4.1. The smaller right lower lobe nodule is a barely visible. ASSESSMENT: 1. The patient has very small areas of residual disease after immunotherapy. 2. 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 PLAN: The patient has stable disease. We will keep him off of immunotherapy and he does not want any cytotoxic chemotherapy. He had rise in creatinine over 2, we will keep him off of the therapy, repeat a CT scan without contrast in approximately 3 months and consider possible non-chemotherapy treatment related modalities such as possible CyberKnife treatment. CC: Dr. Wu Electronically Signed by Phuong Martell MD 04/20/2019 11:31 A DD: Phuong Martell MD 04/18/2019 04:46 P DT: joo 04/20/2019 08:19 A CC: Bryon Maldonado MD
[2019-07-27 13:14] VITALS: BP 142/45
--- NOTE | 2019-07-30 10:03 | MEDONC ---
HEMATOLOGY ONCOLOGY PROGRESS NOTE: DATE OF SERVICE: 07/27/2019 The patient accompanied by his is here today for followup and evaluation of non-small lung cancer. The patient had been diagnosed with a PDL1 score of 30% lung cancer and currently he is on single agent pembrolizumab. Unfortunately he had developed an interstitial nephritis and was followed by nephrology. Pembrolizumab has since been discontinued and was advised not to put back on it in order to preserve the kidney functions. The patient had a restaging PET/CT scan done since last visit and he is here with his for discussion and to review. TREATMENT HISTORY: 1. 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 PET scan had shows hypermetabolic uptake in the left lower lobe on March 2018 as well as subcarinal, precarinal, and left hilar lymphadenopathy as well as contralateral right lung nodules. The patient had been initiated on palliative carboplatin and Taxol in June 2018. The patient then had pembrolizumab incorporated into his treatment. Pembrolizumab was added 06/27/2018 and it was added on the third cycle of chemotherapy on 06/29/2018. The patient decided to discontinue carboplatin and Taxol after three cycles. On the PET scan, the patient responded well with a decrease in the size of the left lower lung lesion in July 2018. Patient was tolerating chemotherapy at that time well. OTHER PAST MEDICAL HISTORY: Atrial fibrillation. CHF. Interstitial nephritis. PAST SURGICAL HISTORY: Right lobectomy at the age of 20 due to a spot on his lung. He had three times CABG in 2013 and had a cardiac ablation in 2019. REVIEW OF SYSTEMS: He has tiredness and fatigue. No cough. He is concerned of his kidney function. He has occasional joint aches and pains. Occasional short of breath on exertion. The remainder of the review of systems is unremarkable. PHYSICAL EXAMINATION: Weight 58.1 kg, temperature 97.3, pulse 72 per minute, respiratory rate 16 per minute, blood pressure 142/45, oxygen saturation 97% at room air. ECOG performance status is 1/4. HEENT: Normocephalic, atraumatic. PERRLA, EOMI. Sclera anicteric. Mouth and throat are clear. Neck is supple with no adenopathy. Chest is clear to auscultation and percussion. Cardiovascular system: S1 and S2 heard. No murmur. No gallop. Abdomen: Soft, nontender. No organomegaly. No masses felt. Extremities: Shows no cyanosis, no clubbing or any edema. LAB DATA: WBC 10.3, HGB 10.5, platelet count 308. Chemistry: NA 135, K 4, BUN 70, creatinine 2.58. The patient had PET/CT scan on 07/18/2019. The impression is: There are hypermetabolic lymph node foci in the precarinal and right paraesophageal superior mediastinal lymph nodes. There is interstitial infiltrative disease in the right lower lobe and right upper lobe posteriorly which raises the question of lymphangitic tumor spread. Residual uptake in the left lower lobe is unchanged from most recent prior PET/CT scan. ASSESSMENT: 1. The patient has persistent CT scan abnormality. There might also be progression of disease with lymphangitic spread at the right upper lobe posteriorly. 2. 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 PLAN: The patient has chronic kidney disease and he would like to preserve his kidney function and the treatment was stopped. He would like to consult with fiscal analyst first to see whether he can tolerate any more of the treatment for lung cancer. His availability of chemotherapy regimens are limited now. He may not tolerate any more chemo or immunotherapy. Will refer to radiation oncologist to evaluate whether he is still a candidate to receive SBRT Cyberknife treatment. Electronically Signed by Fiona Bernardo MD 07/30/2019 01:19 P DD: Fiona Bernardo MD 07/27/2019 05:22 P DT: [email or web address] 07/30/2019 09:33 A CC:
[2019-08-28 14:00] LABS: BASO % 0.4 % (0.0-1.0); EOS # 0.6 10^3/uL (0.0-0.5); EOS % 7.1 % (0.0-3.0); HEMATOCRIT 29.8 % (42.0-52.0); HEMOGLOBIN 9.2 g/dl (13.5-17.5); LYMPH # 1.2 10^3/uL (1.5-5.0); LYMPH % 13.6 % (24.0-44.0); MEAN CORPUSCULAR HGB CONC 30.9 g/dl (32.0-36.5); MEAN CORPUSCULAR VOLUME 100.3 fl (80.0-96.0); MONO # 0.7 10^3/uL (0.0-0.8); MONO % 8.2 % (0.0-5.0); NEUTROPHILS # 5.9 10^3/uL (1.5-8.5); NEUTROPHILS % 69.8 % (36.0-66.0); PLATELET COUNT, AUTOMATED 297 10^3/uL (150-450); RED BLOOD COUNT 2.97 10^6/uL (4.30-6.10); WHITE BLOOD COUNT 8.5 10^3/uL (4.0-10.0)
[2019-08-28 14:34] LABS: ALBUMIN 3.2 GM/DL (3.2-5.2); BILIRUBIN,TOTAL 0.2 MG/DL (0.2-1.0); CALCIUM LEVEL 8.7 MG/DL (8.8-10.2); CREATININE FOR GFR 2.57 MG/DL (0.70-1.30); GLOMERULAR FILTRATION RATE 25.8 (>42); POTASSIUM SERUM 4.5 MEQ/L (3.5-5.1); TOTAL PROTEIN 7.4 GM/DL (6.4-8.2)
[2019-08-28 14:41] VITALS: BP 160/54
[2019-08-28 16:35] LABS: TOTAL PROTEIN,RANDOM URINE 9.9 MG/DL (0.0-12.0)
[2019-08-28 16:45] LABS: BILIRUBIN,DIRECT < 0.1 MG/DL (0.0-0.2); FERRITIN 239 NG/ML (26-388); FREE T4 1.17 NG/DL (0.76-1.46); IRON (FE) 61 UG/DL (65-175); LDH LACTATE DEHYDROGENASE 210 U/L (87-241); PERCENT SATURATION 24.8 % (19.7-50.0); TOTAL IRON BINDING CAPACITY 246 UG/DL (250-450)
[2019-08-28 16:46] LABS: FOLATE 11.1 NG/ML; VITAMIN B12 LEVEL 442 PG/ML
--- NOTE | 2019-08-30 11:22 | MEDONC ---
DATE OF SERVICE: 08/28/2019 REASON FOR FOLLOWUP: Squamous cell lung cancer. DIAGNOSIS AND TREATMENT HISTORY: Per prior notes. Metastatic squamous cell lung cancer. - 01/14/2018 LLL mass bx - invasive squamous carcinoma moderately differentiated, PD-L1 - 30%. 03/2018 PET - hypermetabolic uptake LLL mass, subcarinal, precarinal, and Lt hilar LAD and contralateral Rt lung nodules. - 05/2018 - commenced carboplatin paclitaxel x 2 cycles, pembrolizumab added w/ 3rd cycle on 06/15/2018. The patient refused for the chemotherapy after cycle 3, continued on single-agent pembrolizumab. Last dose of pembrolizumab 12/07/2018. 11/10/2018 CT chest - stable 11 mm RUL nodule w/ spiculated dense mass, no other signs of adenopathy. CT a/p - stable hyperplastic changes to bilateral adrenal glands, no other evidence of disease. - Then initiated on active surveillance. INTERVAL HISTORY: I met the patient for the first time today. He was hospitalized in June for atrial fibrillation and congestive heart failure. Comes to the office with a walker. Is independent in most of his ADLs. Relies on his family and to drive him around and for ADLs. Except for longstanding shortness of breath on exertion, he denies any other cardiopulmonary symptoms at this time. No pain or bleeding at any site. Has a good appetite and sleep. Denies any recent weight loss. Denies any other complaints at this time. REVIEW OF SYSTEMS: Constitutional: No fevers, no chills, no night sweats, no fatigue, no malaise, no weight loss. Cardiopulmonary: No chest pain, no palpitations, no dizziness. No cough. No hemoptysis. Chronic stable ABDI. Gastrointestinal: No pain, no nausea, no vomiting, no constipation, no diarrhea. No hematemesis, no melena, no hematochezia. Genitourinary: No dysuria, no hematuria, no incontinence, no frequency, no urgency. Musculoskeletal: No bony, no muscle, no joint aches. ORE DRYER: No tingling, no weakness, no numbness, no headaches, no dizziness, no seizures, no speech, no visual disturbances. All other systems are negative unless otherwise specified in HPI. PAST MEDICAL HISTORY: Atrial fibrillation. Congestive heart failure. 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 Hypertension. Diabetes. 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 MEDICATIONS: Reviewed in EMR. ALLERGIES: PENICILLIN - rash and "right-side paralysis - I don't know." VITAL SIGNS: Reviewed in EMR - stable. PHYSICAL EXAM: HEENT: Oral mucosa - pink and moist, no conjunctival pallor, sclerae anicteric bilaterally. LYMPHATICS: No cervical, supraclavicular, axillary, or inguinal LAD. LUNGS: Decreased breath sounds left lung base, absent breath sounds right one-third lung base (history of right lower lobectomy at age 20). HEART: Regular rhythm, no murmurs, no S3/S4, no rubs. ABDOMEN: Soft, nontender, bowel sounds normoactive, no hepatosplenomegaly. EXTREMITIES: No edema bilaterally. Calves nontender bilaterally. SKIN/NAILS: No nail changes. No petechiae/ecchymosis or other skin changes. MUSCULOSKELETAL: Spine nontender to palpation. INVESTIGATIONS: Reviewed in EMR. ASSESSMENT/PLAN: 1. Metastatic squamous cell carcinoma of the left lung with contralateral right lung nodules per prior notes - diagnosis and treatment history as above. The patient last received Keytruda immunotherapy in 11/2018. He has been on surveillance since. From what I can gather, there was a concern for rising kidney function secondary to nephritis while on Keytruda. He is followed by nephrology. 07/18/2019 PET scan, mild hypermetabolic LN uptake in two right paraesophageal LN below thoracic inlet, maximum SUV 4.1, mild precarinal LAD, SUV 4.47, pleural thickening and parenchymal fibrosis left midlung zone SUV 3.08 - this is the area where previous study showed a large hypermetabolic mass, area is essentially unchanged from recent PET CT of 04/11/2019. New interstitial infiltrate in RLL but thickening of inner lobular septi in an area of similar interstitial disease in posterior aspect of RUL with increased FDG accumulation, SUV 2.44, not quite hypermetabolic but no mass here, rather interstitial lung disease. Appearance is suspicious for lymphocytic neoplastic spread versus inflammatory infiltrate. Call placed to radiology to discuss, since the patient has had a right lower lobectomy by his history. He is asymptomatic currently. With regard to next steps, I advised that we should obtain a brain MRI (woc w/ GFR <30) to ensure no evidence of brain mets. Fortunately, he is currently asymptomatic. Further recommendations to follow review of above. 2. Macrocytic anemia- component of anemia is secondary to anemia of chronic disease from underlying malignancy, though this typically causes normocytic anemia. Check B12, folate panel, check hemolysis labs, check paraproteinemia markers, check TSH. 3. Chronic kidney disease - stage IV, question of component of interstitial nephritis from Keytruda - will discuss with radiology. Await above anemia workup, add iron indices - replenish any low stores. If all of the above anemia workup is negative, will consider erythropoietin-stimulating agents for a target hemoglobin of 11 to 12 for anemia secondary to chronic kidney disease. 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 All of the above was relayed to the patient who was given an opportunity to ask questions that were answered to satisfaction. The patient voiced an understanding and agreed to proceed. Electronically Signed by Brian Plaza MD 09/18/2019 08:04 A DD: Brian Plaza MD 08/28/2019 08:45 P DT: [email or web address] 08/30/2019 09:36 A CC:
[2020-01-01] MEDS: SODIUM CHLORIDE 0.9% INJ 10 ML SYR IV PRN ×2 (15:02→15:10)
[2020-02-01] MEDS: SODIUM CHLORIDE 0.9% INJ 10 ML SYR IV PRN ×2 (14:56→15:51)
[2020-02-01 15:02] VITALS: BP 188/65
[2020-02-01 16:04] LABS: BASO % 0.4 % (0.0-1.0); EOS # 0.3 10^3/uL (0.0-0.5); EOS % 3.7 % (0.0-3.0); HEMATOCRIT 31.6 % (42.0-52.0); HEMOGLOBIN 10.1 g/dl (13.5-17.5); LYMPH # 0.9 10^3/uL (1.5-5.0); LYMPH % 12.3 % (24.0-44.0); MEAN CORPUSCULAR HEMOGLOBIN 32.9 pg (27.0-33.0); MEAN CORPUSCULAR VOLUME 102.9 fl (80.0-96.0); MONO # 0.6 10^3/uL (0.0-0.8); MONO % 7.3 % (0.0-5.0); NEUTROPHILS # 5.8 10^3/uL (1.5-8.5); NEUTROPHILS % 75.9 % (36.0-66.0); PLATELET COUNT, AUTOMATED 223 10^3/uL (150-450); RED BLOOD COUNT 3.07 10^6/uL (4.30-6.10); WHITE BLOOD COUNT 7.6 10^3/uL (4.0-10.0)
[2020-02-01 16:19] LABS: IRON (FE) 61 UG/DL (65-175); PERCENT SATURATION 27.6 % (19.7-50.0); TOTAL IRON BINDING CAPACITY 221 UG/DL (250-450); TOTAL PROTEIN 7.5 GM/DL (6.4-8.2)
[2020-02-01 16:21] LABS: ALBUMIN 3.5 GM/DL (3.2-5.2); BILIRUBIN,TOTAL 0.2 MG/DL (0.2-1.0); CALCIUM LEVEL 8.4 MG/DL (8.8-10.2); CREATININE FOR GFR 2.63 MG/DL (0.70-1.30); GLOMERULAR FILTRATION RATE 25.1 (>42); TOTAL PROTEIN 7.3 GM/DL (6.4-8.2)
--- NOTE | 2020-02-01 17:20 | MEDONCPDOC ---
Medical Oncology Office Note Date of Service: Feb 01, 2020 Diagnosis/Treatment History Metastatic squamous cell lung cancer with presumed contralateral lung metastases. TREATMENT SUMMARY Left lower lobe lung squamous cell carcinoma from a needle biopsy 12/2017 showing invasive squamous carcinoma, moderately differentiated, PD-L1, tumor pro portion score of 30%. PET scan 03/2018 showing hypermetabolic uptake in left lower lobe lung mass, subcarinal, precarinal and left hilar lymphadenopathy as well as contralateral (right) lung nodules. Started palliative carboplatin/paclitaxel chemotherapy May 2018. Pembrolizumab added on the third cycle (06/2018) and patient declined to continue Carboplatin/Paclitaxel chemotherapy after [address] scan 07/2018 showing decrease in size of the left lower lobe lung lesion and stable disease elsewhere. On pembrolizumab 06/2018 to 11/2018. Discontinued because of worsening renal function. Interval History Mr. Sorto reports that he underwent an ICD/defibrillator insertion last Wednesday. He had bleeding in his right groin site of catheter insertion up to yesterday, but this has resolved since then. He reports no cough. No shortness of breath. No chest pains. His appetite has been fair and his weight has been stable. He follows up with Dr. Carmona for chronic renal insufficiency. Rest of review of systems as outlined below. Allergies Coded Allergies: Penicillins (Verified Allergy, Mild, RASH, 03/08/19) Home Medications Active Scripts Amiodarone HCl (Amiodarone HCl) 200 Mg Tablet, 200 MG PO BID, #30 TAB Prov:FAB ROLLE MD 04/24/19 Reported Medications Trazodone HCl (Trazodone HCl) 50 Mg Tablet, 0.5 TAB PO QPM for 30 Days, #30 TAB 7//20 Febuxostat (Uloric) 40 Mg Tablet, 1 TAB PO DAILY for 30 Days, #30 TAB 7//20 Amiodarone HCl (Amiodarone HCl) 200 Mg Tablet, 1 TAB PO DAILY for 30 Days, #30 TAB 7//20 Apixaban (Eliquis) 2.5 Mg Tablet, 2.5 MG PO BID for 30 Days, #60 TAB //20 Aspirin (Aspirin) 81 Mg Tab.chew, 1 TAB PO DAILY for pain for 30 Days, #30 TAB 7//20 Ipratropium/Albuterol Sulfate (Iprat-Albut 0.5-3(2.5) mg/3 ml) 3 Ml Ampul.neb, 1 VIAL NEB BID for 30 Days, #60 VIAL 07/27/19 Acetaminophen (Arthritis Pain Reliever) 650 Mg Tablet.er, 650 MG PO, TAB 07/27/19 Carvedilol (Carvedilol) 3.125 Mg Tablet, 3.125 MG PO BID for 30 Days, #60 TAB 07/27/19 Alprazolam (Xanax) 0.25 Mg Tablet, 0.25 MG PO BIDP PRN for anxiety MDD 2 Tablet(s) for 30 Days, #60 TAB 07/27/19 Ferrous Sulfate (Ferrous Sulfate) 325 Mg Tablet, 325 MG PO DAILY, TAB 03/08/19 Furosemide (Furosemide) 40 Mg Tablet, 40 MG PO DAILY, TAB 03/08/19 Glimepiride (Glimepiride) 4 Mg Tab, 4 MG PO DAILY 04/27/18 Discontinued Reported Medications Potassium Chloride (K-Tab ER) 10 Meq Tablet.er, 10 MEQ PO, TAB 07/27/19 Aspirin (Aspirin) 325 Mg Tab, 325 MG PO DAILY 03/09/18 Past Medical History Past Medical History: Atrial fibrillation. Congestive heart failure. 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 Hypertension. Diabetes. 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 Family History: His daughter had breast cancer. No other cancer history. Social History: He is a former smoker for the past 68 years, up to 2-1/2 packs per day.. He quit smoking earlier this year 2019. He used to drink beer regularly but has not had any alcoholic beverage as of 2013. 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 Review of Systems General: Reports: Normal Appetite; Denies: Chills, Night Sweats, Fatigue, Malaise Constitutional: Denies: Chills, Fever, Malaise, Night Sweats, Weakness, Fatigue, Weight Loss, Lethargy Eyes: Denies: Pain, Vision change, Conjunctivae inflammation, Eyelid inflammation HEENT: Denies: Head Aches, Ear Pain, Dysphagia, Sinus Congestion, Post Nasal Drip, Sore Throat, Epistaxis Skin: Denies: Rash, Lesions, Jaundice, Bruising Pulmonary: Denies: Dyspnea, Cough, Pleuritic Chest Pain Cardiovascular: Denies: Chest Pain, Palpitations, Orthopnea, Paroxysmal Noc. Dyspnea, Edema, Lt Headedness Breast: Reports: New Breast Lumps / Masses Gastrointestinal: Reports: Constipation (for which she uses a laxative.); Denies: Nausea, Vomiting, Abdominal Pain, Diarrhea Genitourinary: Reports: Frequency (likely related to furosemide.); Denies: Dysuria, Incontinence, Hematuria Hematologic: Reports: Other Hematologic (recent bleeding on the groin at site of cardiac catheterization, but has since resolved.); Denies: Bruising, Bleeding Excessively, Petecchia Endocrine: Denies: Polydipsia, Polyphagia, Polyuria, Heat Intolerance, Cold Intolerance Musculoskeletal: Denies: Other (no new bone pains.) Neurological: Reports: Weakness, Numbness; Denies: Change in Speech Psych: Reports: Mood Normal Physical Examination General Exam: Positive: Alert, Cooperative, No Acute Distress, Oriented Times Three; Negative: Mild Distress, Moderate Distress, Severe Distress Eye Exam: Positive: PERRLA, Conjunctiva & lids normal; Negative: EOMI, Sclera icteric, Ptosis ENT EXAM: Positive: Atraumatic, Mucous membr. moist/pink, Pharynx Normal, Tongue Midline, Nares Patent; Negative: Pharyngeal Edema Neck Exam: Positive: Supple; Negative: JVD, Thyromegaly, Lymphadenopathy Chest Exam: Positive: Clear to auscultation, Diminished (likely secondary to emphysema); Negative: Normal air movement, Rales, Rhonchi, Wheezing Heart Exam: Positive: Rate Normal, Irregular Rhythm, Normal S1, Normal S2; Negative: Tachycardic, Bradycardic, Regular Rhythm, Gallops, Murmurs Abdomen Exam: Positive: Normal bowel sounds, Soft; Negative: BS Hyperactive, BS Hypoactive, Tenderness, Hepatospenomegaly, Mass, Hernia Extremity Exam: Positive: Normal pulses; Negative: Clubbing, Cyanosis, Edema, Tenderness, Swelling Skin Exam: Positive: Nl turgor and temperature; Negative: Rash, Breakdown, Lesion Neuro Exam: Positive: Normal Speech, Normal Tone; Negative: Normal Gait Psych Exam: Positive: Mental status NL, Mood NL, Oriented x 3 Ht / Wt Ht / Wt Height:5 Feet 4 Inches Weight: 57.600 Kg Vital Signs Vital Signs Date Time Temp Pulse Resp B/P (MAP) Pulse Ox O2 Delivery O2 Flow Rate FiO2 02/01/20 15:02 98.0 57 16 188/65 (106) 100 Room Air Laboratory Data Laboratory Tests Test 02/01/20 15:45 Blood Urea Nitrogen 88 MG/DL (7-18) H Creatinine 2.63 MG/DL (0.70-1.30) H Glomerular Filtration Rate 25.1 (>42) L Fasting Glucose 140 MG/DL (70-100) H Calcium Level 8.4 MG/DL (8.8-10.2) L Total Bilirubin 0.2 MG/DL (0.2-1.0) Aspartate Amino Transf (AST/SGOT) 16 U/L (7-37) Alanine Aminotransferase (ALT/SGPT) 35 U/L (12-78) Total Protein 7.3 GM/DL (6.4-8.2) Sodium Level 138 MEQ/L (136-145) Albumin 3.5 GM/DL (3.2-5.2) Alkaline Phosphatase 81 U/L (45-117) Potassium Level 4.0 MEQ/L (3.5-5.1) Chloride Level 103 MEQ/L (98-107) Carbon Dioxide Level 27 MEQ/L (21-32) Anion Gap 8 MEQ/L (8-16) Laboratory Tests 02/01/20 15:45 Assessment/Plan 79-year-old with metastatic squamous cell lung cancer with presumed contralateral lung metastases. Most recently on Pembrolizumab up to November 2018, but this was put on hold for worsening renal function. The patient has not been on any treatment since November 2018. Most recent PET scan 07/2019 showed active disease but patient has not wanted to restart any systemic treatment. I recommended a restaging PET/CT scan at this time. Other systemic treatments may be considered if this should show disease prog ression. The patient has agreed to have a PET CT scan. CC TO: CC TO: Primary Care Provider: Dr. Bryon Maldonado Consulting Provider: Dr. Villa Carmona. STEVO FORD MD Feb 01, 2020 17:20
[2020-02-01 18:05] LABS: FERRITIN 653 NG/ML (26-388)
[2020-02-06 15:47] LABS: ALBUMIN 4.22 GM/DL (3.29-5.55); ALBUMIN % 56.3 % (55.8-66.1); ALPHA-1-GLOBULIN % 5.3 % (2.9-4.9); ALPHA-2-GLOBULINS 1.09 GM/DL (0.42-0.99); ALPHA-2-GLOBULINS % 14.5 % (7.1-11.8); BETA-1-GLOBULINS 0.43 GM/DL (0.28-0.60); BETA-1-GLOBULINS % 5.7 % (4.7-7.2); BETA-2-GLOBULINS % 6.7 % (3.2-6.5); GAMMA GLOBULIN % 11.5 % (11.1-18.8); GAMMA GLOBULINS 0.86 GM/DL (0.65-1.58)
[~2020-05-31] VITALS: Ht 162.6 cm; Wt 54.8 kg
[~2020-05-31 13:15] MED LIST changes: +CARBOPLATIN IV ONE; +CARBOplatin 230 MG in NS 250 ML IV ONE; +FOSAPREPITANT PERIPHERAL LINE 30 MIN INFUSION (PREMIX) IV ONE; +NS IV ONE; +PACLITAXEL IV ONE; +PALONOSETRON 250 MCG IV IV ONE; +PEGFILGRASTIM 6MG/0.6ML ONPRO KIT (J2505 PER 6MG) (FOR ONCOLOGY) SC ONE; +PEMBROLIZUMAB OVER 30 MINUTES IV ONE; +SODIUM CHLORIDE 0.9% INJ 10 ML SYR IV PRN; +dexameTHASONE 10 MG IV IV ONE
[2020-05-31 13:25] VITALS: BP 106/65
--- NOTE | 2020-05-31 14:21 | MEDONCPDOC ---
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 TREATMENT SUMMARY Left lower lobe lung squamous cell carcinoma from a needle biopsy 12/2017 showing invasive squamous carcinoma, moderately differentiated, PD-L1, tumor proportion score of 30%. PET scan 03/2018 showing hypermetabolic uptake in left lower lobe lung mass, subcarinal, precarinal and left hilar lymphadenopathy as well as contralateral (right) lung nodules. Started palliative carboplatin/paclitaxel chemotherapy May 2018. Pembrolizumab added on the third cycle (06/2018) and patient declined to continue Carboplatin/Paclitaxel chemotherapy after [address] scan 07/2018 showing decrease in size of the left lower lobe lung lesion and stable disease elsewhere. On pembrolizumab 06/2018 to 11/2018. Discontinued because of worsening renal function. Interval History 79-year-old on follow-up for a metastatic squamous cell lung cancer. Reports right shoulder pain. Has also been coughing more frequently according to the patient's . Also feels weak and tired. On follow-up with Dr. Maldonado. He tells me that he had an x-ray of his shoulder and chest earlier this week at [facility]. Allergies Coded Allergies: Penicillins (Verified Allergy, Mild, RASH, 03/08/19) Home Medications Active Scripts Lidocaine/Prilocaine (Lidocaine-Prilocaine Cream) 2.5%/2.5% Cream..g., 1 DOSE TOP ASDIRECTED, #30 GRAMS 1 Refill Apply dime size to port area. Do not rub in, cover with saran wrap to protect clothing. Prov:STEVO FORD MD 05/31/20 Reported Medications Gabapentin (Gabapentin) 400 Mg Capsule, 300 MG PO BID for 30 Days, #45 CAP 05/31/20 Trazodone HCl (Trazodone HCl) 50 Mg Tablet, 1 TAB PO QPM for 30 Days, #30 TAB 02/01/20 Febuxostat (Uloric) 40 Mg Tablet, 1 TAB PO DAILY for 30 Days, #30 TAB 02/01/20 Amiodarone HCl (Amiodarone HCl) 200 Mg Tablet, 1 TAB PO DAILY for 30 Days, #30 TAB 02/01/20 Apixaban (Eliquis) 2.5 Mg Tablet, 2.5 MG PO BID for 30 Days, #60 TAB 02/01/20 Aspirin (Aspirin) 81 Mg Tab.chew, 1 TAB PO DAILY for pain for 30 Days, #30 TAB 02/01/20 Ipratropium/Albuterol Sulfate (Iprat-Albut 0.5-3(2.5) mg/3 ml) 3 Ml Ampul.neb, 1 VIAL NEB BID for 30 Days, #60 VIAL 07/27/19 Acetaminophen (Arthritis Pain Reliever) 650 Mg Tablet.er, 650 MG PO, TAB 07/27/19 Carvedilol (Carvedilol) 3.125 Mg Tablet, 3.125 MG PO BID for 30 Days, #60 TAB 07/27/19 Alprazolam (Xanax) 0.25 Mg Tablet, 0.25 MG PO BIDP PRN for anxiety MDD 2 Tablet(s) for 30 Days, #60 TAB 07/27/19 Ferrous Sulfate (Ferrous Sulfate) 325 Mg Tablet, 325 MG PO DAILY, TAB 03/08/19 Furosemide (Furosemide) 40 Mg Tablet, 40 MG PO DAILY, TAB 03/08/19 Glimepiride (Glimepiride) 4 Mg Tab, 4 MG PO DAILY 04/27/18 Past Medical History Past Medical History: Atrial fibrillation. Congestive heart failure. 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 Hypertension. Diabetes. 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 Family History: His daughter had breast cancer. No other cancer history. Social History: He is a former smoker for the past 68 years, up to 2-1/2 packs per day.. He quit smoking earlier this year 2019. He used to drink beer regularly but has not had any alcoholic beverage as of 2013. 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 Review of Systems General: Reports: Fatigue, Normal Appetite; Denies: Chills, Night Sweats, Malaise Constitutional: Reports: Weakness, Fatigue; Denies: Chills, Fever, Malaise, Night Sweats, Weight Loss, Lethargy Eyes: Denies: Pain, Vision change, Conjunctivae inflammation, Eyelid inflammation HEENT: Denies: Head Aches, Ear Pain, Dysphagia, Sinus Congestion, Post Nasal Drip, Sore Throat, Epistaxis Skin: Denies: Rash, Lesions, Jaundice, Bruising Pulmonary: Reports: Cough; Denies: Dyspnea, Pleuritic Chest Pain Cardiovascular: Denies: Chest Pain, Palpitations, Orthopnea, Paroxysmal Noc. Dyspnea, Edema, Lt Headedness Breast: Reports: New Breast Lumps / Masses Gastrointestinal: Reports: Constipation (for which she uses a laxative.); Denies: Nausea, Vomiting, Abdominal Pain, Diarrhea Genitourinary: Reports: Frequency (likely related to furosemide.); Denies: Dysuria, Incontinence, Hematuria Hematologic: Reports: Other Hematologic (recent bleeding on the groin at site of cardiac catheterization, but has since resolved.); Denies: Bruising, Bleeding Excessively, Petecchia Endocrine: Denies: Polydipsia, Polyphagia, Polyuria, Heat Intolerance, Cold Intolerance Musculoskeletal: Reports: Shoulder pain; Denies: Other (no new bone pains.) Neurological: Reports: Weakness; Denies: Numbness, Change in Speech Psych: Reports: Mood Normal Physical Examination General Exam: Positive: Alert, Cooperative, No Acute Distress, Oriented Times Three; Negative: Severe Distress Eye Exam: Positive: PERRLA, Conjunctiva & lids normal; Negative: EOMI, Sclera icteric, Ptosis ENT EXAM: Positive: Atraumatic, Mucous membr. moist/pink, Pharynx Normal, Tongue Midline, Nares Patent; Negative: Pharyngeal Edema Neck Exam: Positive: Supple; Negative: JVD, Thyromegaly, Lymphadenopathy Chest Exam: Positive: Clear to auscultation, Diminished (likely secondary to emphysema); Negative: Normal air movement, Rales, Rhonchi, Wheezing Heart Exam: Positive: Rate Normal, Irregular Rhythm, Normal S1, Normal S2; Negative: Regular Rhythm, Gallops, Murmurs Abdomen Exam: Positive: Normal bowel sounds, Soft; Negative: Tenderness, Hepatospenomegaly, Mass, Hernia Extremity Exam: Positive: Normal pulses; Negative: Clubbing, Cyanosis, Edema, Tenderness, Swelling Skin Exam: Positive: Nl turgor and temperature; Negative: Rash, Breakdown, Lesion Neuro Exam: Positive: Normal Speech, Normal Tone; Negative: Normal Gait Psych Exam: Positive: Mental status NL, Mood NL, Oriented x 3 Ht / Wt Ht / Wt Height:5 Feet 4 Inches Weight: 54.800 Kg Vital Signs Vital Signs Date Time Temp Pulse Resp B/P (MAP) Pulse Ox O2 Delivery O2 Flow Rate FiO2 05/31/20 13:25 96.5 66 16 106/65 (79) 93 Room Air Assessment/Plan 79-year-old with metastatic squamous cell lung cancer with presumed contralateral lung metastases. Most recently on Pembrolizumab up to November 2018, but this was put on hold for worsening renal function. The patient has not been on any treatment since November 2018. PET scan 02/27/2020 showed disease progression with multiple new foci of hypermetabolic uptake and a previously seen precarinal hypermetabolic focus increased in size and activity. I discussed that Pembrolizumab would be a reasonable treatment option. However, his kidney function, previously worsened on Pembrolizumab. Additional treatment options include chemotherapy such as carboplatin/gemcitabine chemotherapy. He would not be a candidate for any targeted treatment at this time such as one of the tyrosine kinase inhibitors as we do not have results of molecular markers. Will ask [facility] to run this test, although at that time in 2018, my impression was there was scanty/insufficient specimen for testing. If it turns out that molecular markers cannot be performed on the previous pathology specimen, we will arrange for another biopsy. In the meantime a reasonable treatment option would be to start carboplatin/gemcitabine chemotherapy. Risks include nausea, vomiting, bone marrow suppression with risk of infection, fatigue, allergic reactions, and cytopenias, among others. He was given printed information of this. He wanted to discuss this with Dr Dr. Carmona, his roentgenology teacher first. Will schedule chemotherapy, first cycle once patient makes a decision on chemotherapy. CC TO: CC TO: Primary Care Provider: Dr. Bryon Maldonado Consulting Provider: Dr. Villa Carmona. STEVO FORD MD May 31, 2020 13:42
[2020-05-31 15:07] LABS: BASO % 0.2 % (0.0-1.0); EOS # 0.1 10^3/uL (0.0-0.5); EOS % 0.6 % (0.0-3.0); HEMATOCRIT 29.3 % (42.0-52.0); LYMPH # 0.8 10^3/uL (1.5-5.0); LYMPH % 7.6 % (24.0-44.0); MEAN CORPUSCULAR HEMOGLOBIN 31.9 pg (27.0-33.0); MEAN CORPUSCULAR HGB CONC 30.7 g/dl (32.0-36.5); MEAN CORPUSCULAR VOLUME 103.9 fl (80.0-96.0); MONO # 0.7 10^3/uL (0.0-0.8); MONO % 6.5 % (0.0-5.0); NEUTROPHILS # 9.3 10^3/uL (1.5-8.5); PLATELET COUNT, AUTOMATED 303 10^3/uL (150-450); RED BLOOD COUNT 2.82 10^6/uL (4.30-6.10); WHITE BLOOD COUNT 11.1 10^3/uL (4.0-10.0)
[2020-05-31 15:29] LABS: ALBUMIN 3.3 GM/DL (3.2-5.2); BILIRUBIN,TOTAL 0.2 MG/DL (0.2-1.0); CALCIUM LEVEL 8.9 MG/DL (8.8-10.2); CREATININE FOR GFR 2.99 MG/DL (0.70-1.30); GLOMERULAR FILTRATION RATE 21.7 (>42); POTASSIUM SERUM 3.8 MEQ/L (3.5-5.1); TOTAL PROTEIN 7.4 GM/DL (6.4-8.2)
== END | disposition home or self-care (01) ==
LOC: M ONCM 05-05 07:48
PROVIDERS: ATTEND Internal Medicine Medical Oncology
DX: C34.90 Malignant neoplasm of unspecified part of unspecified bronchus or lung (principal); D64.9 Anemia, unspecified; Z79.899 Other long term (current) drug therapy
CPT/HCPCS: 36591; 80053; 82248; 82378; 82607; 82728; 82746; 83010; 83550; 83615; 84165; 84439; 84443; 85025; 85027; 85046; 86300; 86335; 86850; 86880; 86900; 86901; 86920; 96365; 96367; 96375; 96377; 96413; 96415; 96417; 96523; G0463; J1100; J1453; J1642; J2469; J2505; J9045; J9267; J9271; P9016